=== PATIENT | male | born 1950 | race Caucasian/White ===

== ENCOUNTER 2019-05-07 16:52 | Outpatient (RCR) | payer MEDICARE, MEDICAID, SELFPAY | END 2019-06-03 00:01 | LOC: WPT 16:52 | PROVIDERS: Family Provider Nurse Practitioner Family; Visit Provider Nurse Practitioner Family | DX: M23.303 Other meniscus derangements, unspecified medial meniscus, right knee (principal) | CPT/HCPCS: 97110 ×5; 97112; 97162 ==

== ENCOUNTER → 2019-06-24 09:29 | Outpatient (BNVA) | payer MEDICARE, MEDICAID, SELFPAY | PROVIDERS: Family Provider Nurse Practitioner Family; PCP Nurse Practitioner Family; Visit Provider Nurse Practitioner | DX: M17.0 Bilateral primary osteoarthritis of knee (principal); E11.40 Type 2 diabetes mellitus with diabetic neuropathy, unspecified; F17.220 Nicotine dependence, chewing tobacco, uncomplicated; Z79.891 Long term (current) use of opiate analgesic | CPT/HCPCS: 99213; 99214 ==

== ENCOUNTER → 2019-07-11 12:12 | Outpatient (BNVA) | payer MEDICARE, MEDICAID, SELFPAY | PROVIDERS: Family Provider Nurse Practitioner Family; PCP Nurse Practitioner Family; Visit Provider Nurse Practitioner Family | DX: E11.9 Type 2 diabetes mellitus without complications (principal); E34.9 Endocrine disorder, unspecified; Z12.5 Encounter for screening for malignant neoplasm of prostate; D64.9 Anemia, unspecified; E11.621 Type 2 diabetes mellitus with foot ulcer; E11.69 Type 2 diabetes mellitus with other specified complication; F52.21 Male erectile disorder | CPT/HCPCS: 36415; 80053; 83036; 83540; 84403; 85025; G0103 ==

== ENCOUNTER → 2019-07-23 11:28 | Outpatient (BNVA) | payer MEDICARE, MEDICAID, SELFPAY | PROVIDERS: Family Provider Nurse Practitioner Family; PCP Nurse Practitioner Family; Visit Provider Nurse Practitioner Family | DX: L98.499 Non-pressure chronic ulcer of skin of other sites with unspecified severity (principal); M79.672 Pain in left foot; M25.872 Other specified joint disorders, left ankle and foot; M77.32 Calcaneal spur, left foot | CPT/HCPCS: 11042; 73630 ==

== ENCOUNTER 2019-07-28 09:31 | Outpatient (RCR) | payer MEDICARE, MEDICAID, SELFPAY | END 2019-08-02 23:59 | disposition home or self-care (01) | LOC: WOUND 09:31 | PROVIDERS: Family Provider Nurse Practitioner Family; PCP Nurse Practitioner Family; Visit Provider Nurse Practitioner Family | DX: E11.621 Type 2 diabetes mellitus with foot ulcer (principal); L97.522 Non-pressure chronic ulcer of other part of left foot with fat layer exposed | CPT/HCPCS: 11042; 87070; 87077; 87176; 87186; 87205; 99203; 99213; G0463; L3260 ==

== ENCOUNTER 2019-08-11 09:35 | Outpatient (RCR) | payer MEDICARE, MEDICAID, SELFPAY | END 2019-09-02 23:59 | disposition home or self-care (01) | LOC: WOUND 09:35 | PROVIDERS: Family Provider Nurse Practitioner Family; PCP Nurse Practitioner Family; Visit Provider Nurse Practitioner Family | DX: E11.621 Type 2 diabetes mellitus with foot ulcer (principal); L97.522 Non-pressure chronic ulcer of other part of left foot with fat layer exposed | CPT/HCPCS: 99212; 99214; G0463 ==

== ENCOUNTER → 2019-08-15 11:35 | Outpatient (BNVA) | payer MEDICARE, MEDICAID, SELFPAY | PROVIDERS: Family Provider Nurse Practitioner Family; PCP Nurse Practitioner Family; Visit Provider Nurse Practitioner Family | DX: E11.621 Type 2 diabetes mellitus with foot ulcer (principal); E11.69 Type 2 diabetes mellitus with other specified complication | CPT/HCPCS: 80053; 85025 ==

== ENCOUNTER → 2019-08-19 10:17 | Outpatient (BNVA) | payer MEDICARE, MEDICAID, SELFPAY | PROVIDERS: Family Provider Nurse Practitioner Family; PCP Nurse Practitioner Family; Visit Provider Nurse Practitioner | DX: M17.0 Bilateral primary osteoarthritis of knee (principal); E11.69 Type 2 diabetes mellitus with other specified complication; E11.40 Type 2 diabetes mellitus with diabetic neuropathy, unspecified; F17.210 Nicotine dependence, cigarettes, uncomplicated; Z79.891 Long term (current) use of opiate analgesic; Z71.6 Tobacco abuse counseling | CPT/HCPCS: 99213; 99214 ==

== ENCOUNTER → 2019-09-23 11:45 | Outpatient (BNVA) | payer MEDICARE, MEDICAID, SELFPAY | PROVIDERS: Family Provider Nurse Practitioner Family; PCP Nurse Practitioner Family; Visit Provider Nurse Practitioner Family | DX: E11.9 Type 2 diabetes mellitus without complications (principal); E11.69 Type 2 diabetes mellitus with other specified complication; E34.9 Endocrine disorder, unspecified | CPT/HCPCS: 80053; 84403 ==

== ENCOUNTER → 2019-10-09 14:05 | Outpatient (BNVA) | payer MEDICARE, MEDICAID, SELFPAY | PROVIDERS: Family Provider Nurse Practitioner Family; PCP Nurse Practitioner Family; Visit Provider Nurse Practitioner Family | DX: E11.29 Type 2 diabetes mellitus with other diabetic kidney complication (principal); E34.9 Endocrine disorder, unspecified; Z12.5 Encounter for screening for malignant neoplasm of prostate; D64.9 Anemia, unspecified; E11.621 Type 2 diabetes mellitus with foot ulcer; E11.69 Type 2 diabetes mellitus with other specified complication; F52.21 Male erectile disorder; E29.1 Testicular hypofunction; E11.65 Type 2 diabetes mellitus with hyperglycemia; I10 Essential (primary) hypertension; E55.9 Vitamin D deficiency, unspecified; K59.04 Chronic idiopathic constipation | CPT/HCPCS: 80053; 81001; 82306; 82607; 83036; 83540; 84443; 85025 ==

== ENCOUNTER → 2019-11-11 10:39 | Outpatient (BNVA) | payer MEDICARE, MEDICAID, SELFPAY | PROVIDERS: Family Provider Nurse Practitioner Family; PCP Nurse Practitioner Family; Visit Provider Nurse Practitioner Family | DX: E11.9 Type 2 diabetes mellitus without complications (principal); E34.9 Endocrine disorder, unspecified | CPT/HCPCS: 80053; 81001 ==

== ENCOUNTER 2019-11-13 14:31 | Outpatient (CLI) | payer MEDICARE, MEDICAID, SELFPAY ==
--- NOTE | 2019-11-13 | XR_ITS ---
WS: [id number] Left foot, 3 views, 11/13/2019 Clinical Data: PAIN, REDNESS, NON HEALING ULCER Comparison: Left foot, 07/23/2019 Findings: Patient has developed soft tissue swelling with subcutaneous air medial to the left first proximal an d distal phalanges. Cystic changes of the left first proximal phalanx again are noted. There is no spencer ne erosion or destruction associated with this subcutaneous air. The remainder of the phalanges show no changes from before. The tarsal bones and metatarsals are intact. There is a bunion at the head of the left first metatarsal. There is soft tissue swelling about the foot. No fractures or dislocations are seen. XR/XR foot LT min 3V* [id number] Impression: 1. Soft tissue swelling with soft tissue air medial to the left first toe which could represent soft tissue infection. 2. No evidence of bone destruction or osteomyelitis. 3. Osteoarthritic change with bunion at the head of the left first metatarsal. 4. Generalized swelling about the left foot.
[2019-11-13 16:44] LABS: Alanine Aminotransferase 12 U/L (0-41); Alkaline Phosphatase 83 IU/L (40-130); Anion Gap 17.2 (5-19); Aspartate Amino Transferase 15 U/L (0-40); Blood Urea Nitrogen 27 mg/dL (8-23); Calcium 9.3 mg/dL (8.5-10.5); Carbon Dioxide 25 mmol/L (22-29); Chloride 95 mmol/L (98-107); Globulin 2.8 g/dL (1.3-4.6); Glomerular Filtration Rate 37.6 mL/min (90-130); Glucose 233 mg/dL (65-115); Osmolality Calculated 280 mOsm/kg (285-295); Potassium 4.2 mmol/L (3.5-5.1); Sodium 133 mmol/L (136-145); Total Bilirubin 0.7 mg/dL (0.15-1.2); Total Protein 6.8 g/dL (6.6-8.7)
[2019-11-13 16:56] LABS: Basophils % 0.4 %; Eosinophils # 0.2 10^3/uL (0.0-0.8); Hematocrit 37.5 % (42.0-52.0); Hemoglobin 11.8 g/dL (11.7-16.6); Lymphocytes # 0.8 10^3/uL (0.8-4.8); Lymphocytes % 9.7 %; Mean Corpuscular HGB Conc 31.5 g/dL (30.0-36.0); Mean Corpuscular Hemoglobin 29.4 pg (28.0-34.0); Mean Corpuscular Volume 93.3 fL (80-94); Mean Platelet Volume 10.6 fL (7.4-10.4); Monocytes # 0.8 10^3/uL (0.2-0.9); Monocytes % 10.5 %; Neutrophils # 6.1 10^3/uL (1.8-7.7); Neutrophils % 75.9 %; Nucleated Red Blood Cells % 0 %; Platelet Count 121 10^3/cmm (130-400); Red Blood Count 4.02 10^6/uL (4.1-5.3); Red Cell Distribution Width 15.6 % (12.1-15.1)
== END 2019-11-13 14:32 | disposition home or self-care (01) ==
LOC: WOUND 14:33
PROVIDERS: Family Provider Nurse Practitioner Family; PCP Nurse Practitioner Family; Visit Provider Nurse Practitioner Family
DX: E11.621 Type 2 diabetes mellitus with foot ulcer (principal); L97.522 Non-pressure chronic ulcer of other part of left foot with fat layer exposed; M79.671 Pain in right foot
CPT/HCPCS: 36415; 73630; 80053; 85025; 99214; G0463

== ENCOUNTER 2019-11-14 15:16 | Outpatient (CLI) | payer MEDICARE, MEDICAID, SELFPAY | END 2019-11-14 15:17 | disposition home or self-care (01) | LOC: WOUND 15:17 | PROVIDERS: Family Provider Nurse Practitioner Family; PCP Nurse Practitioner Family; Visit Provider Surgery | DX: E11.621 Type 2 diabetes mellitus with foot ulcer (principal); L97.522 Non-pressure chronic ulcer of other part of left foot with fat layer exposed | CPT/HCPCS: 11043; 87070; 87077; 87176; 87186; 87205 ==

== ENCOUNTER 2019-11-15 21:13 | Inpatient (IN) | payer MEDICARE, MEDICAID, SELFPAY ==
[2019-11-15 22:01] VITALS: BP 126/72; PULSE 62; RESP 18; TEMP 37.2; O2SAT 97; BMI 37.3
--- NOTE | 2019-11-15 22:54 | XRR_ITS ---
PROCEDURE INFORMATION: Exam: XR Left Foot Complete Exam date and time: 11/15/2019 10:57 PM Age: 69 years old Clinical indication: Condition or disease; Other: Wound on left great toe; Prior surgery; Surgery date: Post-operative (0-2 days) TECHNIQUE: Imaging protocol: XR Left foot. Views: 3 or more views. COMPARISON: No relevant prior studies available. FINDINGS: Bones/joints: No definite radiographic evidence of osteolytic process to suggest active osteomyelitis left hallux. Primary osteoarthritis. Hammertoe deformities. Osteopenia. Soft tissues: Soft tissue swelling of the left hallux to include evidence of an open wound along the medial plantar aspect. Soft tissue swelling extensor surface of the left forefoot. No visible subcutaneous emphysema or radiopaque foreign body. XR/XR foot LT min 3V* [id number] IMPRESSION: No definite radiographic evidence of osteomyelitis left hallux.
[2019-11-15 23:11] LABS: Basophils % 0.6 %; Eosinophils # 0.2 10^3/uL (0.0-0.8); Eosinophils % 4.7 %; Hematocrit 38.2 % (42.0-52.0); Hemoglobin 11.8 g/dL (11.7-16.6); Lymphocytes # 1.2 10^3/uL (0.8-4.8); Lymphocytes % 23.9 %; Mean Corpuscular HGB Conc 30.9 g/dL (30.0-36.0); Mean Corpuscular Hemoglobin 28.5 pg (28.0-34.0); Mean Corpuscular Volume 92.3 fL (80-94); Mean Platelet Volume 9.9 fL (7.4-10.4); Monocytes # 0.5 10^3/uL (0.2-0.9); Monocytes % 10.5 %; Neutrophils % 59.7 %; Nucleated Red Blood Cells % 0 %; Platelet Count 149 10^3/cmm (130-400); Red Blood Count 4.14 10^6/uL (4.1-5.3); Red Cell Distribution Width 15.3 % (12.1-15.1); White Blood Count 5.1 10^3/uL (4.0-10.0)
[2019-11-15] MEDS: piperacillin-tazobactam 3.375 GM in sodium chloride 0.9% (plus) 50 ML IV (23:18)
[2019-11-15 23:19] VITALS: BP 130/71; PULSE 57; RESP 16; O2SAT 96
[2019-11-15 23:29] LABS: Alanine Aminotransferase 20 U/L (0-41); Alkaline Phosphatase 87 IU/L (40-130); Anion Gap 19.6 (5-19); Aspartate Amino Transferase 17 U/L (0-40); Blood Urea Nitrogen 25 mg/dL (8-23); C Reactive Protein 87.9 mg/L (0.0-4.9); Calcium 9.4 mg/dL (8.5-10.5); Carbon Dioxide 23 mmol/L (22-29); Chloride 94 mmol/L (98-107); Globulin 3.6 g/dL (1.3-4.6); Glomerular Filtration Rate 37.6 mL/min (90-130); Glucose 200 mg/dL (65-115); Osmolality Calculated 276 mOsm/kg (285-295); Potassium 4.6 mmol/L (3.5-5.1); Sodium 132 mmol/L (136-145); Total Bilirubin 0.5 mg/dL (0.15-1.2); Total Protein 7.6 g/dL (6.6-8.7)
[2019-11-15] MEDS: vancomycin 1,000 MG in sodium chloride 0.9% 250 ML 250 MG IV (23:51)
[2019-11-16] VITALS (9 sets, daily range): BP systolic 112–174; BP diastolic 64–78; PULSE 55–70; RESP 16–18; TEMP 36.4–37.1; O2SAT 94–99
--- NOTE | 2019-11-16 00:03 | W.ED.SKABFB ---
HPI - Skin/Abscess/Foreign Bdy General: Chief complaint: Skin/Abscess/Foreign Body Stated complaint: LEFT FOOT WOUND/DIABETIC Time Seen by Provider: 11/15/19 22:38 History of Present Illness: HPI narrative: 69-year-old diabetic male presenting with an open wound on the left toe with swelling, increased redness, and a temperature of 99 at above at home. He has been dealing with a diabetic wound to that left toe for quite some time. He was debrided in the wound care clinic earlier in the week. He was placed on antibiotics on . The toe swelling is getting worse. was concerned because of some quite material within the wound itself. complaint: lesion and other Onset (ago): day(s) Tetanus up to date: yes Location: L foot (Great toe) Severity: moderate Quality: other Pain Consistency: constant Associated symptoms: Reports fever(s); Deny nausea, short of breath or vomiting Treatments prior to arrival: bandages, antibiotic and other (Debridement) Review of Systems Const: Reports: fever(s) Eyes: Denies: change in vision ENMT: Denies: odynophagia, epistaxis or sinus pain Card: Reports: swelling of feet/ankles; Denies: chest pain, palpitations or irregular heart rhythm Resp: Denies: dyspnea, productive cough, non-productive cough or wheezing GI: Denies: nausea or vomiting : Denies: difficulty urinating or dysuria Musc: Reports: joint redness and joint warmth; Denies: neck pain or back pain Skin/Breast: Reports: rash and erythema; Denies: pruritus Neuro: Denies: headache(s), dizziness or vertigo Psych: Denies: anxiety PFSH ED PFSH: Medical History Chewing tobacco use Chronic gout DDD (degenerative disc disease) Diabetic neuropathy, painful Encounter for long-term opiate analgesic use Erectile disorder, lifelong, generalized, mild Essential hypertension History of diabetic ulcer of foot Hypotestosteronemia Mixed hyperlipidemia Opioid contract exists Primary osteoarthritis of knees, bilateral Type 2 diabetes mellitus with other specified complication Last A1c 6.7 Type 2 diabetes mellitus without complications Vitamin D deficiency Surgical History Hx of basal cell carcinoma excision 11/29/18- WIDE LOCAL EXCISION BASAL CELL CARCINOMA REMOVED FROM CHEST S/P debridement 11/14/2019 Dr. Taylor S/P routine circumcision Family History Other Heart disease Kidney disease Denies family history of Anesthesia complication Bleeding disorder Social History Smoking and tobacco status: never smoked Alcohol intake: current Alcohol intake frequency: other Alcohol type: beer Counseling given: Yes Type of alcohol counseling provided: other Other alcohol counseling details: DISCUSSED ALCOHOL USE PROHIBITED WITH PAIN MEDICATIONS Current occupational status: retired Physical Exam Const: GENERAL APPEARANCE: well developed ORIENTATION/CONSCIOUSNESS: Yes oriented to person, Yes oriented to place and Yes oriented to time HENMT: COMMON NORMALS: normocephalic, external ears normal and Normal external nose present HEAD & SCALP: normocephalic FACE & SINUS: normal facial exam NOSE: Normal external nose present and No nasal discharge present EXTERNAL EAR: Yes external ears normal MOUTH: tongue normal Eye: COMMON NORMALS: Equal, round and reactive pupils present, EOMs intact bilaterally and conjunctivae normal EYELID: eyelids normal CONJUNCTIVA: Yes conjunctivae normal PUPIL: Yes Equal, round and reactive pupils present Neck/C-Spine: GENERAL: No tracheal deviation Chest: COMMONS NORMALS: normal inspection of the chest CHEST: No tenderness Resp: COMMON NORMALS: clear to auscultation bilaterally EFFORT & INSPECTION: No tachypneic, No respiratory distress, No retractions, No uses accessory muscles and No tracheal deviation AUSCULTATION: clear to auscultation bilaterally, no rhonchi, no wheezes and lung sounds not diminished Cardio: COMMON NORMALS: regular rate and regular rhythm RATE: regular rate RHYTHM: regular rhythm HEART SOUNDS: no murmurs PERIPHERAL PULSES: radial pulses present GI: INSPECTION: No abdominal distension AUSCULTATION: No Hyperactive bowel sounds present and No Hypoactive bowel sounds present PALPATION: No Guarding due to palpation present (GI) and No Rigid due to palpation PERCUSSION: no dullness to percussion and no tympanic to percussion Extremity: NARRATIVE EXTREMITY EXAM: Left great toe medial debridement wound. Granulation tissue at the base. Margins are well demarcated and vascular. There is significant swelling to the dorsum of the toe, with some air present. Mild discoloration with beefy erythema. No lymphangitic streaking. Neuro: SENSORIUM/ORIENTATION: Yes oriented to person, Yes oriented to place and Yes oriented to time Psych: COMMON NORMALS: mental status grossly normal Skin: COMMON NORMALS: no rashes or lesions noted GENERAL SKIN EXAM: no rashes or lesions noted Course Vital Signs: Vital signs: Vital Signs Temperature 97.6 F 11/16/19 04:34 Pulse Rate 61 11/16/19 04:34 Respiratory Rate 16 11/16/19 04:34 Blood Pressure 142/71 11/16/19 04:34 Pulse Oximetry 99 11/16/19 04:34 MDM - Skin/Abscess/Foreign Bdy MDM Narrative: Medical decision making narrative: 69-year-old diabetic male. He presents with a temperature, increased swelling to the left great toe following debridement a couple of days ago. There appears to be some air present over the dorsum of the toe. The wound itself looks good, no osteomyelitis on x-ray. Patient's white count is only 5, but his CRP is 90. We are not assured home health and PICC line placement in the next 24 hours. He will be admitted for IV antibiotics, and will be seen by the wound care surgeon. Lab Data: Labs: Lab Results 11/15/19 11/15/19 11/15/19 Range/Units 01:52 23:00 23:00 WBC 5.1 (4.0-10.0) 10^3/ uL RBC 4.14 (4.1-5.3) 10^6/u L Hgb 11.8 (11.7-16.6) g/dL Hct 38.2 L (42.0-52.0) % MCV 92.3 (80-94) fL MCH 28.5 (28.0-34.0) pg MCHC 30.9 (30.0-36.0) g/dL RDW 15.3 H (12.1-15.1) % Plt Count 149 (130-400) 10^3/c mm MPV 9.9 (7.4-10.4) fL Neut % (Auto) 59.7 % Lymph % (Auto) 23.9 % [place] % (Auto) 10.5 % Eos % (Auto) 4.7 % Baso % (Auto) 0.6 % Neut # (Auto) 3.0 (1.8-7.7) 10^3/u L Lymph # (Auto) 1.2 (0.8-4.8) 10^3/u L [place] # (Auto) 0.5 (0.2-0.9) 10^3/u L Eos # (Auto) 0.2 (0.0-0.8) 10^3/u L Baso # (Auto) 0.0 (0.0-0.1) 10^3/u L Nucleated RBC % (a uto) 0 % Nucleated RBCs # 0.0 /100WBC ESR 75 H (0-10) mm/hr Sodium 132 L (136-145) mmol/L Potassium 4.6 (3.5-5.1) mmol/L Chloride 94 L (98-107) mmol/L Carbon Dioxide 23 (22-29) mmol/L Anion Gap 19.6 H (5-19) BUN 25 H (8-23) mg/dL Creatinine 1.8 H (0.7-1.2) mg/dL GFR Calculation 37.6 L (90-130) mL/min Glucose 200 H (65-115) mg/dL Calculated Osmolal ity 276 L (285-295) mOsm/k g Calcium 9.4 (8.5-10.5) mg/dL Total Bilirubin 0.5 (0.15-1.2) mg/dL AST 17 (0-40) U/L ALT 20 (0-41) U/L Alkaline Phosphata se 87 (40-130) IU/L C-Reactive Protein 87.9 H (0.0-4.9) mg/L Total Protein 7.6 (6.6-8.7) g/dL Albumin 4.0 (3.5-5.2) g/dL Globulin 3.6 (1.3-4.6) g/dL Discharge Plan Discharge Admit Provider: Edgardo Smith Clinical Impression: 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 Fwd Exam Comprehensive
--- NOTE | 2019-11-16 00:31 | PM.HP ---
Providers/Chief Complaint Primary Care Provider: KASSANDRA Corrales Chief Complaint: LEFT FOOT WOUND/DIABETIC History of Present Illness Alen Maya is a 69 year old male who has history of type 2 diabetes, hypertension, opioid induced constipation, who had wound debridement done by Dr. Taylor on left great toe, wound culture grew strep agalactiae, staph epidermidis and staph intermedius penicillin sensitive came in today with worsening swelling of foot. Patient had wound debridement done this Sunday, he thinks he was discharged on Bactrim, he did not spike any fever at home, no nausea vomiting or chills noted. He has been using wet-to-dry dressing at home, he has been careful with his wound care but his left foot is getting more swollen and there is purulent drainage coming out of base of the wound. Swelling is extending up to his calf muscle. Diagnostics in the ER revealed purulent cellulitis of left great toe, he was given vancomycin and Zosyn, I am adding blood cultures, ESR CRP is high No signs of sepsis Previous wound culture reviewed Foot x-ray did not reveal active osteomyelitis but shows worsening edema Review of Systems Const: Reports: body aches and fatigue; Denies: fever(s) or chills Eyes: Denies: change in vision ENMT: Denies: throat pain Card: Denies: chest pain Resp: Denies: dyspnea GI: Reports: constipation; Denies: abdominal pain, nausea or vomiting : Denies: flank pain or difficulty urinating Musc: Reports: joint pain, joint redness, joint warmth and limited range of motion Skin/Breast: Reports: rash, erythema, skin pain, skin tenderness and new lesions Neuro: Denies: headache(s) Psych: Denies: anxiety Endo: Denies: polyuria Chris/Lymph: Denies: easy bruising All/Imm: Denies: urticaria Medications/Allergies Home Medications Medication Instructions Recorded Confirmed Last Taken Type clopidogrel 75 mg tablet 75 mg PO QDAY #30 tab 06/23/19 10/08/19 Unknown Rx meloxicam 15 mg tablet 15 mg PO QDAY 06/23/19 10/08/19 Unknown History aspirin 81 mg tablet,delayed 81 mg PO QDAY 06/24/19 10/08/19 Unknown History release sildenafil 100 mg tablet 50 - 100 mg PO QDAY PRN 30 Days 07/11/19 10/08/19 Unknown Rx #30 tab carvedilol 25 mg tablet 25 mg PO BID #60 tab 07/22/19 10/08/19 Unknown Rx diclofenac sodium 1 % topical gel 4 gm TOPICAL BID PRN #100 gm 07/22/19 10/08/19 Unknown Rx hydrochlorothiazide 25 mg tablet 25 mg PO QDAY #30 tab 07/22/19 10/08/19 Unknown Rx testosterone cypionate 200 mg/mL 200 mg IM .every 2 weeks 30 Days 07/23/19 10/08/19 Unknown Rx intramuscular oil #2.5 ml allopurinol 300 mg tablet 300 mg PO QDAY #30 tab 08/19/19 10/08/19 Unknown Rx lisinopril 40 mg tablet 40 mg PO QDAY #30 tab 08/19/19 10/08/19 Unknown Rx potassium chloride 10 mEq 10 meq PO QDAY #30 tab 08/19/19 10/08/19 Unknown Rx tablet,extended release(part/cryst) ibuprofen 800 mg tablet 800 mg PO Q8H PRN #60 tab 09/17/19 10/08/19 Unknown Rx gabapentin 800 mg tablet 800 mg PO TID #90 tab 10/08/19 10/08/19 Unknown Rx hydrocodone 5 mg-acetaminophen 325 1 tab PO BID PRN 30 Days #60 tab 10/08/19 10/08/19 Unknown Rx mg tablet hydrocodone 5 mg-acetaminophen 325 1 tab PO BID PRN 30 Days #60 tab 10/08/19 10/08/19 Unknown Rx mg tablet lubiprostone 8 mcg capsule 8 mcg PO BID 30 Days #60 cap 10/09/19 10/09/19 Unknown Rx atorvastatin 20 mg tablet 20 mg PO .at bedtime #30 tab 10/14/19 Unknown Rx sitagliptin 100 mg tablet 100 mg PO QDAY #30 tab 10/14/19 Unknown Rx empagliflozin 10 mg tablet 10 mg PO DAILY 30 Days #30 tab 11/07/19 Unknown Rx pioglitazone 15 mg tablet 15 mg PO QDAY #30 tab 11/07/19 Unknown Rx testosterone cypionate 200 mg/mL 200 mg IM .Q 2 WEEKS 30 Days #2 ml 11/09/19 11/09/19 Unknown Rx intramuscular oil Allergies Allergy/AdvReac Type Severity Reaction Status Date / Time pregabalin [From Lyrica] Allergy swelling Verified 10/09/19 10:03 in lower extremeties PFSH Acute PFSH: Medical History Chewing tobacco use Chronic gout DDD (degenerative disc disease) Diabetic neuropathy, painful Encounter for long-term opiate analgesic use Erectile disorder, lifelong, generalized, mild Essential hypertension History of diabetic ulcer of foot Hypotestosteronemia Mixed hyperlipidemia Opioid contract exists Primary osteoarthritis of knees, bilateral Type 2 diabetes mellitus with other specified complication Last A1c 6.7 Type 2 diabetes mellitus without complications Vitamin D deficiency Surgical History Hx of basal cell carcinoma excision 11/29/18- WIDE LOCAL EXCISION BASAL CELL CARCINOMA REMOVED FROM CHEST S/P debridement 11/14/2019 Dr. Taylor S/P routine circumcision Family History Other Heart disease Kidney disease Denies family history of Anesthesia complication Bleeding disorder Social History Smoking and tobacco status: never smoked Alcohol intake: current Alcohol intake frequency: other Alcohol type: beer Counseling given: Yes Type of alcohol counseling provided: other Other alcohol counseling details: DISCUSSED ALCOHOL USE PROHIBITED WITH PAIN MEDICATIONS Current occupational status: retired Vitals/I&O/Wt Last Vital Signs Temp 98.9 F 11/15/19 22:01 Pulse 57 L 11/15/19 23:19 Resp 16 11/15/19 23:19 BP 130/71 11/15/19 23:19 Pulse Ox 96 11/15/19 23:19 11/15/19 11/15/19 11/16/19 14:59 22:59 06:59 Intake Total 50 / 50 Balance 50 / 50 Weight last 48 hrs Weight 124.738 kg Physical Exam Narrative: EXAM NARRATIVE: Head to toe examination Obese male sitting comfortably in his bed No signs of sepsis EOMI, PERRLA Awake alert oriented x3 GCS 15 No neurological deficit S1, S2 no sinus tachycardia heart failure Abdomen soft, distended, visceral obesity, bloated, nontender Lungs are clear to auscultation without adventitious sounds Left lower extremity 1+ edema as compared to right Dorsalis pedis pulse 1+ bilaterally Left pedal edema positive, hyperemia around dorsum of the foot, purulent cellulitis of left great toe, purulent base, hyperemic edges, I do not see any granulation tissue No crepitation Data : 11/15/19 23:00 11/15/19 23:00 A&P Assessment and plan (1) Cellulitis and abscess of foot: Status: Acute (2) Therapeutic opioid induced constipation: Status: Acute (3) Type 2 diabetes mellitus with neuropathy causing erectile dysfunction: Status: Acute (4) Essential hypertension: Status: Chronic (5) Vitamin D deficiency: Status: Acute Additional A&P Information Purulent cellulitis of diabetic foot ulcer Recent debridement at wound care clinic I will start vancomycin and Zosyn Previous wound culture grew staph epidermidis intermedius and strep agalactiae He was not bacteremic Current foot x-ray is showing worsening of edema without any bony enhancement for osteomyelitis No acute indication for debridement, I have not noticed any crepitations, patient is not septic Dr. Campbell consulted High CRP, will check ESR, obtain blood cultures Opioid-induced constipation Would use senna and MiraLAX His last bowel movement was today Type 2 diabetes with erectile dysfunction and neuropathy Last A1c 6.7 Moderate sliding scale, consistent carb diet Hypertension: He is on 3 antihypertensive agents Coreg, hydrochlorothiazide and lisinopril Holding lisinopril for now and hydrochlorothiazide Creatinine seems to be worsened from baseline, his baseline is around 1.4-1.5 current creatinine is 1.8 He has also used Bactrim which could also cause pseudo hypercreatininemia Full code Consistent carb DVT prophylaxis Heparin Attestations Medical Necessity Statement*: Anticipating stay in the hospital cross more than 2 midnights continued IV antibiotics for purulent cellulitis Time Spent in Patient Care: (>than 50% of time spent in counselling and/or direct pt care on unit). 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
--- NOTE | 2019-11-16 01:52 | USCV_ITS ---
Alen Maya Age: 69 Gender: M : 1950 Exam Date: 11/16/2019 08:49 Ordering Phys: Edgardo Smith MD Technologist: Sonia Traylor Exam Location: [facility] – [place] Indication: Swelling HISTORY: Left lower extremity swelling. PROCEDURES: Comparison: none available. Venous duplex imaging was performed in only the left lower extremity. The following venous structures were evaluated: common femoral vein, profunda vein, proximal portion of the greater saphenous vein, superficial femoral vein, and the popliteal vein. In addition, the posterior tibial and peroneal trunk were evaluated. Serial compression, augmentation maneuvers, and spectral Doppler flow evaluation were performed. FINDINGS: No evidence of DVT seen in any vessel visualized at this time. Calf edema noted. CONCLUSIONS No evidence of DVT in the above-mentioned identifiable veins. Dr Francesco Ty MD [facility] (Electronically Signed) Final Date: 16 November 2019 14:12 S
--- NOTE | 2019-11-16 02:22 | PC.PHAR ---
Vancomycin is dosed at 1gm IVPB ever 12 hours to produce a predicted trough level of 18.93 (population based pharmacokinetic analysis). A trough level has been ordered from the lab to be obtained before the fourth dose to confirm and adjust if neded. The Zosyn is dosed at 3.375gm IVPB every 8 hours, each dose to be infused over 4 hours per extended infusion protocol.
[2019-11-16] MEDS: heparin 5,000 unit/mL INJ 1 mL 5000 UNIT SUBCUT ×3 (02:55→17:31)
[2019-11-16 03:15] LABS: Erythrocyte Sedimentation Rate 75 mm/hr (0-10)
[2019-11-16 06:09] LABS: Basophils % 0.5 %; Eosinophils # 0.2 10^3/uL (0.0-0.8); Eosinophils % 5.5 %; Hematocrit 35.2 % (42.0-52.0); Lymphocytes # 1.1 10^3/uL (0.8-4.8); Lymphocytes % 29.4 %; Mean Corpuscular HGB Conc 31.3 g/dL (30.0-36.0); Mean Corpuscular Hemoglobin 28.1 pg (28.0-34.0); Mean Platelet Volume 10.3 fL (7.4-10.4); Monocytes # 0.5 10^3/uL (0.2-0.9); Monocytes % 11.7 %; Neutrophils % 52.6 %; Nucleated Red Blood Cells % 0 %; Platelet Count 140 10^3/cmm (130-400); Red Blood Count 3.91 10^6/uL (4.1-5.3); Red Cell Distribution Width 15.3 % (12.1-15.1); White Blood Count 3.8 10^3/uL (4.0-10.0)
[2019-11-16 06:13] LABS: Glucose Point of Care 171 mg/dL (70-110)
[2019-11-16 06:25] LABS: Lactic Acid level (Lactate) 0.8 mmol/L (0.5-2.2)
[2019-11-16 06:37] LABS: Anion Gap 18.3 (5-19); Blood Urea Nitrogen 22 mg/dL (8-23); Calcium 9.1 mg/dL (8.5-10.5); Carbon Dioxide 23 mmol/L (22-29); Chloride 100 mmol/L (98-107); Creatinine Clr Calc Pharmacy 59.4472; Glomerular Filtration Rate 43.1 mL/min (90-130); Glucose 149 mg/dL (65-115); Osmolality Calculated 283 mOsm/kg (285-295); Potassium 4.3 mmol/L (3.5-5.1); Sodium 137 mmol/L (136-145)
[2019-11-16] MEDS: piperacillin-tazobactam 3.375 GM in sodium chloride 0.9% (plus) 50 ML IV ×3 (06:46→22:54)
--- NOTE | 2019-11-16 06:55 | PC.NURSE ---
Shift Summary Patient rested well through the night without complaints of pain. Patient was able to walk to the bathroom without assistance.
--- NOTE | 2019-11-16 07:50 | PM.CONSULT ---
Providers/Reason For Consult Consulting Physican/Specialty*: Dr. Bravo Reason for Consult*: Diabetic ulcer Attending Physician: Maggie Bravo MD Primary Care Provider: KASSANDRA Corrales History of Present Illness History of Present Illness Alen Maya is a 69 year old male who is a patient of Dr. Taylor and was admitted to the hospital couple of days ago with cellulitis of his left foot. Patient had been on oral antibiotics at home but the foot continued to worsen and therefore he was admitted to the hospital for IV antibiotics since the redness and swelling extended up to his mid leg. Patient is admitted to the hospital on IV vancomycin and Zosyn and I was consulted for surgical debridement Review of Systems General: Reports: 10 or more systems reviewed and unremarkable except in HPI and below Meds/Allergies Home Medications and Allergies Home Medications Medication Instructions Recorded Confirmed Last Taken Type clopidogrel 75 mg tablet 75 mg PO QDAY #30 tab 06/23/19 11/16/19 11/15/19 Rx meloxicam 15 mg tablet 15 mg PO QDAY 06/23/19 11/16/19 11/15/19 History aspirin 81 mg tablet,delayed 81 mg PO QDAY 06/24/19 11/16/19 11/15/19 History release sildenafil 100 mg tablet 50 - 100 mg PO QDAY PRN 30 Days 07/11/19 11/16/19 11/15/19 Rx #30 tab carvedilol 25 mg tablet 25 mg PO BID #60 tab 07/22/19 11/16/19 11/15/19 Rx diclofenac sodium 1 % topical gel 4 gm TOPICAL BID PRN #100 gm 07/22/19 11/16/19 11/15/19 Rx hydrochlorothiazide 25 mg tablet 25 mg PO QDAY #30 tab 07/22/19 11/16/19 11/15/19 Rx testosterone cypionate 200 mg/mL 200 mg IM .every 2 weeks 30 Days 07/23/19 11/16/19 Unknown Rx intramuscular oil #2.5 ml allopurinol 300 mg tablet 300 mg PO QDAY #30 tab 08/19/19 11/16/19 11/15/19 Rx lisinopril 40 mg tablet 40 mg PO QDAY #30 tab 08/19/19 11/16/19 11/15/19 Rx potassium chloride 10 mEq 10 meq PO QDAY #30 tab 08/19/19 11/16/19 11/15/19 Rx tablet,extended release(part/cryst) ibuprofen 800 mg tablet 800 mg PO Q8H PRN #60 tab 09/17/19 11/16/19 11/15/19 Rx gabapentin 800 mg tablet 800 mg PO TID #90 tab 10/08/19 11/16/19 11/15/19 Rx hydrocodone 5 mg-acetaminophen 325 1 tab PO BID PRN 30 Days #60 tab 10/08/19 11/16/19 11/15/19 Rx mg tablet lubiprostone 8 mcg capsule 8 mcg PO BID 30 Days #60 cap 10/09/19 11/16/19 11/15/19 Rx atorvastatin 20 mg tablet 20 mg PO .at bedtime #30 tab 10/14/19 11/16/19 11/15/19 Rx sitagliptin 100 mg tablet 100 mg PO QDAY #30 tab 10/14/19 11/16/19 11/15/19 Rx empagliflozin 10 mg tablet 10 mg PO DAILY 30 Days #30 tab 11/07/19 11/16/19 11/15/19 Rx pioglitazone 15 mg tablet 15 mg PO QDAY #30 tab 11/07/19 11/16/19 11/15/19 Rx testosterone cypionate 200 mg/mL 200 mg IM .Q 2 WEEKS 30 Days #2 ml 11/09/19 11/16/19 Unknown Rx intramuscular oil Allergies Allergy/AdvReac Type Severity Reaction Status Date / Time pregabalin [From Lyrica] Allergy swelling Verified 10/09/19 10:03 in lower extremeties Current Medications Current Medications Generic Name Dose Route Start Last Admin Trade Name Freq PRN Reason Stop Dose Admin Allopurinol 300 mg 11/16/19 01:52 11/16/19 02:54 Zyloprim PO Not Given DAILY [facility] Aspirin 81 mg 11/16/19 01:52 11/16/19 02:54 Aspirin Ec PO Not Given DAILY [facility] Atorvastatin Calcium 20 mg 11/16/19 01:52 11/16/19 02:55 Lipitor PO Not Given BEDTIME [facility] Heparin Sodium (Beef Lung) 5,000 unit 11/16/19 01:52 11/16/19 02:55 Heparin SUBCUT 5,000 unit Q8H [facility] Administration Piperacillin Sod/Tazobactam 50 mls @ 12.5 mls/hr 11/16/19 07:00 11/16/19 06:46 Sod 3.375 gm/ Sodium Chloride IV 12.5 mls/hr Q8H YESI Administration Protocol As Directed PFSH Acute PFSH: Medical History Chewing tobacco use Chronic gout DDD (degenerative disc disease) Diabetic neuropathy, painful Encounter for long-term opiate analgesic use Erectile disorder, lifelong, generalized, mild Essential hypertension History of diabetic ulcer of foot Hypotestosteronemia Mixed hyperlipidemia Opioid contract exists Primary osteoarthritis of knees, bilateral Type 2 diabetes mellitus with other specified complication Last A1c 6.7 Type 2 diabetes mellitus without complications Vitamin D deficiency Surgical History Hx of basal cell carcinoma excision 11/29/18- WIDE LOCAL EXCISION BASAL CELL CARCINOMA REMOVED FROM CHEST S/P debridement 11/14/2019 Dr. Taylor S/P routine circumcision Family History Other Heart disease Kidney disease Denies family history of Anesthesia complication Bleeding disorder Social History Smoking and tobacco status: never smoked Alcohol intake: current Alcohol intake frequency: other Alcohol type: beer Counseling given: Yes Type of alcohol counseling provided: other Other alcohol counseling details: DISCUSSED ALCOHOL USE PROHIBITED WITH PAIN MEDICATIONS Current occupational status: retired Vitals/I&O/Wt Last Vital Signs Temp 97.6 F 11/16/19 04:34 Pulse 61 11/16/19 04:34 Resp 16 11/16/19 04:34 BP 142/71 11/16/19 04:34 Pulse Ox 99 11/16/19 04:34 11/15/19 11/16/19 11/16/19 22:59 06:59 14:59 Intake Total 300 / 300 Balance 300 / 300 Weight last 48 hrs Weight 275 lb Physical Exam Narrative: EXAM NARRATIVE: HEENT: Normocephalic Eye: Sclera /conjunctiva normal Respiratory and chest: Bilateral clear breath sounds on auscultation Cardiovascular: Normal S1 and S2 heart sounds Abdomen: Soft to palpation Neurological: Oriented to place person and time Skin: Intact, cellulitis left foot with wound that measured 4 x 3 cm on the medial aspect of the left great toe with associated necrotic tissue. Data Micro: Micro: Microbiology 11/16/19 05:44 Blood Culture - Pr eliminary Blood SPECIMEN [facility] 11/16/19 05:40 Blood Culture - Pr eliminary Blood SPECIMEN [facility] A&P Assessment and plan (1) Toe ulcer due to secondary DM: 69-year-old gentleman who is a diabetic and has developed a diabetic foot ulcer on the left great toe which requires IV antibiotics and surgical debridement. After the area was prepped, excisional debridement of necrotic skin, subcutaneous tissue was performed until there was punctate bleeding noted, with the wound that measured about 4.5 x 3.5 x 3 cm. Hemostasis ensured with pressure application. Patient tolerated the procedure well. Pressure dressings were applied. Continue IV antibiotics Status: Acute Coding Level of Care Code Acute Lead Applier for [facility] Diagnoses Toe ulcer due to secondary DM E13.621; L97.509
[2019-11-16] MEDS: sennosides-docusate Tablet 1 TAB PO (08:09)
[2019-11-16] MEDS: carvedilol 25 mg Tablet PO ×2 (08:09→17:31)
[2019-11-16] MEDS: gabapentin 300 mg Capsule PO ×3 (08:09→22:56)
[2019-11-16] MEDS: allopurinol 300 mg Tablet PO (08:09)
[2019-11-16] MEDS: aspirin 81 mg EC Tablet PO (08:14)
[2019-11-16] MEDS: vancomycin 1,000 MG in sodium chloride 0.9% 250 ML 166 MG IV (10:35)
[2019-11-16 11:22] LABS: Glucose Point of Care 180 mg/dL (70-110)
--- NOTE | 2019-11-16 15:51 | P.PN_ITS ---
Subjective Subjective: Interval history: Chart reviewed, afebrile, hemodynamically stable, no leukocytosis, improved renal function. Had bedside debridement done of left foot wound by Dr. Campbell earlier this morning. Remains on vancomycin and Zosyn. Wound examined, dressing change done by nursing staff, patient states he will be leaving tomorrow as I have stuff to do. He follows up at the wound care clinic weekly on Mondays with Maye Ivy. Medications: Reviewed: Yes Medication Review Details: Active Medications Generic Name Dose Route Start Last Admin Trade Name Freq PRN Reason Stop Dose Admin Allopurinol 300 mg 11/16/19 01:52 11/16/19 08:09 Zyloprim PO 300 mg DAILY YESI Administration Aspirin 81 mg 11/16/19 01:52 11/16/19 08:14 Aspirin Ec PO 81 mg DAILY YESI Administration Atorvastatin Calci um 20 mg 11/16/19 01:52 11/16/19 02:55 Lipitor PO Not Given BEDTIME YESI Carvedilol 25 mg 11/16/19 09:00 11/16/19 08:09 Coreg PO 25 mg BID YESI Administration Dextrose 25 ml 11/16/19 01:52 D50w IVP ONCE PRN hypoglycemia prot ocol Protocol Dextrose 50 ml 11/16/19 01:52 D50w IVP PRN PRN hypoglycemia prot ocol Protocol Gabapentin 300 mg 11/16/19 09:00 11/16/19 14:33 Neurontin PO 300 mg TID EYSI Administration Glucagon 1 mg 11/16/19 01:52 Glucagen IM ONCE PRN Adult Acute Hypog lycemia Prot. Protocol Heparin Sodium (Be ef Lung) 5,000 unit 11/16/19 01:52 11/16/19 09:20 Heparin SUBCUT 5,000 unit Q8H YESI Administration Hydralazine HCl 10 mg 11/16/19 01:52 Apresoline IVP Q8H PRN Blood pressure gr eater than 180/100 Hydromorphone HCl 2 mg 11/16/19 01:52 Dilaudid Inj IVP Q4H PRN pain Dextrose 500 mls @ 100 mls /hr 11/16/19 01:52 D5w IV ONCE PRN Adult Acute Hypog lycemia Prot Protocol Vancomycin HCl 1,0 00 mg/ 250 mls @ 250 mls /hr 11/16/19 11:00 11/16/19 14:00 Sodium Chloride IV Infused Q12H YESI Infusion Protocol As Directed Piperacillin Sod/T azobactam 50 mls @ 12.5 mls /hr 11/16/19 07:00 11/16/19 14:33 Sod 3.375 gm/ So dium Chloride IV 12.5 mls/hr Q8H YESI Administration Protocol As Directed Insulin Aspart 0 unit 11/16/19 08:00 11/16/19 12:14 Novolog SUBCUT 4 unit WM&BEDTIME YESI Administration Protocol Non-Formulary Medi cation 8 mcg 11/16/19 09:00 11/16/19 07:49 Lubiprostone [Am itiza] PO Not Given BID YESI Polyethylene Glyco l 17 gm 11/16/19 09:00 11/16/19 08:11 Miralax PO Not Given DAILY YESI Senna/Docusate Sod ium 1 tab 11/16/19 09:00 11/16/19 08:09 Senna-S PO 1 tab DAILY YESI Administration pregabalin [From Lyrica] Allergy (Verified 10/09/19 10:03) swelling in lower extremeties Vitals/I&O/Wt Last Vital Signs Temp 98.4 F 11/16/19 12:00 Pulse 70 11/16/19 12:00 Resp 16 11/16/19 12:00 BP 146/74 11/16/19 12:00 Pulse Ox 95 11/16/19 12:00 11/16/19 11/16/19 11/16/19 06:59 14:59 22:59 Intake Total 300 / 300 660 / 660 Output Total 500 / 500 Balance 300 / 300 160 / 160 Weight last 48 hrs Weight 124.738 kg Physical Exam Const: COMMON NORMALS: no acute distress, patient oriented x3 and alert GENERAL APPEARANCE: cooperative and comfortable NUTRITIONAL APPEARANCE: obese morbidly obese ORIENTATION/CONSCIOUSNESS: Yes awake HENMT: COMMON NORMALS: normocephalic, atraumatic, hearing grossly normal bilaterally and moist oral mucous membranes HEAD & SCALP: normocephalic and atraumatic Eye: COMMON NORMALS: Equal, round and reactive pupils present, EOMs intact bilaterally and conjunctivae normal CONJUNCTIVA: Yes conjunctivae normal PUPIL: Yes Equal, round and reactive pupils present Neck/C-Spine: COMMON NORMALS: full ROM GENERAL: Yes normal visual inspection and Yes trachea midline Chest: CHEST: Yes Symmetrical chest wall rise Resp: COMMON NORMALS: normal respiratory effort, No retractions, No use of accessory muscles and clear to auscultation bilaterally EFFORT & INSPECTION: Yes able to speak in complete sentences, Yes symmetric chest movement and No tachypneic AUSCULTATION: clear to auscultation bilaterally Cardio: COMMON NORMALS: regular rate, regular rhythm, S1 normal heart sound present, S2 normal heart sound present and No murmurs present (Cardio) RATE: regular rate RHYTHM: regular rhythm HEART SOUNDS: S1 normal heart sound present and S2 normal heart sound present GI: COMMON NORMALS: Normal to inspection, nondistended, normoactive bowel sounds present, Soft to palpation and non-tender INSPECTION: Yes central obesity PALPATION: Yes Soft to palpation Extremity: COMMON NORMALS: normal to inspection, full ROM, no clubbing, cyano sis or edema and no pedal edema NARRATIVE EXTREMITY EXAM: -RLE: open wound on medial great toe with necrotic surface tissue, some bleeding, callused edges, no odor detected; significantly diminished sensation in bilateral LEs, Neuro: COMMON NORMALS: patient oriented x3, moves all extremities, no focal motor deficits and no sensory deficits noted SENSORIUM/ORIENTATION: Yes alert Psych: COMMON NORMALS: mental status grossly normal, Normal thought process present, cooperative, normal affect and speech normal SPEECH: Yes normal speech THOUGHT PROCESS: Normal thought process present Skin: COMMON NORMALS: no rashes or lesions noted, no jaundice, no petechiae and no mottling GENERAL SKIN EXAM: no rashes or lesions noted Data : 11/16/19 05:44 11/16/19 05:44 Micro: Microbiology 11/16/19 05:44 Blood Culture - Preliminary Blood SPECIMEN COLLECTED 11/16/19 05:40 Blood Culture - Preliminary Blood SPECIMEN COLLECTED A&P Assessment and plan (1) Cellulitis and abscess of foot: -Patient seen in wound care clinic on 11/13 and had debridement of left great toe diabetic foot infection. X-ray was done showing soft tissue edema, no osteomyelitis. Patient was prescribed Bactrim but due to increased swelling and purulent drainage presented to the ER with repeat imaging showing increased soft tissue edema -Elevated inflammatory markers, ESR of 75, CRP of 87.9, no leukocytosis -Surgery consult by Dr. Adrian cae, status post bedside wound debridement today -Follow-up on wound cultures from initial debridement -Follow-up on blood cultures -Continue dual IV antibiotic coverage with vancomycin and Zosyn -Afebrile, hemodynamically stable; continue to monitor vital signs -continue to follow up at wound care center Status: Acute (2) Type 2 diabetes mellitus with other specified complication: -A1c-6.7 -Accu-Cheks, ISS, hypoglycemia precautions -Consistent carb diet as tolerated -Has diabetes complicated by neuropathy and ED Status: Chronic Qualifiers: Diabetes mellitus group home insulin use: without group home use Qualified Code(s): E11.69 - Type 2 diabetes mellitus with other specified complication (3) Chronic idiopathic constipation: -bowel regimen Status: Chronic (4) Essential hypertension: -VSS; continue to monitor -continue oral antihypertensives Status: Chronic (5) Primary osteoarthritis of knees, bilateral: Status: Chronic Additional A&P Information -Morbid obesity: BMI-37 kg/m2 -DVT ppx with heparin -Dispo: home with HH -Code status: FULL code Attestations Medical Necessity Statement*: Patient requires hospitalization for continued treatment of left diabetic foot wound status post debridement, on IV antibiotics pending wound culture results. Time Spent in Patient Care: Greater than 35 minutes (>than 50% of time spent in counselling and/or direct pt care on unit) . Coding Level of Care Code Acute Tumbler Plater for [facility] Diagnoses Cellulitis and abscess of foot L03.119; L02.619 Type 2 diabetes mellitus with other specified complication E11.69 Diabetes mellitus long filler cigar roller machine insulin use: without group home use Chronic idiopathic constipation K59.04 Essential hypertension I10 Primary osteoarthritis of knees, bilateral M17.0
[2019-11-16 17:20] LABS: Glucose Point of Care 169 mg/dL (70-110)
[2019-11-16 21:17] LABS: Glucose Point of Care 182 mg/dL (70-110)
[2019-11-16] MEDS: atorvastatin 40 mg Tablet 20 MG PO (22:56)
[2019-11-17] VITALS: BP 134/64; PULSE 67; RESP 18; TEMP 37.2; O2SAT 98
[2019-11-17] MEDS: vancomycin 1,000 MG in sodium chloride 0.9% 250 ML 250 MG IV (02:00)
[2019-11-17] MEDS: heparin 5,000 unit/mL INJ 1 mL 5000 UNIT SUBCUT ×2 (02:00→11:13)
[2019-11-17 04:00] VITALS: BP 158/77; PULSE 64; RESP 18; TEMP 36.9; O2SAT 97
[2019-11-17 06:27] LABS: Glucose Point of Care 138 mg/dL (70-110)
[2019-11-17 07:34] VITALS: BP 171/80; PULSE 68; RESP 18; TEMP 36.4; O2SAT 95
[2019-11-17] MEDS: gabapentin 300 mg Capsule PO (08:20)
[2019-11-17] MEDS: aspirin 81 mg EC Tablet PO (08:20)
[2019-11-17] MEDS: piperacillin-tazobactam 3.375 GM in sodium chloride 0.9% (plus) 50 ML IV (08:20)
[2019-11-17] MEDS: sennosides-docusate Tablet 1 TAB PO (08:20)
[2019-11-17] MEDS: carvedilol 25 mg Tablet PO (08:20)
[2019-11-17] MEDS: allopurinol 300 mg Tablet PO (08:20)
--- NOTE | 2019-11-17 10:00 | PC.CHAP ---
Pastoral Care Encounter/Spiritual Assessment Type of Contact [] Declined business project analyst visit [] Patient/Family/Request visit [] Outpatient visit [] Follow-up visit [] Physician referral [] Code/Alert [x] Routine visit [] Staff referral [] Actively dying [] Patient sleeping [] Family support [] [] Out of room [] Palliative care [] [] Receiving care in room [] Pre-surgical visit [] Trauma [] Long length of stay [] ICU visit [] Other: Relational/Emotional Strength [] Patient feels connected with others/family/visitors/staff [] Distress [] Loneliness/isolation [] Abandonment Spirituality of Patient [] Person of Joan [] Attends Adventism of their Joan [] Believes in Prayer [] Reads Bible or Jainism materials [] There are Spiritual issues to be addressed Theatre Program Director Interventions [x] Prayer [] Active listening [] Non-anxious presence [] Spiritual/emotional support [] Crisis/trauma care [] Spiritual counseling [] Bereavement support [] Provided bereavement packet [] Provided Bible/devotional materials [] Provided toy/stuffed animal, coloring book to patient or family member [] Provided Communion [] Anointing/Dolomite [] Salvation [x] Completed spiritual assessment [] Other: Impact on Illness or Injury [] Angry [] Fearful [] Anxious [] Often cries [] Exhaustion [] Unable to work [] Unable to attend congregation [] Unable to walk/stand [] Unable to read [] Unable to drive [] Unable to eat/drink [] Unable to sleep [] Unable to be with family [] Patient intubated [] Other: Summary Patient a diabetic, knew to address foot issue quickly. Preparing to return home. Time spent with patient 10 min
--- NOTE | 2019-11-17 10:20 | P.DS_ITS ---
Discharge Providers Date of Admission: 11/16/19 00:49 Date of Discharge: November 17, 2019 Attending Provider at Admission: Edgardo Smith MD Attending Provider at Discharge: Maggie Bravo MD Primary Care Provider: KASSANDRA Corrales Diagnoses at Discharge Discharge Diagnosis (1) Cellulitis and abscess of foot: Status: Acute Problem details: -Patient seen in wound care clinic on 11/13 and had debridement of left great toe diabetic foot infection. X-ray was done showing soft tissue edema, no osteomyelitis. Patient was prescribed Bactrim but due to increased swelling and purulent drainage presented to the ER with repeat imaging showing increased soft tissue edema -Elevated inflammatory markers, ESR of 75, CRP of 87.9, no leukocytosis -Surgery consult by Dr. 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 Qualifiers: Diabetes mellitus [facility] insulin use: without buttermaker use Qualified Code(s): E11.69 - Type 2 diabetes mellitus with other specified complication (3) Chronic idiopathic constipation: Status: Chronic Problem details: -bowel regimen (4) Essential hypertension: Status: Chronic Problem details: -VSS; continue to monitor -continue oral antihypertensives (5) Primary osteoarthritis of knees, bilateral: Status: Chronic (6) Toe ulcer due to secondary DM: Status: Acute Other Information Additional DC diagnoses/information: -morbid obesity: BMI-37 kg/m2 Reason for Visit Reason for Visit: LEFT FOOT WOUND/DIABETIC Hospital Course Hospital Course: Patient was admitted to the medical surgical floor and started on broad-spectrum IV antibiotics secondary to left diabetic great toe ulcer. Due to concern for acute infection surgery was consulted and Dr. Campbell did a bedside debridement. Wound care was continued as specified which has consisted of wet-to-dry dressings and elevation of the left lower extremity. Blood sugars were closely monitored and patient was maintained on an insulin regimen. Blood cultures have been negative so far. He is fairly insistent on going home today so will be discharged on clindamycin to complete his treatment course with home health services requested to continue wound care. He has already been following up with Maye Ivy at the wound care clinic and is to continue to do this on discharge. He has been afebrile, with no leukocytosis, improved renal function during his hospital stay. He is to seek medical attention immediately should he have increased purulent drainage, fever/chills, increased pain or swelling. He will need to follow-up with his primary care provider within 1 week. Discharge Summary: -Patient to follow-up with primary care provider within 1 w [place] -Patient to follow-up at wound care clinic; continue wet-to-dry dressings Physical Exam Const: COMMON NORMALS: no acute distress, patient oriented x3 and alert GENERAL APPEARANCE: cooperative and comfortable NUTRITIONAL APPEARANCE: obese morbidly obese ORIENTATION/CONSCIOUSNESS: Yes awake HENMT: COMMON NORMALS: normocephalic, atraumatic, hearing grossly normal bilaterally and moist oral mucous membranes HEAD & SCALP: normocephalic and atraumatic Eye: COMMON NORMALS: Equal, round and reactive pupils present, EOMs intact bilaterally and conjunctivae normal CONJUNCTIVA: Yes conjunctivae normal PUPIL: Yes Equal, round and reactive pupils present Neck/C-Spine: COMMON NORMALS: full ROM GENERAL: Yes normal visual inspection and Yes trachea midline Chest: CHEST: Yes Symmetrical chest wall rise Resp: COMMON NORMALS: normal respiratory effort, No retractions, No use of accessory muscles and clear to auscultation bilaterally EFFORT & INSPECTION: Yes able to speak in complete sentences, Yes symmetric chest movement and No tachypneic AUSCULTATION: clear to auscultation bilaterally Cardio: COMMON NORMALS: regular rate, regular rhythm, S1 normal heart sound present, S2 normal heart sound present and No murmurs present (Cardio) RATE: regular rate RHYTHM: regular rhythm HEART SOUNDS: S1 normal heart sound present and S2 normal heart sound present GI: COMMON NORMALS: Normal to inspection, nondistended, normoactive bowel sounds present, Soft to palpation and non-tender INSPECTION: Yes central obesity PALPATION: Yes Soft to palpation Extremity: COMMON NORMALS: normal to inspection, full ROM, no clubbing, cya nosis or edema and no pedal edema NARRATIVE EXTREMITY EXAM: -RLE: open wound on medial great toe with good granulation tissue, some bleeding, callused edges, no odor detected; significantly diminished sensation in bilateral LEs, Neuro: COMMON NORMALS: patient oriented x3, moves all extremities, no focal motor deficits and no sensory deficits noted SENSORIUM/ORIENTATION: Yes alert Psych: COMMON NORMALS: mental status grossly normal, Normal thought process present, cooperative, normal affect and speech normal SPEECH: Yes normal speech THOUGHT PROCESS: Normal thought process present Skin: COMMON NORMALS: no rashes or lesions noted, no jaundice, no petechiae and no mottling GENERAL SKIN EXAM: no rashes or lesions noted Discharge Data Data Completed and Pending: Completed Studies During Hospitalization Category Date Time Status XR foot LT min 3V * 14222 Stat Exams 11/15/19 22:54 [place] [address] Routin e Ultrasound 11/16/19 01:52 Completed Pending at discharge Category Date Time Status Blood Culture Sta t Lab 11/16/19 05:44 Results Vancomycin Trough Timed Lab 11/17/19 10:00 Ordered Labs from last 24 hours 11/17/19 11/16/19 11/16/19 06:21 21:10 16:05 POC Glucose 138 182 169 11/16/19 11:18 POC Glucose 180 Vitals: Last Vital Signs Temp 97.5 F L 11/17/19 07:34 Pulse 68 11/17/19 07:34 Resp 18 11/17/19 07:34 BP 171/80 11/17/19 07:34 Pulse Ox 95 11/17/19 07:34 Discharge Plan Discharge Patient Disposition: Home Health Service Condition: Stable Prescriptions: New sennosides-docusate sodium 8.6-50 mg Tablet 1 tab PO BID 30 Days Qty: 60 RF: 0 clindamycin HCl 150 mg capsule 450 mg PO Q8H 10 Days Qty: 90 RF: 0 Continued sildenafil [Viagra] 100 mg tablet 50 - 100 mg PO QDAY PRN (Reason: erectile dysfunction) 30 Days Qty: 30 RF: 2 testosterone cypionate 200 mg/mL oil 200 mg IM .Q 2 WEEKS 30 Days Qty: 2 RF: 2 aspirin 81 mg tablet,delayed release (DR/EC) 81 mg PO QDAY RF: 0 meloxicam 15 mg tablet 15 mg PO QDAY RF: 0 Amitiza 8 mcg capsule 8 mcg PO BID 30 Days Qty: 60 RF: 2 gabapentin 800 mg tablet 800 mg PO TID Qty: 90 RF: 1 hydrocodone-acetaminophen 5-325 mg tablet 1 tab PO BID PRN (Reason: pain) 30 Days Qty: 60 RF: 0 clopidogrel [Plavix] 75 mg tablet 75 mg PO QDAY Qty: 30 RF: 5 hydrochlorothiazide 25 mg tablet 25 mg PO QDAY Qty: 30 RF: 5 carvedilol 25 mg tablet 25 mg PO BID Qty: 60 RF: 5 diclofenac sodium [Voltaren] 1 % gel 4 gm TOPICAL BID PRN (Reason: LEFT KNEE) Qty: 100 RF: 5 testosterone cypionate 200 mg/mL oil 200 mg IM .every 2 weeks 30 Days Qty: 2.5 RF: 2 potassium chloride 10 mEq tablet,ER particles/crystals 10 meq PO QDAY Qty: 30 RF: 5 allopurinol 300 mg tablet 300 mg PO QDAY Qty: 30 RF: 5 lisinopril 40 mg tablet 40 mg PO QDAY Qty: 30 RF: 5 ibuprofen 800 mg tablet 800 mg PO Q8H PRN (Reason: pain) Qty: 60 RF: 2 atorvastatin 20 mg tablet 20 mg PO .at bedtime Qty: 30 RF: 2 Januvia 100 mg tablet 100 mg PO QDAY Qty: 30 RF: 2 pioglitazone 15 mg tablet 15 mg PO QDAY Qty: 30 RF: 3 Jardiance 10 mg tablet 10 mg PO DAILY 30 Days Qty: 30 RF: 1 Discharge Orders: Discharge Order (Routine); Ordered 11/17/19 Ordered By: Maggie Bravo Referrals: JARED Arreola, PROCESS MOLD TECHNICIAN [Primary Care Provider] - 4-7 days (Post hospital discharge follow up. Treated for L diabetic foot ulcer, on Clindamycin, had debridement done. Follow up at [facility]) Maye Ivy [Emergency Department] - 4-7 days (Post hospital discharge follow up. Treated for L great toe diabetic ulcer, debrided by Dr. Campbell. On Clindamycin. ) Discharge Diet: Diabetic Activity Restrictions/Additional Instructions: -Keep your left leg elevated, and wear appropriate shoes to prevent swelling and allow proper wound healing -Home health services will be arranged to assist with wound care. Dressing changes should be done daily. Discharge Attestations Time Spent in Discharge Care*: greater than 30 min Specific Discharge Activities: Specific discharge activities: educating patient, discussing with disease case manager/social workers/dc planners, documenting/other paperwork and evaluating patient/reviewing data Status at Discharge: Cognitive status at discharge: cognitively intact , Behavioral status at discharge: cooperative , Functional status at discharge: independent ambulation Overall status at discharge: patient is progressing back to baseline Quality Metrics Clinical Quality Measures During this hospital stay, did patient experience: None Coding Level of Care Code Acute [employer] Architect for g Fwd Exam Comprehensive Diagnoses Cellulitis and abscess of foot L03.119; L02.619 Type 2 diabetes mellitus with other specified complication E11.69 Diabetes mellitus [facility] insulin use: without [facility] use Chronic idiopathic constipation K59.04 Essential hypertension I10 Primary osteoarthritis of knees, bilateral M17.0 Toe ulcer due to secondary DM E13.621; L97.509
[2019-11-17 11:44] VITALS: BP 179/83; PULSE 60; RESP 18; TEMP 36.7; O2SAT 96
[2019-11-17 11:51] VITALS: BP 179/83; PULSE 60; RESP 18; TEMP 36.7; O2SAT 96
[2019-11-17 12:06] LABS: Glucose Point of Care 200 mg/dL (70-110)
--- NOTE | 2019-11-17 16:22 | PM.PN ---
Subjective Subjective: Interval history: Patient feeling a lot better, no significant fevers or chills Vitals/I&O/Wt Last Vital Signs Temp 98.0 F 11/17/19 11:51 Pulse 60 11/17/19 11:51 Resp 18 11/17/19 11:51 BP 179/83 11/17/19 11:51 Pulse Ox 96 11/17/19 11:51 11/17/19 11/17/19 11/17/19 06:59 14:59 22:59 Intake Total 50 / 760.000 480 / 480 Output Total 400 / 900 Balance -350 / -140.000 480 / 480 Weight last 48 hrs Weight 275 lb Physical Exam Narrative: EXAM NARRATIVE: Left foot: Wound has good granulation tissue, erythema significantly improved, no purulent drainage noted Data : 11/16/19 05:44 11/16/19 05:44 Micro: Microbiology 11/16/19 05:44 Blood Culture - Preliminary Blood NEGATIVE TO DATE 11/16/19 05:40 Blood Culture - Preliminary Blood NEGATIVE TO DATE A&P Assessment and plan (1) Toe ulcer due to secondary DM: 69-year-old gentleman who is a diabetic and has developed a diabetic foot ulcer on the left great toe which requires IV antibiotics and surgical debridement. Wound looks good today, cellulitis improved DC home with follow-up in wound care Status: Acute Attestations Medical Necessity Statement*: Diabetic foot ulcer Coding Level of Care Code Acute [facility] Coordinator for [facility] Diagnoses Toe ulcer due to secondary DM E13.621; L97.509
== END 2019-11-17 12:55 | disposition home health service (06) | DRG 623 ==
LOC: ER 22:38 → MEDSURG 11-16 01:13
PROVIDERS: Emergency Medicine; Admitting Provider Internal Medicine; PCP Nurse Practitioner Family; Visit Provider Family Medicine
DX: E11.621 Type 2 diabetes mellitus with foot ulcer (principal); L02.612 Cutaneous abscess of left foot; L97.529 Non-pressure chronic ulcer of other part of left foot with unspecified severity; L03.032 Cellulitis of left toe; E11.40 Type 2 diabetes mellitus with diabetic neuropathy, unspecified; K59.04 Chronic idiopathic constipation; I10 Essential (primary) hypertension; M17.0 Bilateral primary osteoarthritis of knee; E66.01 Morbid (severe) obesity due to excess calories; Z68.37 Body mass index [BMI] 37.0-37.9, adult; Z79.82 Long term (current) use of aspirin; Z79.02 Long term (current) use of antithrombotics/antiplatelets; F17.220 Nicotine dependence, chewing tobacco, uncomplicated; M1A.9XX0 Chronic gout, unspecified, without tophus (tophi); E78.2 Mixed hyperlipidemia; Z85.828 Personal history of other malignant neoplasm of skin; E55.9 Vitamin D deficiency, unspecified
CPT/HCPCS: 11043; 12345; 36415; 36416; 73630; 80048; 80053; 82962; 83605; 85025; 85651; 86140; 87040; 87070; 87077; 87176; 87186; 87205; 93971; 96372; 99214; 99283; G0463; J1644; J1815; J2543; J3370; J7050

== ENCOUNTER 2019-11-20 10:20 | Outpatient (CLI) | payer MEDICARE, MEDICAID, SELFPAY | END 2019-11-20 10:21 | disposition home or self-care (01) | LOC: WOUND 10:24 | PROVIDERS: PCP Nurse Practitioner Family; Visit Provider Nurse Practitioner Family | DX: E11.621 Type 2 diabetes mellitus with foot ulcer (principal); L97.522 Non-pressure chronic ulcer of other part of left foot with fat layer exposed | CPT/HCPCS: 11042; A6446; L3260 ==

== ENCOUNTER 2019-11-24 09:16 | Outpatient (CLI) | payer MEDICARE, MEDICAID, SELFPAY ==
--- NOTE | 2019-11-24 09:22 | USCV_ITS ---
MayaAlen magdaleno Age: 69 Gender: M : 1950 Exam Date: 11/24/2019 09:42 Ordering Phys: Maye Ivy Technologist: Jose Estevez [place] [facility] [place]: HISTORY: Lower extremity swelling. PROCEDURES: Bilateral duplex Venous Insufficiency study of the Deep and Superficial systems was carried out according to normal protocol with the patient in supine positon for deep system and dependent position for the superficial system. FINDINGS: All deep veins demonstrated compressibility without evidence of intraluminal thrombus or increased echogenicity. Spectral analysis of Doppler signals demonstrates normal response to compression maneuvers indicating patency without obstruction. Reflux determinations were made with the patient in the dependent position, the weight being on the contralateral leg. Vein measurements and reflux times are listed below were applicable. No notable reflux was seen at this time. CONCLUSIONS No evidence of DVT in the above-mentioned identifiable veins. No significant venous reflux in the above-mentioned identifiable veins. The veins were of normal caliber The venous dimensions and the depth from the surface are as mentioned above Dr Francesco Ty MD [facility] (Electronically Signed) Final Date: 25 November 2019 08:56 S
== END 2019-11-24 09:17 | disposition home or self-care (01) ==
LOC: RAD 09:20
PROVIDERS: PCP Nurse Practitioner Family; Visit Provider Nurse Practitioner Family
DX: M79.605 Pain in left leg (principal); M79.604 Pain in right leg; L97.929 Non-pressure chronic ulcer of unspecified part of left lower leg with unspecified severity; L97.919 Non-pressure chronic ulcer of unspecified part of right lower leg with unspecified severity
CPT/HCPCS: 93970

== ENCOUNTER 2019-11-24 12:59 | Outpatient (CLI) | payer MEDICARE, MEDICAID, SELFPAY | END 2019-11-24 13:00 | disposition home or self-care (01) | LOC: WOUND 13:02 | PROVIDERS: PCP Nurse Practitioner Family; Visit Provider Nurse Practitioner Family | DX: E11.621 Type 2 diabetes mellitus with foot ulcer (principal); L97.524 Non-pressure chronic ulcer of other part of left foot with necrosis of bone; M79.605 Pain in left leg; M79.604 Pain in right leg; L97.929 Non-pressure chronic ulcer of unspecified part of left lower leg with unspecified severity; L97.919 Non-pressure chronic ulcer of unspecified part of right lower leg with unspecified severity | CPT/HCPCS: 11043; 93970; A6446 ==

== ENCOUNTER 2019-11-25 07:29 | Outpatient (CLI) | payer MEDICARE, MEDICAID, SELFPAY ==
--- NOTE | 2019-11-25 07:32 | USCV_ITS ---
Alen Maya Age: 69 Gender: M : 1950 Exam Date: 11/25/2019 07:34 Ordering Phys: Maye Ivy Technologist: Mumtaz Mcgill Exam Location: [facility] – [place] Indication: PAIN REDNESS NON HEALING ULCER RIGHT LEFT Brachial 96.00 mmHg Brachial 97.00 mmHg Pressure (mmHg) Waveform Pressure (mmHg) Waveform 134.00 Above Knee 128.00 135.00 Below Knee 128.00 144.00 FORENSIC SCIENCE TECHNICIAN 139.00 95.00 DPA 135.00 1.48 Ankle/Brachial Index 1.43 75.00 Pre-Exercise Toe Pressure 101.00 Pre-Exercise Toe/Brachial Index 1.04 0.77 FINDINGS Supernormal resting ABIs bilaterally Normal resting TBI's bilaterally Loss of dicrotic notch in the PVR waveforms CONCLUSIONS Features suggestive of extensive arterial sclerosis with no significant obstruction, based on the above findings Dr Francesco Ty MD [facility] (Electronically Signed) Final Date: 26 November 2019 10:01 S
== END 2019-11-25 07:30 | disposition home or self-care (01) ==
LOC: US 07:30
PROVIDERS: PCP Nurse Practitioner Family; Visit Provider Nurse Practitioner Family
DX: M79.605 Pain in left leg (principal); M79.604 Pain in right leg; L97.929 Non-pressure chronic ulcer of unspecified part of left lower leg with unspecified severity; L97.919 Non-pressure chronic ulcer of unspecified part of right lower leg with unspecified severity
CPT/HCPCS: 93923

== ENCOUNTER → 2019-11-28 11:31 | Outpatient (BNVA) | payer MEDICARE, MEDICAID, SELFPAY | PROVIDERS: PCP Nurse Practitioner Family; Visit Provider Nurse Practitioner Family | DX: E11.69 Type 2 diabetes mellitus with other specified complication (principal); M1A.9XX0 Chronic gout, unspecified, without tophus (tophi) | CPT/HCPCS: 36415; 80053; 81001; 85025 ==

== ENCOUNTER 2019-12-01 08:51 | Outpatient (CLI) | payer MEDICARE, MEDICAID, SELFPAY | END 2019-12-01 08:52 | disposition home or self-care (01) | LOC: WOUND 08:53 | PROVIDERS: PCP Nurse Practitioner Family; Visit Provider Nurse Practitioner Family | DX: E11.621 Type 2 diabetes mellitus with foot ulcer (principal); L97.524 Non-pressure chronic ulcer of other part of left foot with necrosis of bone | CPT/HCPCS: 99215; A6446; G0463 ==

== ENCOUNTER 2019-12-01 19:47 | Inpatient (IN) | payer MEDICARE, MEDICAID, SELFPAY ==
[2019-12-01 20:04] VITALS: BP 140/85; PULSE 85; RESP 20; TEMP 37.2; O2SAT 97; BMI 38.1
--- NOTE | 2019-12-01 20:18 | XR_ITS ---
WS: [id number] FOOT LEFT TECHNIQUE: 3 views of the left foot CLINICAL INFORMATION: diabetic foot ulcer COMPARISON: November 15, 2019 FINDINGS: Soft tissue defect overlying the first digit. Erosive changes in the underlying first distal phalanx and DIP. This extends into the distal first proximal phalanx meadially. Findings are compatible with osteomyelitis. This can be further evaluated MRI. Osteomyelitis and/or nondisplaced fracture involvin g the first proximal phalanx medially. Recommend correlation with trauma. Soft tissue edema. Osteopenia. Plantar calcaneal spurring. XR/XR foot LT min 3V* 10431 IMPRESSION: 1. Osteomyelitis in the first digit involving the first distal phalanx, DIP frieda int, and distal first proximal phalanx medially. This is new since November 14 0 2. In addition, Nondisplaced fracture and/or osteomyelitis involving the first proximal phalanx medially. This is new from previous. Correlation with history of trauma.
--- NOTE | 2019-12-01 20:21 | W.ED.FEVER ---
HPI - Fever General: Chief Complaint: Fever Stated Complaint: fever; infected toe; getting picc line tomorrow Time Seen by Provider: 12/01/19 20:06 History of Present Illness: HPI Narrative: This patient is a 69-year-old male who is a type II diabetic. He presents today with an infection in his left great toe. He has been followed by wound care and was seen there today. They wanted him to come to the hospital for IV antibiotics. He did not want to and so they made arrangements for him to get a PICC line placed but unfortunately will not be until tomorrow morning. He and his were instructed that if he developed fever or anything else he needed to come immediately to the ER. He did develop a low-grade fever tonight and his made him come in. He has been refusing to have the toe amputated although it is worsening according to the notes from the wound care clinic. He has been on Levaquin and said they started him on 2 new oral antibiotics today but he does not know what they were called and I do not see them in the chart. MD elicited complaint: fever Pertinent past history: diabetes Onset (ago): week(s) (2) Associated symptoms: Deny abdominal pain, flank pain, chills, chest pain, headache(s), nausea or vomiting Review of Systems General: Reports: 10 or more systems reviewed and unremarkable except in HPI and below and Other (Patient seems to downplay symptoms in general) Const: Denies: fever(s), chills, fatigue or malaise Eyes: Denies: change in vision ENMT: Denies: odynophagia Card: Denies: chest pain or swelling of feet/ankles Resp: Denies: dyspnea, productive cough or non-productive cough GI: Denies: abdominal pain, nausea or vomiting : Denies: flank pain Musc: Denies: neck pain or back pain Skin/Breast: Denies: rash Neuro: Denies: headache(s), numbness in extremities or weakness in extremities Chris/Lymph: Denies: easy bruising or easy bleeding PFS ED PFSH: Medical History Chewing tobacco use Chronic gout Chronic idiopathic constipation -bowel regimen DDD (degenerative disc disease) Diabetic neuropathy, painful Encounter for long-term opiate analgesic use Erectile disorder, lifelong, generalized, mild Essential hypertension Essential hypertension -VSS; continue to monitor -continue oral antihypertensives History of diabetic ulcer of foot Hypotestosteronemia Mixed hyperlipidemia Opioid contract exists Primary osteoarthritis of knees, bilateral Therapeutic opioid induced constipation 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 Taylor S/P routine circumcision Family History Other Heart disease Kidney disease Denies family history of Anesthesia complication Bleeding disorder Social History Smoking and tobacco status: former smoker Alcohol intake: current Alcohol intake frequency: other Alcohol type: beer Counseling given: Yes Type of alcohol counseling provided: other Other alcohol counseling details: DISCUSSED ALCOHOL USE PROHIBITED WITH PAIN MEDICATIONS Current occupational status: retired Physical Exam Const: COMMON NORMALS: no acute distress, patient oriented x3, no limitations and alert GENERAL APPEARANCE: cooperative and comfortable NUTRITIONAL APPEARANCE: obese HENMT: HEAD & SCALP: normal to inspection FACE & SINUS: normal facial exam Eye: GENERAL EYE: appearance normal, both eyes and all related structures Neck/C-Spine: COMMON NORMALS: supple, no meningeal signs and no JVD Chest: COMMONS NORMALS: normal inspection of the chest Resp: COMMON NORMALS: normal respiratory effort, No use of accessory muscles and clear to auscultation bilaterally AUSCULTATION: clear to auscultation bilaterally Cardio: COMMON NORMALS: no JVD, regular rate, regular rhythm and No murmurs present (Cardio) RATE: regular rate RHYTHM: regular rhythm GI: COMMON NORMALS: Normal to inspection, nondistended, normoactive bowel sounds present, Soft to palpation and non-tender INSPECTION: Yes normal to inspection AUSCULTATION: Yes normoactive bowel sounds PALPATION: Yes Soft to palpation Back/Pelvis: COMMON NORMALS: thoracic and lumbar spine normal to inspection Extremity: GENERAL: Yes normal exam except as noted LEFT LOWER EXTREMITY: Yes foot & digits OTHER: The left great toe has a large, deep, necrotic appearing ulceration on the medial aspect of the toe. The entire toe is red, very swollen, with yellow areas suggesting pus under the skin. The redness extends up into the medial portion of the forefoot. The entire left leg is edematous and warm up to the knee. Neuro: COMMON NORMALS: patient oriented x3, moves all extremities and no focal motor deficits SENSORIUM/ORIENTATION: Yes alert MENINGEAL SIGNS: Yes no meningeal signs Psych: COMMON NORMALS: mental status grossly normal, cooperative and normal affect Skin: COMMON NORMALS: no rashes or lesions noted and turgor normal GENERAL SKIN EXAM: no rashes or lesions noted and turgor normal Course ED course: This patient is very recalcitrant to coming to the hospital or to consider amputation of the toe. Looks like it has been advised several times and he has refused. The x-ray today shows significant osteomyelitis changes of the bone which are new since the x-ray from 3. I showed these to the patient and his and explained the significance of that. I am strongly encouraging him to consider amputation of the toe. He has an appointment with Dr. Panchal on and wants to wait until then. This is really worsened quickly over the past 2 weeks and I would much prefer that he did not wait that long. Although his white count is normal his sed rate is in the 80s. I am really encouraging him to come into the hospital for more timely treatment. His is asking about going to [place] for a second opinion and I have reassured her that this is something that we routinely manage here [place] [facility] but also informed her that they are of course, welcome to get a second opinion elsewhere. Reevaluation(s): Reevaluation #1: The patient agreed to stay in the hospital tonight. He will continue getting IV antibiotics and should have consultation regarding amputation of the toe in the morning. He still undecided but seems to understand my reasoning and why I am recommending that. Time: 22:22 Vital Signs: Vital signs: Vital Signs Temperature 98.4 F 12/01/19 22:49 Pulse Rate 68 12/01/19 22:49 Respiratory Rate 18 12/01/19 22:49 Blood Pressure 121/84 12/01/19 22:49 Pulse Oximetry 97 12/01/19 20:04 MDM - Fever Lab Data: Labs: Lab Results 12/01/19 12/01/19 12/01/19 Range/Units 20:40 20:40 20:40 WBC 6.7 (4.0-10.0) 10^3/ uL RBC 3.96 L (4.1-5.3) 10^6/u L Hgb 11.1 L (11.7-16.6) g/dL Hct 35.4 L (42.0-52.0) % MCV 89.4 (80-94) fL MCH 28.0 (28.0-34.0) pg MCHC 31.4 (30.0-36.0) g/dL RDW 15.0 (12.1-15.1) % Plt Count 147 (130-400) 10^3/c mm MPV 10.9 H (7.4-10.4) fL Neut % (Auto) 68.2 % Lymph % (Auto) 15.6 % Villalba % (Auto) 12.6 % Eos % (Auto) 3.0 % Baso % (Auto) 0.3 % Neut # (Auto) 4.6 (1.8-7.7) 10^3/u L Lymph # (Auto) 1.1 (0.8-4.8) 10^3/u L Villalba # (Auto) 0.9 (0.2-0.9) 10^3/u L Eos # (Auto) 0.2 (0.0-0.8) 10^3/u L Baso # (Auto) 0.0 (0.0-0.1) 10^3/u L Nucleated RBC % (a uto) 0 % Nucleated RBCs # 0.0 /100WBC ESR 81 H (0-10) mm/hr Sodium 136 (136-145) mmol/L Potassium 4.3 (3.5-5.1) mmol/L Chloride 99 (98-107) mmol/L Carbon Dioxide 23 (22-29) mmol/L Anion Gap 18.3 (5-19) BUN 32 H (8-23) mg/dL Creatinine 1.7 H (0.7-1.2) mg/dL GFR Calculation 40.2 L (90-130) mL/min Glucose 176 H (65-115) mg/dL Calculated Osmolal ity 284 L (285-295) mOsm/k g Lactate (0.5-2.2) mmol/L Calcium 9.4 (8.5-10.5) mg/dL Total Bilirubin 0.5 (0.15-1.2) mg/dL AST 18 (0-40) U/L ALT 17 (0-41) U/L Alkaline Phosphata se 76 (40-130) IU/L Total Protein 7.1 (6.6-8.7) g/dL Albumin 4.2 (3.5-5.2) g/dL Globulin 2.9 (1.3-4.6) g/dL 12/01/19 Range/Units 20:40 WBC (4.0-10.0) 10^3/ uL RBC (4.1-5.3) 10^6/u L Hgb (11.7-16.6) g/dL Hct (42.0-52.0) % MCV (80-94) fL MCH (28.0-34.0) pg MCHC (30.0-36.0) g/dL RDW (12.1-15.1) % Plt Count (130-400) 10^3/c mm MPV (7.4-10.4) fL Neut % (Auto) % Lymph % (Auto) % Villalba % (Auto) % Eos % (Auto) % Baso % (Auto) % Neut # (Auto) (1.8-7.7) 10^3/u L Lymph # (Auto) (0.8-4.8) 10^3/u L Villalba # (Auto) (0.2-0.9) 10^3/u L Eos # (Auto) (0.0-0.8) 10^3/u L Baso # (Auto) (0.0-0.1) 10^3/u L Nucleated RBC % (a uto) % Nucleated RBCs # /100WBC ESR (0-10) mm/hr Sodium (136-145) mmol/L Potassium (3.5-5.1) mmol/L Chloride (98-107) mmol/L Carbon Dioxide (22-29) mmol/L Anion Gap (5-19) BUN (8-23) mg/dL Creatinine (0.7-1.2) mg/dL GFR Calculation (90-130) mL/min Glucose (65-115) mg/dL Calculated Osmolal ity (285-295) mOsm/k g Lactate 1.0 (0.5-2.2) mmol/L Calcium (8.5-10.5) mg/dL Total Bilirubin (0.15-1.2) mg/dL AST (0-40) U/L ALT (0-41) U/L Alkaline Phosphata se (40-130) IU/L Total Protein (6.6-8.7) g/dL Albumin (3.5-5.2) g/dL Globulin (1.3-4.6) g/dL Discharge Plan Discharge Patient Disposition: Admitted As Inpatient Clinical Impression: Cellulitis and abscess of foot Type 2 diabetes mellitus with other specified complication Qualifiers: Diabetes mellitus ad terminal makeup operator insulin use: without ad terminal makeup operator use Qualified Code(s): E11.69 - Type 2 diabetes mellitus with other specified complication Osteomyelitis Qualifiers: Osteomyelitis type: other acute Osteomyelitis location: foot Laterality: left Qualified Code(s): M86.172 - Other acute osteomyelitis, left ankle and foot Condition: Stable Referrals: JARED Arreola, AGENCY OPERATOR [Primary Care Provider] - Coding Level of Care Code ED Flat Folding Machine Operator for g Fwd Exam Comprehensive
[2019-12-01 20:40] VITALS: BP 152/72; PULSE 80; RESP 16
[2019-12-01 20:50] LABS: Basophils % 0.3 %; Eosinophils # 0.2 10^3/uL (0.0-0.8); Hematocrit 35.4 % (42.0-52.0); Hemoglobin 11.1 g/dL (11.7-16.6); Lymphocytes # 1.1 10^3/uL (0.8-4.8); Lymphocytes % 15.6 %; Mean Corpuscular HGB Conc 31.4 g/dL (30.0-36.0); Mean Corpuscular Volume 89.4 fL (80-94); Mean Platelet Volume 10.9 fL (7.4-10.4); Monocytes # 0.9 10^3/uL (0.2-0.9); Monocytes % 12.6 %; Neutrophils # 4.6 10^3/uL (1.8-7.7); Neutrophils % 68.2 %; Nucleated Red Blood Cells % 0 %; Platelet Count 147 10^3/cmm (130-400); Red Blood Count 3.96 10^6/uL (4.1-5.3); White Blood Count 6.7 10^3/uL (4.0-10.0)
[2019-12-01 21:06] LABS: Alanine Aminotransferase 17 U/L (0-41); Albumin Level 4.2 g/dL (3.5-5.2); Alkaline Phosphatase 76 IU/L (40-130); Anion Gap 18.3 (5-19); Aspartate Amino Transferase 18 U/L (0-40); Blood Urea Nitrogen 32 mg/dL (8-23); Calcium 9.4 mg/dL (8.5-10.5); Carbon Dioxide 23 mmol/L (22-29); Chloride 99 mmol/L (98-107); Globulin 2.9 g/dL (1.3-4.6); Glomerular Filtration Rate 40.2 mL/min (90-130); Glucose 176 mg/dL (65-115); Osmolality Calculated 284 mOsm/kg (285-295); Potassium 4.3 mmol/L (3.5-5.1); Sodium 136 mmol/L (136-145); Total Bilirubin 0.5 mg/dL (0.15-1.2); Total Protein 7.1 g/dL (6.6-8.7)
[2019-12-01 21:34] LABS: Erythrocyte Sedimentation Rate 81 mm/hr (0-10)
[2019-12-01 22:49] VITALS: BP 121/84; PULSE 68; RESP 18; TEMP 36.9
--- NOTE | 2019-12-01 22:52 | P.HP_ITS ---
Providers/Chief Complaint Primary Care Provider: KASSANDRA Corrales Chief Complaint: fever; infected toe; getting picc line tomorrow History of Present Illness Alen Maya is a 69 year old male carries history of type 2 diabetes, diabetic left toe ulcer status post debridement by Dr. Atkinson initially, recent wound debridement on 11/[address] Campbell, he was discharged on clindamycin, at that point foot x-ray did not reveal osteomyelitis, his ESR was 75 and CRP 87, coming in today because of fever. Wound culture from previous debridement showed staph epidermidis, strep agalactiae and staph intermedius. He went to the wound care clinic, because of worsening of his wound amputation of left toe has been recommended, patient has been indecisive and currently is complacent with the use of antibiotics and avoiding amputation. Wound care clinic recommended PICC line placement and vancomycin. At home he spiked low grade temp 99.9 and decided to come to the hospital. His second wound culture grew MRSA, E. coli, strep and staph epidermidis, no bacteremia. At the time of my evaluation patient is not endorsing any chest pain, shortness of breath, nausea, vomiting, foot pain, diarrhea. He still is indecisive about surgical i ntervention. Normal hemodynamic, in the ER he was given vancomycin and Zosyn No signs of sepsis Foot x-ray showing concerning changes around lateral border of great toe for osteomyelitis with increased edema and loss of supporting soft tissue Review of Systems Const: Reports: fever(s) and chills; Denies: body aches or fatigue Eyes: Denies: change in vision ENMT: Denies: throat pain Card: Denies: chest pain Resp: Denies: dyspnea GI: Denies: abdominal pain : Denies: flank pain Musc: Reports: joint swelling, joint redness, joint warmth and joint stiffness; Denies: neck pain, extremity pain or joint pain Skin/Breast: Reports: erythema, changing lesions, non-healing lesions and lesions; Denies: rash or skin tenderness Neuro: Denies: headache(s) Psych: Denies: anxiety Endo: Denies: polyuria Chris/Lymph: Denies: easy bruising All/Imm: Denies: urticaria Medications/Allergies Home Medications Medication Instructions Recorded Confirmed Last Taken Type clopidogrel 75 mg tablet 75 mg PO QDAY #30 tab 06/23/19 12/01/19 12/01/19 Rx aspirin 81 mg tablet,delayed 81 mg PO QDAY 06/24/19 12/01/19 12/01/19 History release sildenafil 100 mg tablet 50 - 100 mg PO QDAY PRN 30 Days 07/11/19 12/01/19 11/15/19 Rx #30 tab carvedilol 25 mg tablet 25 mg PO BID #60 tab 07/22/19 12/01/19 12/01/19 Rx diclofenac sodium 1 % topical gel 4 gm TOPICAL BID PRN #100 gm 07/22/19 12/01/19 12/01/19 Rx hydrochlorothiazide 25 mg tablet 25 mg PO QDAY #30 tab 07/22/19 12/01/19 12/01/19 Rx allopurinol 300 mg tablet 300 mg PO QDAY #30 tab 08/19/19 12/01/19 12/01/19 Rx lisinopril 40 mg tablet 40 mg PO QDAY #30 tab 08/19/19 12/01/19 12/01/19 Rx potassium chloride 10 mEq 10 meq PO QDAY #30 tab 08/19/19 12/01/19 12/01/19 Rx tablet,extended release(part/cryst) ibuprofen 800 mg tablet 800 mg PO Q8H PRN #60 tab 09/17/19 12/01/19 11/15/19 Rx gabapentin 800 mg tablet 800 mg PO TID #90 tab 10/08/19 12/01/19 12/01/19 Rx hydrocodone 5 mg-acetaminophen 325 1 tab PO BID PRN 30 Days #60 tab 10/08/19 12/01/19 11/29/19 Rx mg tablet lubiprostone 8 mcg capsule 8 mcg PO BID 30 Days #60 cap 10/09/19 12/01/19 11/15/19 Rx atorvastatin 20 mg tablet 20 mg PO .at bedtime #30 tab 10/14/19 12/01/19 11/30/19 Rx sitagliptin 100 mg tablet 100 mg PO QDAY #30 tab 10/14/19 12/01/19 12/01/19 Rx empagliflozin 10 mg tablet 10 mg PO DAILY 30 Days #30 tab 11/07/19 12/01/19 12/01/19 Rx pioglitazone 15 mg tablet 15 mg PO QDAY #30 tab 11/07/19 12/01/19 11/15/19 Rx testosterone cypionate 200 mg/mL 200 mg IM .Q 2 WEEKS 30 Days #2 ml 11/09/19 12/01/19 11/28/19 Rx intramuscular oil meloxicam 15 mg tablet 15 mg PO QDAY 90 Days #90 tab 11/28/19 12/01/19 Unknown Rx levofloxacin See Rx Instructions .ROUTE .COMPLEX 12/01/19 12/01/19 12/01/19 History linezolid 600 mg PO Q12H 12/01/19 12/01/19 12/01/19 History multivitamin [Multiple Vitamins] 1 tab PO DAILY 12/01/19 12/01/19 12/01/19 History Allergies Allergy/AdvReac Type Severity Reaction Status Date / Time pregabalin [From Lyrica] Allergy swelling Verified 12/01/19 21:57 in lower extremeties PFSH Acute PFSH: Medical History (Updated 12/02/19 @ 00:41 by Edgardo Smith MD) Chewing tobacco use Chronic gout Chronic idiopathic constipation -bowel regimen DDD (degenerative disc disease) Diabetic neuropathy, painful Encounter for long-term opiate analgesic use Erectile disorder, lifelong, generalized, mild Essential hypertension Essential hypertension -VSS; continue to monitor -continue oral antihypertensives History of diabetic ulcer of foot Hypotestosteronemia Mixed hyperlipidemia Opioid contract exists Primary osteoarthritis of knees, bilateral Therapeutic opioid induced constipation 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 Taylor S/P routine circumcision Family History Other Heart disease Kidney disease Denies family history of Anesthesia complication Bleeding disorder Social History Smoking and tobacco status: former smoker Alcohol intake: current Alcohol intake frequency: other Alcohol type: beer Counseling given: Yes Type of alcohol counseling provided: other Other alcohol counseling details: DISCUSSED ALCOHOL USE PROHIBITED WITH PAIN MEDICATIONS Current occupational status: retired Vitals/I&O/Wt Last Vital Signs Temp 98.4 F 12/01/19 22:49 Pulse 68 12/01/19 22:49 Resp 18 12/01/19 22:49 BP 121/84 12/01/19 22:49 Pulse Ox 97 12/01/19 20:04 Weight last 48 hrs Weight 127.459 kg Physical Exam Narrative: EXAM NARRATIVE: Head to toe examination Morbidly obese male Sitting comfortably in his bed without any active discomfort Hemodynamically stable Abdomen soft, distended, multiple petechia abdominal wall at heparin injection site S1, S2 no signs of tachycardia or heart failure Lungs are clear to auscultation Neurological nonfocal exam His left great toe has 4 x 5 cm , 2 to 3 cm deep nonhealing draining ulcer, visible soft tissue at the base, serosanguineous discharge, epithelialized bor ne No pain around ulcer area, fat layer exposed, medium amount of purulent drainage mixed with blood EOMI, PERRLA Appropriate mood and affect Data : 12/01/19 20:40 12/01/19 20:40 A&P Assessment and plan (1) Osteomyelitis: Status: Acute Qualifiers: Laterality: left Osteomyelitis location: foot Osteomyelitis type: other acute Qualified Code(s): M86.172 - Other acute osteomyelitis, left ankle and foot (2) Type 2 diabetes mellitus with other specified complication: Status: Acute Qualifiers: Diabetes mellitus long term acute care registered nurse insulin use: without long term acute care registered nurse use Qualified Code(s): E11.69 - Type 2 diabetes mellitus with other specified complication (3) Toe ulcer due to secondary DM: Status: Acute (4) Diabetic foot ulcer: Status: Acute Additional A&P Information Left great toe diabetic foot ulcer worsening Concern for osteomyelitis No bacteremia on previous hospitalization, Wound culture grew MRSA and E. coli Would continue vancomycin and Zosyn for now Patient is indecisive about surgical intervention He would like to take some time overnight to think about it I would make him n.p.o. after midnight, keep him on vancomycin and Zosyn Patient would like to talk with Dr. Panchal in the morning, He will need PICC line placement in the morning as well No active signs of sepsis N.p.o. after midnight, latest A1c 6.7 We will keep him on sliding scale to avoid hypoglycemia Essential hypertension: Continue antihypertensives Opioid-induced constipation: Senna S and MiraLAX Chronic kidney disease, creatinine seems to be around new baseline Full code N.p.o. after midnight DVT prophylaxis: Would avoid in case he would go for surgical intervention, Doppler studies did not reveal any arterial obstruction, I would use SCDs Attestations Medical Necessity Statement*: Anticipating stay in the hospital cross more than 2 midnights currently need IV antibiotics for osteomyelitis, patient is indecisive about surgical intervention, I would keep him prepared for surgery in case he changes his mind Time Spent in Patient Care: 40mins Coding Level of Care Code Acute Tread Cutter for g Fwd Diagnoses Osteomyelitis M86.172 Laterality: left Osteomyelitis location: foot Osteomyelitis type: other acute Type 2 diabetes mellitus with other specified complication E11.69 Diabetes mellitus nursing home insulin use: without long term acute care registered nurse use Toe ulcer due to secondary DM E13.621; L97.509 Diabetic foot ulcer E11.621; L97.509
[2019-12-01] MEDS: piperacillin-tazobactam 3.375 GM in sodium chloride 0.9% (plus) 50 ML IV (23:25)
[2019-12-01 23:56] VITALS: BP 171/82; PULSE 75; RESP 20; TEMP 37.1; O2SAT 97
[2019-12-02 04:00] VITALS: BP 134/70; PULSE 75; RESP 18; TEMP 37; O2SAT 97
[2019-12-02 04:01] LABS: Basophils % 0.3 %; Eosinophils # 0.2 10^3/uL (0.0-0.8); Eosinophils % 3.7 %; Hematocrit 34.5 % (42.0-52.0); Hemoglobin 11.1 g/dL (11.7-16.6); Lymphocytes # 1.2 10^3/uL (0.8-4.8); Lymphocytes % 18.7 %; Mean Corpuscular HGB Conc 32.2 g/dL (30.0-36.0); Mean Corpuscular Hemoglobin 28.1 pg (28.0-34.0); Mean Corpuscular Volume 87.3 fL (80-94); Mean Platelet Volume 10.7 fL (7.4-10.4); Monocytes # 0.7 10^3/uL (0.2-0.9); Monocytes % 11.4 %; Neutrophils % 65.4 %; Nucleated Red Blood Cells % 0 %; Platelet Count 159 10^3/cmm (130-400); Red Blood Count 3.95 10^6/uL (4.1-5.3); Red Cell Distribution Width 14.8 % (12.1-15.1); White Blood Count 6.2 10^3/uL (4.0-10.0)
[2019-12-02 04:27] LABS: Anion Gap 19.2 (5-19); Blood Urea Nitrogen 27 mg/dL (8-23); Calcium 9.3 mg/dL (8.5-10.5); Carbon Dioxide 22 mmol/L (22-29); Chloride 99 mmol/L (98-107); Glomerular Filtration Rate 46.4 mL/min (90-130); Glucose 158 mg/dL (65-115); Osmolality Calculated 282 mOsm/kg (285-295); Potassium 4.2 mmol/L (3.5-5.1); Sodium 136 mmol/L (136-145)
[2019-12-02 06:12] LABS: Glucose Point of Care 152 mg/dL (70-110)
[2019-12-02] MEDS: piperacillin-tazobactam 3.375 GM in sodium chloride 0.9% (plus) 50 ML IV ×2 (07:29→16:01)
[2019-12-02 08:00] VITALS: BP 144/74; PULSE 74; RESP 12; TEMP 36.8; O2SAT 97
[2019-12-02] MEDS: aspirin 81 mg EC Tablet PO (10:32)
[2019-12-02] MEDS: gabapentin 400 mg Capsule 800 MG PO ×3 (10:32→21:19)
[2019-12-02] MEDS: carvedilol 25 mg Tablet PO ×2 (10:32→17:07)
[2019-12-02] MEDS: allopurinol 300 mg Tablet PO (10:32)
[2019-12-02 11:05] LABS: Glucose Point of Care 166 mg/dL (70-110)
--- NOTE | 2019-12-02 11:47 | XR_ITS ---
WS: [id number] PORTABLE CHEST HISTORY: Post PICC placement COMPARISON: 05/21/2019 Right-sided PICC line with tip in distal SVC. No complications. Marked lordotic projection of the thorax causing distortion of the soft tissue structures. No osseous abnormality seen. XR/XR chest 1V portable [id number] IMPRESSION: Uncomplicated right-sided PICC line with tip ending in the distal SVC.
[2019-12-02 12:00] VITALS: BP 151/73; PULSE 73; RESP 16; TEMP 36.9; O2SAT 95
--- NOTE | 2019-12-02 14:40 | P.PN_ITS ---
Subjective Subjective: Interval history: Admitted overnight. H&P and labs noted. Evaluation patient is lying comfortably in bed. Has had a PICC line placed. Patient was n.p.o. in the morning and was started diet later. Patient states he would like to go home. Had a big discussion with the patient regarding need of a possible surgical evaluation for bone biopsy for culture. Patient states he would like to avoid amputation at any cost and is willing to stay in hospital if needed for bone biopsy. Patient denies of any nausea, vomiting, headache, dizziness. Vitals/I&O/Wt Last Vital Signs Temp 98.4 F 12/02/19 12:00 Pulse 73 12/02/19 12:00 Resp 16 12/02/19 12:00 BP 151/73 12/02/19 12:00 Pulse Ox 95 12/02/19 12:00 12/01/19 12/02/19 12/02/19 22:59 06:59 14:59 Intake Total 400 / 400 Output Total 410 / 410 450 / 450 Balance -10 / -10 -450 / -450 Weight last 48 hrs Weight 127.459 kg Physical Exam Narrative: EXAM NARRATIVE: General: Morbidly obese male Sitting comfortably in his bed without any active discomfort Abdomen: Soft, distended, multiple petechia abdominal wall at heparin injection site Cardiac: S1, S2 regular, no murmurs no gallops, no tachycardia, JVD normal Lungs: Normal vesicular breath sounds, no added sounds Neurological nonfocal exam Extremities: His left great toe has 4 x 5 cm , 2 to 3 cm deep nonhealing draining ulcer, visible soft tissue at the base, serosanguineous discharge, epithelialized border No pain around ulcer area, fat layer exposed, medium amount of purulent drainage mixed with blood EOMI, PERRLA Appropriate mood and affect Data : 12/02/19 03:45 12/02/19 03:45 A&P Assessment and plan (1) Osteomyelitis: Status: Acute Qualifiers: Laterality: left Osteomyelitis location: foot Osteomyelitis type: other acute Qualified Code(s): M86.172 - Other acute osteomyelitis, left ankle and foot (2) Type 2 diabetes mellitus with other specified complication: Status: Acute Qualifiers: Diabetes mellitus dedicated intermodal truck driver insulin use: without dedicated intermodal truck driver use Qualified Code(s): E11.69 - Type 2 diabetes mellitus with other specified complication (3) Toe ulcer due to secondary DM: Status: Acute (4) Diabetic foot ulcer: Status: Acute Additional A&P Information Left great toe osteomyelitis: No active signs of sepsis. Continue with vancomycin and Zosyn. Wound culture in the past were growing MSSA, coag negative staph susceptible to vancomycin, high growth of providentia, E. coli. Blood cultures sent. Given multiple organisms in the past patient most likely need a bone biopsy/bone culture for culture directed antibiotics. Patient states he would like to avoid amputation. Most likely patient needs pro longed IV antibiotics of at least 6 weeks. Patient was seen by Dr. Campbell in the past. Dr. Campbell has been consulted will see patient tomorrow. We will keep patient n.p.o. empirically for a possible procedure tomorrow morning. Type 2 diabetes mellitus: Stop oral hypoglycemics. Insulin sliding scale before meals and at bedtime at moderate sliding scale. Essential hypertension: Blood pressure well controlled. Continue home dose of carvedilol, lisinopril. Continue chronic medication like aspirin and statin. Hold Plavix for possible procedure tomorrow. Full code N.p.o. after midnight DVT prophylaxis: Would avoid in case he would go for surgical intervention, Doppler studies did not reveal any arterial obstruction, I would use SCDs Attestations Medical Necessity Statement*: Osteomyelitis Time Spent in Patient Care: Greater than 35 minutes (>than 50% of time spent in counselling and/or direct pt care on unit) . Coding Level of Care Code Acute Health Evaluator for [facility] Diagnoses Osteomyelitis M86.172 Laterality: left Osteomyelitis location: foot Osteomyelitis type: other acute Type 2 diabetes mellitus with other specified complication E11.69 Diabetes mellitus dedicated intermodal truck driver insulin use: without dedicated intermodal truck driver use Toe ulcer due to secondary DM E13.621; L97.509 Diabetic foot ulcer E11.621; L97.509
[2019-12-02 16:00] VITALS: BP 152/79; PULSE 73; RESP 16; TEMP 37.1; O2SAT 97
[2019-12-02 17:04] LABS: Glucose Point of Care 194 mg/dL (70-110)
[2019-12-02 20:00] VITALS: BP 124/53; PULSE 75; RESP 18; TEMP 36.7; O2SAT 96
[2019-12-02 20:27] LABS: Glucose Point of Care 216 mg/dL (70-110)
[2019-12-02] MEDS: atorvastatin 40 mg Tablet 20 MG PO (21:20)
[2019-12-03] VITALS: BP 116/55; PULSE 73; RESP 18; TEMP 36.9; O2SAT 97
[2019-12-03] MEDS: piperacillin-tazobactam 3.375 GM in sodium chloride 0.9% (plus) 50 ML IV ×2 (01:03→07:31)
[2019-12-03 03:05] LABS: Basophils % 0.4 %; Eosinophils # 0.2 10^3/uL (0.0-0.8); Eosinophils % 3.7 %; Hematocrit 31.5 % (42.0-52.0); Hemoglobin 10.1 g/dL (11.7-16.6); Lymphocytes % 20.7 %; Mean Corpuscular HGB Conc 32.1 g/dL (30.0-36.0); Mean Corpuscular Hemoglobin 28.7 pg (28.0-34.0); Mean Corpuscular Volume 89.5 fL (80-94); Mean Platelet Volume 10.5 fL (7.4-10.4); Monocytes # 0.6 10^3/uL (0.2-0.9); Monocytes % 11.7 %; Neutrophils # 3.1 10^3/uL (1.8-7.7); Neutrophils % 63.3 %; Nucleated Red Blood Cells % 0 %; Platelet Count 141 10^3/cmm (130-400); Red Blood Count 3.52 10^6/uL (4.1-5.3); Red Cell Distribution Width 14.9 % (12.1-15.1); White Blood Count 4.9 10^3/uL (4.0-10.0)
[2019-12-03 03:20] LABS: Alanine Aminotransferase 19 U/L (0-41); Albumin Level 3.5 g/dL (3.5-5.2); Alkaline Phosphatase 69 IU/L (40-130); Anion Gap 17.1 (5-19); Aspartate Amino Transferase 23 U/L (0-40); Blood Urea Nitrogen 20 mg/dL (8-23); Calcium 9.1 mg/dL (8.5-10.5); Carbon Dioxide 24 mmol/L (22-29); Chloride 101 mmol/L (98-107); Globulin 2.8 g/dL (1.3-4.6); Glomerular Filtration Rate 50.2 mL/min (90-130); Glucose 154 mg/dL (65-115); Osmolality Calculated 286 mOsm/kg (285-295); Potassium 4.1 mmol/L (3.5-5.1); Sodium 138 mmol/L (136-145); Total Bilirubin 0.4 mg/dL (0.15-1.2); Total Protein 6.3 g/dL (6.6-8.7)
[2019-12-03 03:55] VITALS: BP 145/70; PULSE 72; RESP 19; TEMP 36.9; O2SAT 97
[2019-12-03 05:51] VITALS: RESP 17
[2019-12-03 06:29] LABS: Glucose Point of Care 154 mg/dL (70-110)
[2019-12-03 08:00] VITALS: BP 140/54; PULSE 71; RESP 18; TEMP 36.9; O2SAT 94
[2019-12-03] MEDS: aspirin 81 mg EC Tablet PO (08:32)
[2019-12-03] MEDS: gabapentin 400 mg Capsule 800 MG PO (08:33)
[2019-12-03] MEDS: carvedilol 25 mg Tablet PO (08:33)
[2019-12-03] MEDS: lisinopril 20 mg Tablet 40 MG PO (08:33)
[2019-12-03] MEDS: allopurinol 300 mg Tablet PO (08:33)
[2019-12-03 10:59] LABS: Glucose Point of Care 146 mg/dL (70-110)
--- NOTE | 2019-12-03 11:01 | PM.DCS ---
Discharge Providers Date of Admission: 12/01/19 22:53 Date of Discharge: December 03, 2019 Attending Provider at Admission: Edgardo Smith MD Attending Provider at Discharge: Darren Fernandez MD Consults: Surgery: Dr. Campbell Primary Care Provider: KASSANDRA Corrales Diagnoses at Discharge Discharge Diagnosis (1) Osteomyelitis: Status: Acute Qualifiers: Laterality: left Osteomyelitis location: foot Osteomyelitis type: other acute Qualified Code(s): M86.172 - Other acute osteomyelitis, left ankle and foot (2) Type 2 diabetes mellitus with other specified complication: Status: Acute Problem details: -A1c-6.7 -Complicated with erectile dysfunction and neuropathy Qualifiers: Diabetes mellitus retirement insulin use: without intermediate designer use Qualified Code(s): E11.69 - Type 2 diabetes mellitus with other specified complication (3) Toe ulcer due to secondary DM: Status: Acute (4) Diabetic foot ulcer: Status: Acute Reason for Visit Reason for Visit: fever; infected toe; getting picc line tomorrow Hospital Course Discharge Summary: Alen Maya is a 69 year old male carries history of type 2 diabetes, diabetic left toe ulcer status post debridement by Dr. Atkinson initially, recent wound debridement on 11/[address] Campbell, he was discharged on clindamycin, at that point foot x-ray did not reveal osteomyelitis, his ESR was 75 and CRP 87, coming in today because of fever. Wound culture from previous debridement showed staph epidermidis, strep agalactiae and staph intermedius. He went to the wound care clinic, because of worsening of his wound amputation of left toe has been recommended, patient has been indecisive and currently is complacent with the use of antibiotics and avoiding amputation. Wound care clinic recommended PICC line placement and vancomycin. At home he spiked low grade temp 99.9 and decided to come to the hospital. His wound culture from November 13 grew MSSA staph, strep, E. coli, staph epidermidis. Foot x-ray was consistent with osteomyelitis of first digit involving the fourth distal phalanx, DIP, distal fourth proximal phalanx medially. Because of the finding surgery was consulted and bone biopsy was done for bone cultures as patient's wound culture in the past had grown multiple bacteria. Given extensive osteomyelitis of the bone in the digit patient was advised that is quite possible that even after antibiotics he might end up needing amputation. Patient states he is still trying to make up his mind regarding that. As per the culture results patient is being discharged on ceftriaxone 2 g IV daily along with levofloxacin 750 mg every other day as per his renal functions. Patient is to follow-up with wound care clinic as an outpatient very we will also follow-up the culture results of the bone biopsy and the antibiotics will be changed accordingly. CBC and CMP is supposed to be done weekly and supposed to be followed up with his primary care provider and providers at wound care clinic. Patient was counseled and educated about the above and he verbalized understanding. He is been discharged in hemodynamic stable condition. Physical Exam Narrative: EXAM NARRATIVE: General: Morbidly obese male Sitting comfortably in his bed without any active discomfort Abdomen: Soft, distended, multiple petechia abdominal wall at heparin injection site Cardiac: S1, S2 regular, no murmurs no gallops, no tachycardia, JVD normal Lungs: Normal vesicular breath sounds, no added sounds Neurological nonfocal exam Extremities: Left foot great toe surgically dressed, dressing no drainage or foul smell present. No pain around ulcer area, fat layer exposed, medium amount of purulent drainage mixed with blood EOMI, PERRLA Appropriate mood and affect Discharge Data Data Completed and Pending: Completed Studies During Hospitalization Category Date Time Status CXRP [XR chest 1V portable [id number]] R outine Exams 12/02/19 11:47 Completed XR foot LT min 3V * [id number] Stat Exams 12/01/19 20:18 Completed Pending at discharge Category Date Time Status Anaerobic Culture Stat Lab 12/03/19 10:53 Uncollected Tissue Culture an d Gram Stain Stat Lab 12/03/19 10:53 Uncollected Vancomycin Trough Timed Lab 12/03/19 21:00 Ordered Pathology: Surgic al [PTH] Routine Pth 12/03/19 09:03 Ordered Labs from last 24 hours 12/03/19 12/03/19 12/03/19 10:46 06:17 02:40 WBC RBC Hgb Hct MCV MCH MCHC RDW Plt Count MPV Neut % (Auto) Lymph % (Auto) [place] % (Auto) Eos % (Auto) Baso % (Auto) Neut # (Auto) Lymph # (Auto) [place] # (Auto) Eos # (Auto) Baso # (Auto) Nucleated RBC % (a uto) Nucleated RBCs # Sodium 138 Potassium 4.1 Chloride 101 Carbon Dioxide 24 Anion Gap 17.1 BUN 20 Creatinine 1.4 H GFR Calculation 50.2 L Glucose 154 H POC Glucose 146 154 Calculated Osmolal ity 286 Calcium 9.1 Total Bilirubin 0.4 AST 23 ALT 19 Alkaline Phosphata se 69 Total Protein 6.3 L Albumin 3.5 Globulin 2.8 12/03/19 12/02/19 12/02/19 02:40 20:15 16:59 WBC 4.9 RBC 3.52 L Hgb 10.1 L Hct 31.5 L MCV 89.5 MCH 28.7 MCHC 32.1 RDW 14.9 Plt Count 141 MPV 10.5 H Neut % (Auto) 63.3 Lymph % (Auto) 20.7 [place] % (Auto) 11.7 Eos % (Auto) 3.7 Baso % (Auto) 0.4 Neut # (Auto) 3.1 Lymph # (Auto) 1.0 [place] # (Auto) 0.6 Eos # (Auto) 0.2 Baso # (Auto) 0.0 Nucleated RBC % (a uto) 0 Nucleated RBCs # 0.0 Sodium Potassium Chloride Carbon Dioxide Anion Gap BUN Creatinine GFR Calculation Glucose POC Glucose 216 194 Calculated Osmolal ity Calcium Total Bilirubin AST ALT Alkaline Phosphata se Total Protein Albumin Globulin 12/02/19 11:00 WBC RBC Hgb Hct MCV MCH MCHC RDW Plt Count MPV Neut % (Auto) Lymph % (Auto) [place] % (Auto) Eos % (Auto) Baso % (Auto) Neut # (Auto) Lymph # (Auto) [place] # (Auto) Eos # (Auto) Baso # (Auto) Nucleated RBC % (a uto) Nucleated RBCs # Sodium Potassium Chloride Carbon Dioxide Anion Gap BUN Creatinine GFR Calculation Glucose POC Glucose 166 Calculated Osmolal ity Calcium Total Bilirubin AST ALT Alkaline Phosphata se Total Protein Albumin Globulin Vitals: Last Vital Signs Temp 98.4 F 12/03/19 08:00 Pulse 71 12/03/19 08:00 Resp 18 12/03/19 08:00 BP 140/54 12/03/19 08:00 Pulse Ox 94 12/03/19 08:00 Discharge Plan Discharge Patient Disposition: Home Health Service Condition: Stable Prescriptions: New ceftriaxone 2 gram recon soln 2 gm IV Q24H Qty: 42 RF: 0 levofloxacin 750 mg tablet 750 mg PO Q48H 42 Days Qty: 21 RF: 0 Continued sildenafil [Viagra] 100 mg tablet 50 - 100 mg PO QDAY PRN (Reason: erectile dysfunction) 30 Days Qty: 30 RF: 2 testosterone cypionate 200 mg/mL oil 200 mg IM .Q 2 WEEKS 30 Days Qty: 2 RF: 2 meloxicam 15 mg tablet 15 mg PO QDAY 90 Days Qty: 90 RF: 1 aspirin 81 mg tablet,delayed release (DR/EC) 81 mg PO QDAY RF: 0 Amitiza 8 mcg capsule 8 mcg PO BID 30 Days Qty: 60 RF: 2 gabapentin 800 mg tablet 800 mg PO TID Qty: 90 RF: 1 hydrocodone-acetaminophen 5-325 mg tablet 1 tab PO BID PRN (Reason: pain) 30 Days Qty: 60 RF: 0 clopidogrel [Plavix] 75 mg tablet 75 mg PO QDAY Qty: 30 RF: 5 hydrochlorothiazide 25 mg tablet 25 mg PO QDAY Qty: 30 RF: 5 carvedilol 25 mg tablet 25 mg PO BID Qty: 60 RF: 5 diclofenac sodium [Voltaren] 1 % gel 4 gm TOPICAL BID PRN (Reason: LEFT KNEE) Qty: 100 RF: 5 potassium chloride 10 mEq tablet,ER particles/crystals 10 meq PO QDAY Qty: 30 RF: 5 allopurinol 300 mg tablet 300 mg PO QDAY Qty: 30 RF: 5 lisinopril 40 mg tablet 40 mg PO QDAY Qty: 30 RF: 5 ibuprofen 800 mg tablet 800 mg PO Q8H PRN (Reason: pain) Qty: 60 RF: 2 atorvastatin 20 mg tablet 20 mg PO .at bedtime Qty: 30 RF: 2 Januvia 100 mg tablet 100 mg PO QDAY Qty: 30 RF: 2 pioglitazone 15 mg tablet 15 mg PO QDAY Qty: 30 RF: 3 Jardiance 10 mg tablet 10 mg PO DAILY 30 Days Qty: 30 RF: 1 Multiple Vitamins Tablet 1 tab PO DAILY RF: 0 Discontinued linezolid 600 mg Tablet 600 mg PO Q12H RF: 0 levofloxacin 750 mg tablet See Rx Instructions .ROUTE .COMPLEX RF: 0 Discharge Orders: Discharge Order (Routine); Ordered 12/03/19 Ordered By: Darren Fernandez Referrals: JARED Arreola, [employer] [Primary Care Provider] - 12/09/19 10:40 am Discharge Diet: Cardiac and Diabetic Discharge Activity: Resume usual activity Patient Instructions: Ceftriaxone (Injection), Levofloxacin (By mouth) Activity Restrictions/Additional Instructions: Patient would need ceftriaxone 2 g daily for next 6 weeks. Levofloxacin 750 mg every other day given his creatinine clearance. While being antibiotics he needs to get CBC, CMP checked every week. Please follow-up with the primary care provider and Dr. Panchal/wound care clinic at set appointments. Discharge Attestations Time Spent in Discharge Care*: greater than 30 min Specific Discharge Activities: Specific discharge activities: educating patient, discussing with pcp/other providers, discussing with manager case management/social workers/dc planners, documenting/other paperwork and evaluating patient/reviewing data Status at Discharge: Cognitive status at discharge: cognitively intact, Behavioral status at discharge: cooperative, Functional status at discharge: independent ambulation Overall status at discharge: patient is progressing back to baseline Quality Metrics Clinical Quality Measures During this hospital stay, did patient experience: None Coding Level of Care Code Acute [place] for Joselin Vega Diagnoses Osteomyelitis M86.172 Laterality: left Osteomyelitis location: foot Osteomyelitis type: other acute Type 2 diabetes mellitus with other specified complication E11.69 Diabetes mellitus intermediate designer insulin use: without intermediate designer use Toe ulcer due to secondary DM E13.621; L97.509 Diabetic foot ulcer E11.621; L97.509
[2019-12-03 11:19] VITALS: BP 140/54; PULSE 71; RESP 18; TEMP 36.9; O2SAT 94
[2019-12-03] MEDS: cefTRIAXone 2,000 MG in sodium chloride 0.9% (plus) 50 ML 100 MG IV (11:35)
[2019-12-03 12:00] VITALS: BP 129/71; PULSE 70; RESP 20; TEMP 36.9; O2SAT 94
--- NOTE | 2019-12-03 15:08 | PM.ACPR ---
Procedure/Consent Time out: Time Out Performed: Yes Consent: Consent for Procedure: Consent obtained from patient Procedure Narrative: Preop diagnosis: Osteomyelitis left great toe Postop diagnosis: Same Procedure: 1.Excisional debridement of necrotic wound left great toe 2. bone biopsy for culture Description of the procedure: The patient's right foot was prepped with Betadine and using scissors excisional debridement of skin and necrotic tissue was performed using scissors. 2 fragments of bone from the interphalangeal joint was removed without any significant difficulty and sent for wound bone cultures. There was punctate bleeding noted. Wet-to-dry pressure dressings were applied. Patient tolerated the procedure well. Acute Procedures Epistaxis Control: Time out performed: Yes
--- NOTE | 2019-12-03 15:10 | P.CONIM_ITS ---
Providers/Reason For Consult Consulting Physican/Specialty*: Dr. Husain Reason for Consult*: Wound debridement Attending Physician: Darren Fernandez MD Primary Care Provider: KASSANDRA Corrales History of Present Illness History of Present Illness Alen Maya is a 69 year old male admitted to the hospital from wound care with worsening pain redness and swelling in the left foot. Patient is currently on IV antibiotics for osteomyelitis. Patient has any fevers or chills. He had recently undergone debridement by myself on 11/16/2019. Meds/Allergies Home Medications and Allergies Home Medications Medication Instructions Recorded Confirmed Last Taken Type clopidogrel 75 mg tablet 75 mg PO QDAY #30 tab 06/23/19 12/01/19 12/01/19 Rx aspirin 81 mg tablet,delayed 81 mg PO QDAY 06/24/19 12/01/19 12/01/19 History release sildenafil 100 mg tablet 50 - 100 mg PO QDAY PRN 30 Days 07/11/19 12/01/19 11/15/19 Rx #30 tab carvedilol 25 mg tablet 25 mg PO BID #60 tab 07/22/19 12/01/19 12/01/19 Rx diclofenac sodium 1 % topical gel 4 gm TOPICAL BID PRN #100 gm 07/22/19 12/01/19 12/01/19 Rx hydrochlorothiazide 25 mg tablet 25 mg PO QDAY #30 tab 07/22/19 12/01/19 12/01/19 Rx allopurinol 300 mg tablet 300 mg PO QDAY #30 tab 08/19/19 12/01/19 12/01/19 Rx lisinopril 40 mg tablet 40 mg PO QDAY #30 tab 08/19/19 12/01/19 12/01/19 Rx potassium chloride 10 mEq 10 meq PO QDAY #30 tab 08/19/19 12/01/19 12/01/19 Rx tablet,extended release(part/cryst) ibuprofen 800 mg tablet 800 mg PO Q8H PRN #60 tab 09/17/19 12/01/19 11/15/19 Rx gabapentin 800 mg tablet 800 mg PO TID #90 tab 10/08/19 12/01/19 12/01/19 Rx hydrocodone 5 mg-acetaminophen 325 1 tab PO BID PRN 30 Days #60 tab 10/08/19 12/01/19 11/29/19 Rx mg tablet lubiprostone 8 mcg capsule 8 mcg PO BID 30 Days #60 cap 10/09/19 12/01/19 11/15/19 Rx atorvastatin 20 mg tablet 20 mg PO .at bedtime #30 tab 10/14/19 12/01/19 11/30/19 Rx sitagliptin 100 mg tablet 100 mg PO QDAY #30 tab 10/14/19 12/01/19 12/01/19 Rx empagliflozin 10 mg tablet 10 mg PO DAILY 30 Days #30 tab 11/07/19 12/01/19 12/01/19 Rx pioglitazone 15 mg tablet 15 mg PO QDAY #30 tab 11/07/19 12/01/19 11/15/19 Rx testosterone cypionate 200 mg/mL 200 mg IM .Q 2 WEEKS 30 Days #2 ml 11/09/19 12/01/19 11/28/19 Rx intramuscular oil meloxicam 15 mg tablet 15 mg PO QDAY 90 Days #90 tab 11/28/19 12/01/19 Unknown Rx Multiple Vitamins 1 tab PO DAILY 12/01/19 12/01/19 12/01/19 History ceftriaxone 2 gm IV Q24H #42 each 12/03/19 Unknown Rx levofloxacin 750 mg PO Q48H 42 Days #21 tab 12/03/19 Unknown Rx Allergies Allergy/AdvReac Type Severity Reaction Status Date / Time pregabalin [From Lyrica] Allergy swelling Verified 12/01/19 21:57 in lower extremeties PFSH Acute PFSH: Medical History Chewing tobacco use Chronic gout Chronic idiopathic constipation -bowel regimen DDD (degenerative disc disease) Diabetic neuropathy, painful Encounter for long-term opiate analgesic use Erectile disorder, lifelong, generalized, mild Essential hypertension Essential hypertension -VSS; continue to monitor -continue oral antihypertensives History of diabetic ulcer of foot Hypotestosteronemia Mixed hyperlipidemia Opioid contract exists Primary osteoarthritis of knees, bilateral Therapeutic opioid induced constipation 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 Taylor S/P routine circumcision Family History Other Heart disease Kidney disease Denies family history of Anesthesia complication Bleeding disorder Social History Smoking and tobacco status: former smoker Alcohol intake: current Alcohol intake frequency: other Alcohol type: beer Counseling given: Yes Type of alcohol counseling provided: other Other alcohol counseling details: DISCUSSED ALCOHOL USE PROHIBITED WITH PAIN MEDICATIONS Current occupational status: retired Vitals/I&O/Wt Last Vital Signs Temp 98.4 F 12/03/19 12:00 Pulse 70 12/03/19 12:00 Resp 20 H 12/03/19 12:00 BP 129/71 12/03/19 12:00 Pulse Ox 94 12/03/19 12:00 12/03/19 12/03/19 12/03/19 06:59 14:59 22:59 Intake Total 550 / 886 Output Total 350 / 800 Balance 200 / 86 Weight last 48 hrs Weight 281 lb Physical Exam Narrative: EXAM NARRATIVE: HEENT: Normocephalic Eye: Sclera /conjunctiva normal Abdomen: Soft to palpation Neurological: Oriented to place person and time Skin: Intact, 5 x 4 x 4 cm wound on the medial aspect of the left great toe with necrotic tissue and exposed interphalangeal joint. There is erythema in the surrounding the wound, nontender Data Micro: Micro: Microbiology 12/03/19 08:50 Gram Stain - Final Toe - Biopsy A&P Assessment and plan (1) Diabetic foot ulcer: 69-year-old gentleman admitted to the hospital for IV antibiotics secondary to worsening erythema for diabetic foot ulcer. We will proceed with debridement of the wound as well as bone biopsies to narrow down the antibiotics for management of osteomyelitis Status: Acute Coding Level of Care Code Acute [employer] Attorney for [facility] Diagnoses Diabetic foot ulcer E11.621; L97.509
--- NOTE | 2019-12-06 09:31 | PM.EVENT ---
Event Note Event Note: Culture results from the bone biopsy done on December 02 came back as staph epidermidis resistant to ceftriaxone. As per the culture sensitivity patient should be appropriate with vancomycin. On confirmation with pharmacy his dose of vancomycin depending of his DM, Crcl, age will start him on 2gm QD, with trough to be maintained more than 15 less than 20. Trough to be check before 4th dose and CBC and CMP to be checked weekly while on Abx. Abx to be managed through wound clinic. Event Notes Attestations Time Spent in Patient Care: Greater than 35 minutes
--- NOTE | 2019-12-06 09:47 | PC.SOCIAL ---
Post D/C note: Spoke with Dr. Fernandez who states that patient's IV medication needs to be changed from Ceftriaxone to Vancomycin. Faxed new home IV administration order and today's Event Note from Dr. Fernandez to [facility] and [facility]. Spoke with Caroline at [facility] and notified her fax was being sent and gave her a V/O as well. Caroline states she will let the pharmacist on-call know and find out when this medication can be delivered, then call and let the patient know.
== END 2019-12-03 13:10 | disposition home health service (06) | DRG 623 ==
LOC: ER 22:34 → MEDSURG 23:02
PROVIDERS: Emergency Medicine; Admitting Provider Internal Medicine; PCP Nurse Practitioner Family; Visit Provider Student in an Organized Health Care Education/Training Program
DX: E11.621 Type 2 diabetes mellitus with foot ulcer (principal); M86.172 Other acute osteomyelitis, left ankle and foot; L97.509 Non-pressure chronic ulcer of other part of unspecified foot with unspecified severity; E11.40 Type 2 diabetes mellitus with diabetic neuropathy, unspecified; Z79.82 Long term (current) use of aspirin; Z79.02 Long term (current) use of antithrombotics/antiplatelets; K59.04 Chronic idiopathic constipation; F17.220 Nicotine dependence, chewing tobacco, uncomplicated; Z79.891 Long term (current) use of opiate analgesic; E78.2 Mixed hyperlipidemia; E55.9 Vitamin D deficiency, unspecified; Z85.828 Personal history of other malignant neoplasm of skin; E66.01 Morbid (severe) obesity due to excess calories; Z68.38 Body mass index [BMI] 38.0-38.9, adult; I12.9 Hypertensive chronic kidney disease with stage 1 through stage 4 chronic kidney disease, or unspecified chronic kidney disease; N18.9 Chronic kidney disease, unspecified; E11.22 Type 2 diabetes mellitus with diabetic chronic kidney disease; B96.20 Unspecified Escherichia coli [E. coli] as the cause of diseases classified elsewhere; B95.62 Methicillin resistant Staphylococcus aureus infection as the cause of diseases classified elsewhere
CPT/HCPCS: 12345; 36415; 36416; 36569; 71045; 73630; 80048; 80053; 81001; 82962; 83605; 85025; 85651; 87070; 87075; 87077; 87176; 87186; 87205; 88304; 96372; 99282; A6446; G0463; J0696; J1815; J2543; J3370; J7040; J7050

== ENCOUNTER 2019-12-04 08:26 | Outpatient (CLI) | payer MEDICARE, MEDICAID, SELFPAY | END 2019-12-04 08:27 | disposition home or self-care (01) | PROVIDERS: PCP Nurse Practitioner Family; Visit Provider Thoracic Surgery (Cardiothoracic Vascular Surgery) | DX: E11.621 Type 2 diabetes mellitus with foot ulcer (principal); L97.524 Non-pressure chronic ulcer of other part of left foot with necrosis of bone | CPT/HCPCS: 11044 ==

== ENCOUNTER 2019-12-08 10:55 | Day surgery (SDC) | payer MEDICARE, MEDICAID, SELFPAY ==
[2019-12-04 15:55] VITALS: BMI 38.1
[2019-12-08 11:28] VITALS: BP 124/71; PULSE 67; RESP 20; TEMP 36.4; O2SAT 95
--- NOTE | 2019-12-08 11:48 | ANES.PREANE2 ---
Pre-Anesthetic Assessment Pre-Anesthetic Assessment: Height/Weight: Height 1.83 m Weight 127.459 kg Temp Pulse Resp BP Pulse Ox 97.6 F 67 20 H 124/71 95 12/08/19 11:28 12/08/19 11:28 12/08/19 11:28 12/08/19 11:28 12/08/19 11:28 Preop Diagnosis: Left great toe amputation Proposed Procedure: Operation Date: 12/08/19 12:45 Proposed Procedures p Amputation Toe/s left great toe(Left) - Rolly Panchal MD Last intake: Intake Last Liquid Date 12/08/19 Last Liquid Time 07:00 Last Solid Date 12/07/19 Last Solid Time 18:00 Social: Social History: Alcohol and Tobacco (chews) Exam: Pre-Anes Outpt Exam: alert, oriented x 3, clear to auscultation bilaterally and regular rate & rhythm Airway: Submandibular: WNL Cervical ROM: WNL MP: 2 Dentition: Other (one tooth) History/ROS: No significant history except as noted Pulmonary: Pulmonary: None reported CV/HEM: CV/HEM: HTN : : Chronic renal Insufficiency Hepatic: Hepatic: None reported GI: GI: None reported Metabolic: Metabolic: DM, Hyperlipidemia and Morbid obesity Comments: Gout Musc/skel: Musc/skel: OA/DJD Neuropsych: Neuropsych: Neuropathy (bilat feet) Anesthetic Plan: ASA status: 3 Anesthesia: Anesthesia Evaluation and General Risk of > 500 ml blood loss (7ml/kg in children): No PFSH Anesthesia PFSH: Medical History Chewing tobacco use Chronic gout Chronic idiopathic constipation -bowel regimen DDD (degenerative disc disease) Diabetic neuropathy, painful Encounter for long-term opiate analgesic use Erectile disorder, lifelong, generalized, mild Essential hypertension Essential hypertension -VSS; continue to monitor -continue oral antihypertensives History of diabetic ulcer of foot Hypotestosteronemia Mixed hyperlipidemia Opioid contract exists Primary osteoarthritis of knees, bilateral Therapeutic opioid induced constipation 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 Taylor S/P routine circumcision Family History Other Heart disease Kidney disease Denies family history of Anesthesia complication Bleeding disorder Social History Smoking and tobacco status: former smoker Alcohol intake: current Alcohol intake frequency: other Alcohol type: beer Counseling given: Yes Type of alcohol counseling provided: other Other alcohol counseling details: DISCUSSED ALCOHOL USE PROHIBITED WITH PAIN MEDICATIONS Current occupational status: retired Data Anesthesia Cardiac Studies: No Data to Display
[2019-12-08] MEDS: sodium chloride 0.9% 1,000 ML 30 ML IV (12:23)
[2019-12-08 12:56] LABS: INR 1.03 (0.8-1.2)
[2019-12-08 13:13] LABS: Anion Gap 19.4 (5-19); Blood Urea Nitrogen 20 mg/dL (8-23); Calcium 9.5 mg/dL (8.5-10.5); Carbon Dioxide 24 mmol/L (22-29); Chloride 96 mmol/L (98-107); Glomerular Filtration Rate 50.2 mL/min (90-130); Glucose 178 mg/dL (65-115); Osmolality Calculated 281 mOsm/kg (285-295); Potassium 4.4 mmol/L (3.5-5.1); Sodium 135 mmol/L (136-145)
[2019-12-08 13:15] LABS: Basophils % 0.6 %; Eosinophils # 0.3 10^3/uL (0.0-0.8); Eosinophils % 4.2 %; Hematocrit 37.1 % (42.0-52.0); Hemoglobin 11.5 g/dL (11.7-16.6); Lymphocytes # 1.4 10^3/uL (0.8-4.8); Lymphocytes % 21.7 %; Mean Corpuscular Hemoglobin 27.5 pg (28.0-34.0); Mean Corpuscular Volume 88.8 fL (80-94); Mean Platelet Volume 10.1 fL (7.4-10.4); Monocytes # 0.7 10^3/uL (0.2-0.9); Monocytes % 10.2 %; Neutrophils % 62.4 %; Nucleated Red Blood Cells % 0 %; Platelet Count 140 10^3/cmm (130-400); Red Blood Count 4.18 10^6/uL (4.1-5.3); Red Cell Distribution Width 15.2 % (12.1-15.1); White Blood Count 6.4 10^3/uL (4.0-10.0)
--- NOTE | 2019-12-08 13:55 | W.PM.OPSUD ---
Surgery/Procedure H&P Update DATE OF PROCEDURE: December 08, 2019 DATE H&P PERFORMED: 12/01/19 H&P UPDATE INFORMATION: I have reviewed H&P completed within last 30 days, I have examined patient prior to procedure and No changes to prior documentation PREOP DIAGNOSIS: Left great toe amputation PRIMARY INDICATION FOR PROCEDURE: Deep infection with osteomyelitis of the left great toe in this diabetic gentleman who is failed to respond to standard medical therapy. Due to the substantial bony destruction, amputation of been recommended. PLANNED PROCEDURE: Operation Date: 12/08/19 12:45 Proposed Procedures p Amputation Toe/s left great toe(Left) - Rolly Panchal MD
[2019-12-08] MEDS: ceFAZolin 1,000 mg SDV 1000 MG IRRIGATION (14:28)
[2019-12-08 15:44] VITALS: BP 122/75; PULSE 62; RESP 18; TEMP 36.6; O2SAT 94
--- NOTE | 2019-12-08 15:51 | P.OP_ITS ---
Operative Report Date of procedure: December 08, 2019 Pre-op Diagnosis: Left great toe amputation Post-op diagnosis: same Procedure Done: Amputation of left great toe with primary closure Specimens removed/disposition: Left great toe Anesthesia: MAC Complications: None Condition: stable Disposition: same day Brief History: 69-year-old diabetic gentleman with osteomyelitis of the left great toe is undergone prior debridement with still has difficulties with periwound cellulitis which is included the distal forefoot. With no substantial destruction of his phalanges of the left great toe, he has failed standard medical care and it is felt that amputation should be considered. He and his are in agreement after he is undergone intensive management through wound care services. Details of risk the procedure were carefully and frankly discussed. Proper consents were reviewed and signed. Procedure: Mr. Maya was taken operating room theater carefully positioned on the OR table. After confirmation of appropriate IVs, he underwent IV conscious sedation anesthesia monitoring. His entire left foot was sterilely prepped and draped including the distal portion of the left leg. Circumferential incision of the base of the left great toe was formed and dissection was continued down sharply to the metatarsal phalangeal joint thereby transecting all ligaments and tendons in the region until the toe was completely transected and sent to pathology as a permanent specimen. Digital artery bleeding was controlled with the use of 3-0 ligature and cautery. Bleeding points were also controlled with cautery. Once completed the articular surface of the first metatarsal was removed utilizing a bone rongeur this continued down approximately as well as removal of some plantar sesamoid bones which allowed for more easier rotation posteriorly of the flap to provide primary closure. Tissue appeared to be viable in the region no marisa abscess or purulent material discovered no necrosis noted. Distal portion of the first metatarsal appeared to be firm without obvious infection. Once completed, antibiotic irrigation was utilized to irrigate the wound bed. Hemostasis was confirmed. At this point I elected to proceed with plans for primary closure. The wound margins were reapproximated with interrupted 2-0 suture placed in a mattress fashion. Skin approximation was performed utilizing 3-0 nylon suture in interrupted fashion. Sterile dressing was applied. Arm procedure well without discomfort. He is awakened from IV conscious sedation and taken to the outpatient surgery department in stable condition. I did rehabilitation counsellor with his and Mr. Maya at bedside. He will be scheduled to follow-up with me in 2 days, Sunday, December 07 at wound care services. He will continue IV vancomycin through his previously established PICC line. He is also being followed by [facility] services.
[2019-12-08 16:15] VITALS: BP 135/86; PULSE 57; RESP 18; TEMP 35.9; O2SAT 98
== END 2019-12-08 16:29 | disposition home or self-care (01) ==
PROVIDERS: PCP Nurse Practitioner Family; Visit Provider Thoracic Surgery (Cardiothoracic Vascular Surgery)
PROC: (CPT 28820; principal; 2019-12-08 12:25)
DX: E11.622 Type 2 diabetes mellitus with other skin ulcer (principal); M86.8X8 Other osteomyelitis, other site; I10 Essential (primary) hypertension; E78.5 Hyperlipidemia, unspecified; E66.01 Morbid (severe) obesity due to excess calories; Z68.38 Body mass index [BMI] 38.0-38.9, adult; M19.90 Unspecified osteoarthritis, unspecified site; E11.40 Type 2 diabetes mellitus with diabetic neuropathy, unspecified; F17.220 Nicotine dependence, chewing tobacco, uncomplicated
CPT/HCPCS: 28820; 12345; 36592; 80048; 85025; 85610; 88305; J0690; J2001; J2250; J2704; J3010; J7030

== ENCOUNTER 2019-12-10 14:43 | Outpatient (CLI) | payer MEDICARE, MEDICAID, SELFPAY | END 2019-12-10 14:44 | disposition home or self-care (01) | LOC: WOUND 14:43 | PROVIDERS: PCP Nurse Practitioner Family; Visit Provider Thoracic Surgery (Cardiothoracic Vascular Surgery) | DX: E11.621 Type 2 diabetes mellitus with foot ulcer (principal); L97.525 Non-pressure chronic ulcer of other part of left foot with muscle involvement without evidence of necrosis; Z89.422 Acquired absence of other left toe(s) | CPT/HCPCS: G0463; L3260 ==

== ENCOUNTER → 2019-12-16 09:26 | Outpatient (BNVA) | payer MEDICARE, MEDICAID, SELFPAY | PROVIDERS: PCP Nurse Practitioner Family; Visit Provider Nurse Practitioner | DX: M25.562 Pain in left knee (principal); M25.561 Pain in right knee; E11.69 Type 2 diabetes mellitus with other specified complication; F17.220 Nicotine dependence, chewing tobacco, uncomplicated; Z79.891 Long term (current) use of opiate analgesic | CPT/HCPCS: 99213 ==

== ENCOUNTER 2019-12-16 10:48 | Outpatient (CLI) | payer MEDICARE, MEDICAID, SELFPAY | END 2019-12-16 10:49 | disposition home or self-care (01) | LOC: WOUND 10:52 | PROVIDERS: PCP Nurse Practitioner Family; Visit Provider Thoracic Surgery (Cardiothoracic Vascular Surgery) | DX: Z89.422 Acquired absence of other left toe(s) (principal) | CPT/HCPCS: 99212 ==

== ENCOUNTER 2019-12-22 10:17 | Outpatient (CLI) | payer MEDICARE, MEDICAID, SELFPAY ==
[2019-12-22 11:05] LABS: Anion Gap 17.3 (5-19); Blood Urea Nitrogen 25 mg/dL (8-23); Calcium 9.1 mg/dL (8.5-10.5); Carbon Dioxide 25 mmol/L (22-29); Chloride 97 mmol/L (98-107); Glomerular Filtration Rate 50.2 mL/min (90-130); Glucose 177 mg/dL (65-115); Osmolality Calculated 281 mOsm/kg (285-295); Potassium 4.3 mmol/L (3.5-5.1); Sodium 135 mmol/L (136-145); Vancomycin Trough 19.5 ug/mL (10-15)
== END 2019-12-22 10:18 | disposition home or self-care (01) ==
PROVIDERS: PCP Nurse Practitioner Family; Visit Provider Thoracic Surgery (Cardiothoracic Vascular Surgery)
DX: B95.62 Methicillin resistant Staphylococcus aureus infection as the cause of diseases classified elsewhere (principal)
CPT/HCPCS: 80048; 80202

== ENCOUNTER 2019-12-23 10:08 | Outpatient (CLI) | payer MEDICARE, MEDICAID, SELFPAY | END 2019-12-23 10:09 | disposition home or self-care (01) | PROVIDERS: PCP Nurse Practitioner Family; Visit Provider Thoracic Surgery (Cardiothoracic Vascular Surgery) | DX: E11.621 Type 2 diabetes mellitus with foot ulcer (principal); L97.522 Non-pressure chronic ulcer of other part of left foot with fat layer exposed; Z89.422 Acquired absence of other left toe(s) | CPT/HCPCS: G0463 ==

== ENCOUNTER 2019-12-29 16:24 | Outpatient (CLI) | payer MEDICARE, MEDICAID, SELFPAY ==
[2019-12-29 17:41] LABS: Anion Gap 16.4 (5-19); Blood Urea Nitrogen 32 mg/dL (8-23); Calcium 8.6 mg/dL (8.5-10.5); Carbon Dioxide 25 mmol/L (22-29); Chloride 98 mmol/L (98-107); Glomerular Filtration Rate 50.2 mL/min (90-130); Glucose 192 mg/dL (65-115); Osmolality Calculated 280 mOsm/kg (285-295); Potassium 5.4 mmol/L (3.5-5.1); Sodium 134 mmol/L (136-145)
[2019-12-29 17:44] LABS: Vancomycin Trough 18.6 ug/mL (10-15)
== END 2019-12-29 16:25 | disposition home or self-care (01) ==
LOC: LAB 16:27
PROVIDERS: PCP Nurse Practitioner Family; Visit Provider Thoracic Surgery (Cardiothoracic Vascular Surgery)
DX: M86.172 Other acute osteomyelitis, left ankle and foot (principal)
CPT/HCPCS: 80048; 80202

== ENCOUNTER 2019-12-30 10:20 | Outpatient (CLI) | payer MEDICARE, MEDICAID, SELFPAY | END 2019-12-30 10:21 | disposition home or self-care (01) | LOC: WOUND 10:21 | PROVIDERS: PCP Nurse Practitioner Family; Visit Provider Thoracic Surgery (Cardiothoracic Vascular Surgery) | DX: E11.621 Type 2 diabetes mellitus with foot ulcer (principal); L97.522 Non-pressure chronic ulcer of other part of left foot with fat layer exposed; Z89.422 Acquired absence of other left toe(s) | CPT/HCPCS: 11042; A6446 ==

== ENCOUNTER 2020-01-05 15:52 | Outpatient (CLI) | payer MEDICARE, MEDICAID, SELFPAY ==
[2020-01-05 16:30] LABS: Anion Gap 16.8 (5-19); Blood Urea Nitrogen 29 mg/dL (8-23); Calcium 9.4 mg/dL (8.5-10.5); Carbon Dioxide 23 mmol/L (22-29); Chloride 100 mmol/L (98-107); Glomerular Filtration Rate 50.2 mL/min (90-130); Glucose 172 mg/dL (65-115); Osmolality Calculated 281 mOsm/kg (285-295); Potassium 4.8 mmol/L (3.5-5.1); Sodium 135 mmol/L (136-145); Vancomycin Trough 18.4 ug/mL (10-15)
== END 2020-01-05 15:53 | disposition home or self-care (01) ==
PROVIDERS: PCP Nurse Practitioner Family; Visit Provider Thoracic Surgery (Cardiothoracic Vascular Surgery)
DX: M86.172 Other acute osteomyelitis, left ankle and foot (principal)
CPT/HCPCS: 80048; 80202

== ENCOUNTER 2020-01-06 09:59 | Outpatient (CLI) | payer MEDICARE, MEDICAID, SELFPAY | END 2020-01-06 10:00 | disposition home or self-care (01) | LOC: WOUND 10:03 | PROVIDERS: PCP Nurse Practitioner Family; Visit Provider Thoracic Surgery (Cardiothoracic Vascular Surgery) | DX: E11.621 Type 2 diabetes mellitus with foot ulcer (principal); L97.522 Non-pressure chronic ulcer of other part of left foot with fat layer exposed; Z89.422 Acquired absence of other left toe(s) | CPT/HCPCS: 11042; 87070; 87176; 87205; L4387 ==

== ENCOUNTER 2020-01-12 16:31 | Outpatient (CLI) | payer MEDICARE, MEDICAID, SELFPAY ==
[2020-01-12 18:05] LABS: Anion Gap 15.7 (5-19); Blood Urea Nitrogen 23 mg/dL (8-23); Calcium 9.4 mg/dL (8.5-10.5); Carbon Dioxide 25 mmol/L (22-29); Chloride 101 mmol/L (98-107); Glomerular Filtration Rate 50.2 mL/min (90-130); Glucose 215 mg/dL (65-115); Osmolality Calculated 287 mOsm/kg (285-295); Potassium 4.7 mmol/L (3.5-5.1); Sodium 137 mmol/L (136-145); Vancomycin Trough 16.9 ug/mL (10-15)
== END 2020-01-12 16:32 | disposition home or self-care (01) ==
LOC: LAB 16:34
PROVIDERS: PCP Nurse Practitioner Family; Visit Provider Thoracic Surgery (Cardiothoracic Vascular Surgery)
DX: M86.172 Other acute osteomyelitis, left ankle and foot (principal)
CPT/HCPCS: 80048; 80202

== ENCOUNTER 2020-01-13 09:44 | Outpatient (CLI) | payer MEDICARE, MEDICAID, SELFPAY | END 2020-01-13 09:45 | disposition home or self-care (01) | LOC: WOUND 09:46 | PROVIDERS: PCP Nurse Practitioner Family; Visit Provider Emergency Medicine | DX: E11.621 Type 2 diabetes mellitus with foot ulcer (principal); L97.522 Non-pressure chronic ulcer of other part of left foot with fat layer exposed; Z89.422 Acquired absence of other left toe(s) | CPT/HCPCS: 11042 ==

== ENCOUNTER 2020-01-20 09:16 | Outpatient (CLI) | payer MEDICARE, MEDICAID, SELFPAY | END 2020-01-20 09:17 | disposition home or self-care (01) | LOC: WOUND 09:17 | PROVIDERS: PCP Nurse Practitioner Family; Visit Provider Nurse Practitioner Family | DX: E11.621 Type 2 diabetes mellitus with foot ulcer (principal); L97.522 Non-pressure chronic ulcer of other part of left foot with fat layer exposed; Z89.422 Acquired absence of other left toe(s) | CPT/HCPCS: 11042 ==

== ENCOUNTER 2020-01-27 09:43 | Outpatient (CLI) | payer MEDICARE, MEDICAID, SELFPAY | END 2020-01-27 09:44 | disposition home or self-care (01) | LOC: WOUND 09:44 | PROVIDERS: PCP Nurse Practitioner Family; Visit Provider Thoracic Surgery (Cardiothoracic Vascular Surgery) | DX: E11.621 Type 2 diabetes mellitus with foot ulcer (principal); L97.522 Non-pressure chronic ulcer of other part of left foot with fat layer exposed; Z89.422 Acquired absence of other left toe(s) | CPT/HCPCS: 11042; 11730 ==

== ENCOUNTER 2020-02-03 10:16 | Outpatient (CLI) | payer MEDICARE, MEDICAID, SELFPAY | END 2020-02-03 10:17 | disposition home or self-care (01) | LOC: WOUND 10:16 | PROVIDERS: PCP Nurse Practitioner Family; Visit Provider Thoracic Surgery (Cardiothoracic Vascular Surgery) | DX: E11.621 Type 2 diabetes mellitus with foot ulcer (principal); L97.522 Non-pressure chronic ulcer of other part of left foot with fat layer exposed; Z89.422 Acquired absence of other left toe(s) | CPT/HCPCS: 11042; L3260 ==

== ENCOUNTER → 2020-02-10 08:55 | Outpatient (BNVA) | payer MEDICARE, MEDICAID, SELFPAY | PROVIDERS: PCP Nurse Practitioner Family; Visit Provider Anesthesiology | DX: M25.562 Pain in left knee (principal); M25.561 Pain in right knee; E11.40 Type 2 diabetes mellitus with diabetic neuropathy, unspecified; E11.69 Type 2 diabetes mellitus with other specified complication; Z72.0 Tobacco use; Z79.891 Long term (current) use of opiate analgesic | CPT/HCPCS: 99214 ==

== ENCOUNTER 2020-02-10 10:18 | Outpatient (CLI) | payer MEDICARE, MEDICAID, SELFPAY | END 2020-02-10 10:19 | disposition home or self-care (01) | LOC: WOUND 10:20 | PROVIDERS: PCP Nurse Practitioner Family; Visit Provider Thoracic Surgery (Cardiothoracic Vascular Surgery) | DX: E11.621 Type 2 diabetes mellitus with foot ulcer (principal); L97.522 Non-pressure chronic ulcer of other part of left foot with fat layer exposed; Z89.422 Acquired absence of other left toe(s) | CPT/HCPCS: 11042 ==

== ENCOUNTER → 2020-02-11 11:44 | Outpatient (BNVA) | payer MEDICARE, MEDICAID, SELFPAY | PROVIDERS: PCP Nurse Practitioner Family; Visit Provider Nurse Practitioner Family | DX: I10 Essential (primary) hypertension; E34.9 Endocrine disorder, unspecified; E55.9 Vitamin D deficiency, unspecified; E11.69 Type 2 diabetes mellitus with other specified complication | CPT/HCPCS: 80053; 80061; 82306; 83036; 83735; 84100; 84403; 84443; 85007; 85027 ==

== ENCOUNTER 2020-02-17 10:26 | Outpatient (CLI) | payer MEDICARE, MEDICAID, SELFPAY | END 2020-02-17 10:27 | disposition home or self-care (01) | LOC: WOUND 10:30 | PROVIDERS: PCP Nurse Practitioner Family; Visit Provider Thoracic Surgery (Cardiothoracic Vascular Surgery) | DX: E11.621 Type 2 diabetes mellitus with foot ulcer (principal); L97.522 Non-pressure chronic ulcer of other part of left foot with fat layer exposed; Z89.422 Acquired absence of other left toe(s) | CPT/HCPCS: 11042 ==

== ENCOUNTER 2020-02-17 12:29 | Outpatient (CLI) | payer MEDICARE, MEDICAID, SELFPAY ==
--- NOTE | 2020-02-17 12:33 | US_ITS ---
WS: [id number] RENAL ULTRASOUND HISTORY: CHRONIC KIDNEY [id number] COMPARISON: None available. TECHNIQUE: 2-D and color Doppler imaging of the kidney submitted. Right kidney: 11.0 cm x 4.8 cm x 5.2 cm. Normal echogenicity with no hydronephrosis or mass. Left kidney: 11.5 cm x 5.1 cm x 5.0 cm. Normal echogenicity with no hydronephrosis or mass. Aorta: Normal. Urinary Bladder: Normal distention. US/US renal BI* [id number] IMPRESSION: Normal renal ultrasound.
== END 2020-02-17 12:30 | disposition home or self-care (01) ==
LOC: US 12:30
PROVIDERS: PCP Nurse Practitioner Family; Visit Provider Internal Medicine Nephrology
DX: N18.3 Chronic kidney disease, stage 3 (moderate) (principal)
CPT/HCPCS: 76770

== ENCOUNTER 2020-02-26 11:10 | Emergency (ER) | payer MEDICARE, MEDICAID, SELFPAY ==
[2020-02-26 11:10] VITALS: BP 115/70; PULSE 79; RESP 18; TEMP 36.4; O2SAT 98; BMI 35.9
--- NOTE | 2020-02-26 11:26 | W.ED.EXTPRO ---
HPI - Extremity Problem General: Chief complaint: General Medical Stated complaint: knee pain Time Seen by Provider: 02/26/20 11:25 Source: patient Mode of arrival: wheelchair Limitations: no limitations History of Present Illness: HPI Narrative: Patient is a 69-year-old male who presents to ED today with a complaint of left greater than right knee pain. Patient tells me he has had pain in his bilateral knees for several months now and has been diagnosed with arthritis. He tells me he sees pain management and was supposed to have intra-articular steroid injections performed however the pain management provider was unfortunately out of office. He has not noticed any worsening pain, swelling, redness, warmth to the joint. He has no other complaints at this time. MD Complaint: joint pain (bilateral knees) Onset (ago): month(s) Pain Consistency: constant Location: left, right and lower extremity Radiation: none Relieving factors: immobilization Exacerbating factors: range of motion, weight bearing and walking Associated symptoms: Reports no associated symptoms Review of Systems Musc: Reports: joint pain (bilateral knees ); Denies: extremity pain, extremity swelling, joint redness or joint warmth Skin/Breast: Denies: changes in skin color Neuro: Denies: numbness in extremities, weakness in extremities or sensory changes PFSH ED PFSH: Medical History (Updated 02/26/20 @ 11:46 by LAURYN Cruz) Chewing tobacco use Chronic gout Chronic idiopathic constipation -bowel regimen DDD (degenerative disc disease) Diabetic neuropathy, painful Encounter for long-term opiate analgesic use Erectile disorder, lifelong, generalized, mild Essential hypertension Essential hypertension -VSS; continue to monitor -continue oral antihypertensives History of amputation of left great toe 12/08/19 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 Taylor S/P routine circumcision Family History Other Heart disease Kidney disease Denies family history of Anesthesia complication Bleeding disorder Social History Smoking and tobacco status: former smoker Alcohol intake: current Alcohol intake frequency: other Alcohol type: beer Counseling given: Yes Type of alcohol counseling provided: other Other alcohol counseling details: DISCUSSED ALCOHOL USE PROHIBITED WITH PAIN MEDICATIONS Current occupational status: retired Physical Exam Const: COMMON NORMALS: no acute distress, patient oriented x3, no limitations and alert Extremity: COMMON NORMALS: full ROM, capillary refill normal, no joint enlargement, no clubbing, cyanosis or edema, no calf tenderness and no pedal edema OTHER: bilateral arthritic knee joints; no effusions, redness, swelling, or warmth Neuro: COMMON NORMALS: patient oriented x3, moves all extremities, no focal motor deficits and no sensory deficits noted SENSORIUM/ORIENTATION: Yes alert Course Vital Signs: Vital signs: Vital Signs Temperature 97.6 F 02/26/20 11:10 Pulse Rate 79 02/26/20 11:10 Respiratory Rate 18 02/26/20 11:10 Blood Pressure 115/70 02/26/20 11:10 Pulse Oximetry 98 02/26/20 11:10 MDM - Extremity (Nontraumatic) MDM Narrative: Medical decision making narrative: I explained to patient how we do not routinely do intra-articular joint injections from the emergency department as these are non-emergent procedures. Told him I would be willing to give him a IM shot of dexamethasone. Recommend he contact his pain management provider to set up an appointment for this procedure. Discharge Plan Discharge Patient Disposition: Home Clinical Impression: Knee osteoarthritis Qualifiers: Osteoarthritis type: primary Laterality: bilateral Qualified Code(s): M17.0 - Bilateral primary osteoarthritis of knee Condition: Stable Prescriptions: No Action meloxicam 15 mg tablet 15 mg PO QDAY 90 Days Qty: 90 RF: 1 aspirin 81 mg tablet,delayed release (DR/EC) 81 mg PO QDAY RF: 0 oxycodone-acetaminophen 5-325 mg tablet 1 tab PO BID 30 Days Qty: 60 RF: 0 oxycodone-acetaminophen 5-325 mg tablet 1 tab PO BID PRN (Reason: pain) 30 Days Qty: 60 RF: 0 gabapentin 800 mg tablet 800 mg PO QID Qty: 120 RF: 1 testosterone cypionate 200 mg/mL oil 200 mg IM .Q 2 WEEKS 30 Days Qty: 2 RF: 2 metformin 1,000 mg tablet 1,000 mg PO BID 30 Days Qty: 60 RF: 2 lisinopril 20 mg tablet 10 mg PO DAILY 30 Days Qty: 30 RF: 0 Januvia 100 mg tablet 100 mg PO QDAY Qty: 30 RF: 2 clopidogrel [Plavix] 75 mg tablet 75 mg PO QDAY Qty: 30 RF: 5 hydrochlorothiazide 25 mg tablet See Rx Instructions .ROUTE .COMPLEX Qty: 30 RF: 2 diclofenac sodium 1 % gel See Rx Instructions .ROUTE .COMPLEX Qty: 100 RF: 2 carvedilol 25 mg tablet See Rx Instructions .ROUTE .COMPLEX Qty: 60 RF: 2 lisinopril 40 mg tablet See Rx Instructions .ROUTE .COMPLEX Qty: 30 RF: 2 Hold Instructions: Dose Change allopurinol 300 mg tablet See Rx Instructions .ROUTE .COMPLEX Qty: 30 RF: 2 potassium chloride 10 mEq tablet extended release See Rx Instructions .ROUTE .COMPLEX Qty: 30 RF: 2 atorvastatin 20 mg tablet See Rx Instructions .ROUTE .COMPLEX Qty: 30 RF: 0 pioglitazone 15 mg tablet See Rx Instructions .ROUTE .COMPLEX Qty: 30 RF: 0 empagliflozin [Jardiance] 10 mg tablet See Rx Instructions .ROUTE .COMPLEX Qty: 30 RF: 1 multivitamin [Multiple Vitamins] Tablet 1 tab PO DAILY RF: 0 Discharge Orders: Discharge Order (Routine); Ordered 02/26/20 Ordered By: Debbie Ramos Referrals: JARED Arreola, [facility] [employer] [Primary Care Provider] - Patient Instructions: Osteoarthritis, Osteoarthritis (ED) Activity Restrictions/Additional Instructions: As discussed please contact your pain management provider for further management. We do not routinely do intra-articular injections from the emergency department. Discharge Date/Time: 02/26/20 12:02 Coding Level of Care Code ED Explosive Man for Joselin Vega Exam Expanded Problem Focused
[2020-02-26] MEDS: dexamethasone 10 mg/mL INJ 8 MG IM (11:54)
== END 2020-02-26 12:02 | disposition home or self-care (01) ==
PROVIDERS: Emergency Provider Physician Assistant; PCP Nurse Practitioner Family
DX: M17.0 Bilateral primary osteoarthritis of knee (principal); Z79.84 Long term (current) use of oral hypoglycemic drugs; Z79.02 Long term (current) use of antithrombotics/antiplatelets; Z79.82 Long term (current) use of aspirin; E11.40 Type 2 diabetes mellitus with diabetic neuropathy, unspecified; I10 Essential (primary) hypertension; E78.2 Mixed hyperlipidemia; Z87.891 Personal history of nicotine dependence
CPT/HCPCS: 12345; 96372; 99281; 99283; J1100

== ENCOUNTER 2020-03-02 13:20 | Outpatient (CLI) | payer MEDICARE, MEDICAID, SELFPAY | END 2020-03-02 13:21 | disposition home or self-care (01) | LOC: WOUND 13:21 | PROVIDERS: PCP Nurse Practitioner Family; Visit Provider Thoracic Surgery (Cardiothoracic Vascular Surgery) | DX: Z09 Encounter for follow-up examination after completed treatment for conditions other than malignant neoplasm (principal) | CPT/HCPCS: 99212 ==

== ENCOUNTER → 2020-03-04 11:42 | Outpatient (BNVA) | payer MEDICARE, MEDICAID, SELFPAY | PROVIDERS: PCP Nurse Practitioner Family; Visit Provider Nurse Practitioner Family | DX: D64.9 Anemia, unspecified (principal); M25.561 Pain in right knee; M25.562 Pain in left knee; G89.29 Other chronic pain; I10 Essential (primary) hypertension | CPT/HCPCS: 80053; 82607; 82746; 83540; 85025 ==

== ENCOUNTER → 2020-03-11 10:31 | Outpatient (BNVA) | payer MEDICARE, MEDICAID, SELFPAY | PROVIDERS: PCP Nurse Practitioner Family; Visit Provider Anesthesiology | DX: G89.29 Other chronic pain (principal); M25.562 Pain in left knee | CPT/HCPCS: 20610; 77002; 77003; J1030; J3490 ==

== ENCOUNTER → 2020-03-16 11:10 | Outpatient (BNVA) | payer MEDICARE, MEDICAID, SELFPAY | PROVIDERS: PCP Nurse Practitioner Family; Visit Provider Family Medicine | DX: E86.0 Dehydration (principal); I95.9 Hypotension, unspecified; I10 Essential (primary) hypertension; E11.69 Type 2 diabetes mellitus with other specified complication; G89.29 Other chronic pain; Z51.81 Encounter for therapeutic drug level monitoring; Z79.02 Long term (current) use of antithrombotics/antiplatelets | CPT/HCPCS: 80053; 83735; 84100; 85025 ==

== ENCOUNTER → 2020-03-31 09:59 | Outpatient (BNVA) | payer MEDICARE, MEDICAID, SELFPAY | PROVIDERS: PCP Nurse Practitioner Family; Visit Provider Anesthesiology | DX: G89.29 Other chronic pain (principal); M25.561 Pain in right knee; M25.562 Pain in left knee; E11.69 Type 2 diabetes mellitus with other specified complication; Z79.891 Long term (current) use of opiate analgesic | CPT/HCPCS: 99214 ==

== ENCOUNTER → 2020-04-13 09:00 | Outpatient (BNVA) | payer MEDICARE, MEDICAID, SELFPAY | PROVIDERS: PCP Nurse Practitioner Family; Visit Provider Family Medicine | DX: R00.0 Tachycardia, unspecified (principal); N18.9 Chronic kidney disease, unspecified; Z79.899 Other long term (current) drug therapy | CPT/HCPCS: 80053 ==

== ENCOUNTER → 2020-05-26 09:39 | Outpatient (BNVA) | payer MEDICARE, MEDICAID, SELFPAY | PROVIDERS: PCP Nurse Practitioner Family; Visit Provider Anesthesiology | DX: M25.569 Pain in unspecified knee (principal); G89.29 Other chronic pain; M25.512 Pain in left shoulder; Z79.891 Long term (current) use of opiate analgesic; Z72.0 Tobacco use | CPT/HCPCS: 99214 ==

== ENCOUNTER → 2020-07-02 11:06 | Outpatient (BNVA) | payer MEDICARE, MEDICAID, SELFPAY | PROVIDERS: PCP Nurse Practitioner Family; Visit Provider Anesthesiology | DX: G89.29 Other chronic pain (principal); M25.561 Pain in right knee; M25.562 Pain in left knee; E11.69 Type 2 diabetes mellitus with other specified complication; Z87.891 Personal history of nicotine dependence; Z79.891 Long term (current) use of opiate analgesic | CPT/HCPCS: 99213 ==

== ENCOUNTER → 2020-08-03 11:38 | Outpatient (BNVA) | payer MEDICARE, MEDICAID, SELFPAY | PROVIDERS: PCP Nurse Practitioner Family; Visit Provider Family Medicine | DX: E11.9 Type 2 diabetes mellitus without complications (principal); M17.0 Bilateral primary osteoarthritis of knee; R00.0 Tachycardia, unspecified; I10 Essential (primary) hypertension | CPT/HCPCS: 83036 ==

== ENCOUNTER → 2020-09-01 12:49 | Outpatient (BNVA) | payer MEDICARE, MEDICAID, SELFPAY | PROVIDERS: PCP Nurse Practitioner Family; Visit Provider Anesthesiology | DX: G89.29 Other chronic pain (principal); M17.0 Bilateral primary osteoarthritis of knee; M25.512 Pain in left shoulder; F17.220 Nicotine dependence, chewing tobacco, uncomplicated; Z79.891 Long term (current) use of opiate analgesic | CPT/HCPCS: 99214 ==

== ENCOUNTER 2020-09-06 06:00 | Outpatient (RCR) | payer MEDICARE, MEDICAID, SELFPAY | END 2020-10-01 23:59 | disposition home or self-care (01) | LOC: WPT 06:00 | PROVIDERS: PCP Nurse Practitioner Family; Referring Provider Nurse Practitioner Family; Visit Provider Nurse Practitioner Family | DX: M25.561 Pain in right knee (principal); M25.562 Pain in left knee; G89.29 Other chronic pain | CPT/HCPCS: 97110; 97163 ==

== ENCOUNTER → 2020-10-07 10:16 | Outpatient (BNVA) | payer MEDICARE, MEDICAID, SELFPAY | PROVIDERS: PCP Nurse Practitioner Family; Visit Provider Anesthesiology | DX: G89.29 Other chronic pain (principal); M17.0 Bilateral primary osteoarthritis of knee; F17.220 Nicotine dependence, chewing tobacco, uncomplicated; Z79.891 Long term (current) use of opiate analgesic | CPT/HCPCS: 99213 ==

== ENCOUNTER → 2021-02-01 11:20 | Outpatient (BNVA) | payer MEDICARE, MEDICAID, SELFPAY | PROVIDERS: PCP Nurse Practitioner Family; Visit Provider Family Medicine | DX: E11.69 Type 2 diabetes mellitus with other specified complication (principal); E11.40 Type 2 diabetes mellitus with diabetic neuropathy, unspecified; M25.569 Pain in unspecified knee; G89.29 Other chronic pain; N18.9 Chronic kidney disease, unspecified; M17.0 Bilateral primary osteoarthritis of knee; M1A.9XX0 Chronic gout, unspecified, without tophus (tophi) | CPT/HCPCS: 83036 ==

== ENCOUNTER → 2021-02-03 08:49 | Outpatient (BNVA) | payer MEDICARE, MEDICAID, SELFPAY | PROVIDERS: PCP Nurse Practitioner Family; Visit Provider Internal Medicine Nephrology | DX: N18.9 Chronic kidney disease, unspecified (principal) | CPT/HCPCS: 80069; 82043; 82310; 83970; 85007; 85027 ==

== ENCOUNTER → 2021-05-10 16:54 | Outpatient (BNVA) | payer MEDICARE, MEDICAID, SELFPAY | PROVIDERS: PCP Nurse Practitioner Family; Visit Provider Family Medicine | DX: E11.69 Type 2 diabetes mellitus with other specified complication (principal); M25.569 Pain in unspecified knee; G89.29 Other chronic pain | CPT/HCPCS: 83036 ==

== ENCOUNTER → 2021-06-21 14:38 | Outpatient (BNVA) | payer MEDICARE, MEDICAID, SELFPAY | PROVIDERS: PCP Nurse Practitioner Family; Visit Provider Nurse Practitioner Family | DX: R60.0 Localized edema (principal) | CPT/HCPCS: 80053 ==

== ENCOUNTER 2021-08-09 10:59 | Emergency (ER) | payer MEDICARE, MEDICAID, SELFPAY ==
[2021-08-09 11:08] VITALS: BP 132/80; PULSE 94; RESP 16; TEMP 36.6; O2SAT 96; BMI 33.3
[2021-08-09 11:27] VITALS: BP 118/67; PULSE 81; RESP 16; O2SAT 98
--- NOTE | 2021-08-09 11:43 | ED_ITS ---
HPI - Extremity Problem General: Chief complaint: Extremity Injury, Lower Stated complaint: feet an legs swelling Time Seen by Provider: 08/09/21 11:16 History of Present Illness: Patient is a 71-year-old male comes to the ED with leg swelling. Patient said he has been having lower extremity swelling for the past 2 months. He is seen his primary care doctor for problem multiple times over the past 2 months. He was put on a diuretic for a month and he had no improvement in leg swelling. took him off diuretic due to concern for kidney injury if continued. He currently has a referral to a clinical review nurse and has an appointment set up with them in the month.. He has pain and his left leg along with swelling today. Denies any injury or trauma to cause leg pain or swelling. Patient says he was referred to clinical review nurse here at [facility] but was told it would be a month so he did not take an appointment. He then tried getting set up with a clinical review nurse in [place] and the earliest appointment he can get in with them was a little over a month. Patient says he canceled both those appointments. He would like to get referral to clinical review nurse as soon as possible here at [facility]. Associated symptoms: Deny chest pain, fever(s) or rash Review of Systems Const: Denies: fever(s), chills or fatigue Eyes: Denies: change in vision or eye discomfort ENMT: Denies: throat pain, odynophagia, nasal discharge or nasal congestion Card: Denies: chest pain, palpitations, edema, swelling of feet/ankles, dyspnea on exertion or orthopnea Resp: Denies: dyspnea, productive cough or non-productive cough GI: Denies: abdominal pain, nausea, vomiting, diarrhea, constipation or hematochezia : Denies: flank pain, difficulty urinating, dysuria or hematuria Musc: Reports: extremity swelling (left leg swelling); Denies: neck pain or back pain Skin/Breast: Denies: rash or new lesions Neuro: Denies: headache(s), numbness in extremities or weakness in extremities [facility] ED PFSH: Medical History Anemia Chewing tobacco use Chronic gout Chronic idiopathic constipation -bowel regimen Chronic knee pain DDD (degenerative disc disease) Diabetic neuropathy, painful Encounter for long-term opiate analgesic use Erectile disorder, lifelong, generalized, mild Essential hypertension Essential hypertension -VSS; continue to monitor -continue oral antihypertensives History of amputation of left great toe 12/08/19 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 Taylor S/P routine circumcision Family History Other Heart disease Kidney disease Denies family history of Anesthesia complication Bleeding disorder Social History Smoking and tobacco status: never smoked Second hand smoke exposure: No Alcohol intake: current Alcohol intake frequency: other Alcohol type: beer Counseling given: Yes Type of alcohol counseling provided: other Other alcohol counseling details: DISCUSSED ALCOHOL USE PROHIBITED WITH PAIN MEDICATIONS Current occupational status: retired History of recent travel: No Physical Exam Const: COMMON NORMALS: no acute distress, patient oriented x3 and alert GENERAL APPEARANCE: cooperative and comfortable HENMT: COMMON NORMALS: normocephalic HEAD & SCALP: normocephalic MOUTH: Normal oral and palatal mucosa present THROAT: posterior oropharynx normal and uvula midline Neck/C-Spine: COMMON NORMALS: supple GENERAL: Yes normal visual inspection Resp: COMMON NORMALS: normal respiratory effort, No retractions, No use of accessory muscles and clear to auscultation bilaterally AUSCULTATION: clear to auscultation bilaterally Cardio: COMMON NORMALS: regular rate, regular rhythm, S1 normal heart sound present, S2 normal heart sound present, No gallops present (Cardio), No clicks present (Cardio), No murmurs present (Cardio) and Peripheral pulses 2+ throughout RATE: regular rate RHYTHM: regular rhythm HEART SOUNDS: S1 normal heart sound present and S2 normal heart sound present PERIPHERAL PULSES: Peripheral pulses 2+ throughout GI: COMMON NORMALS: Normal to inspection, nondistended, normoactive bowel sounds present, Soft to palpation, non-tender and no masses PALPATION: Yes Soft to palpation : COMMON NORMALS: Yes no CVA tenderness BLADDER/KIDNEY EXAM: Yes no CVA tenderness Back/Pelvis: COMMON NORMALS: no CVA tenderness Extremity: NARRATIVE EXTREMITY EXAM: Left leg 2+ pitting edema up to knee. Right leg no pitting edema noted. Neuro: COMMON NORMALS: patient oriented x3 and moves all extremities SENSORIUM/ORIENTATION: Yes alert Skin: GENERAL SKIN EXAM: dry skin Course Vital Signs: Vital signs: Vital Signs Temperature 97.8 F 08/09/21 11:08 Pulse Rate 81 08/09/21 11:27 Respiratory Rate 16 08/09/21 11:27 Blood Pressure 118/67 08/09/21 11:27 Pulse Oximetry 98 08/09/21 11:27 MDM - Extremity (Nontraumatic) Medical Decision Making Patient is a 71-year-old male comes to the ED with left leg edema. Denies any chest pain, shortness of breath or hemoptysis. He has been seen by his PCP about leg swelling multiple times over the past 2 months. PCP put him on a diuretic for a month and it did not help and due to his CKD he took him off diuretic. Patient said he was referred to an [facility] clinical review nurse previously but due to the appointment not being soon enough for him to be canceled the appointment. He tried to get an appointment with [place] clinical review nurse and was not able to get in any sooner there. Patient says he would like to get a referral again to the clinical review nurse here at [facility]. I placed an order with case management for patient to be referred to cardiology. Here in the ED patient's vitals are stable. He appears nontoxic and in no acute distress or pain. He has 2+ pitting edema on the left lower extremity goes up to the knee. No pitting edema in right leg noted. Ultrasound venous duplex of left lower extremity showed no DVT or blood clots seen. Patient was diagnosed with leg edema and was discharged home. He was told director of casework department will be contacting you next several days set up an appointment with cardiology. Elevate left leg and use Messi wraps to compress left leg to help with swelling as well. Return ED precautions given. Patient understood and agree with plan. Imaging Data US Vascular: Radiologist's impression: Ultrasound venous duplex of left lower extremity?prelim report?no DVT or blood clots seen. Discharge Plan Discharge Patient Disposition: Home Clinical Impression: Leg edema, left Condition: Stable Prescriptions: No Action silver sulfadiazine [Silvadene] 1 % cream 1 applic topical BID Qty: 50 0RF Rx Instructions: apply a 1.5 mm thickness oxycodone-acetaminophen 5-325 mg tablet 1 tab PO BID PRN (Reason: pain) 30 Days Qty: 60 0RF (DME) compression stockings See Rx Instructions .Route .MEDSUPPLY Qty: 2 0RF Rx Instructions: As directed aspirin 81 mg tablet,delayed release (DR/EC) 81 mg PO QDAY 0RF testosterone cypionate 200 mg/mL oil 200 mg IM .Q 2 WEEKS 30 Days Qty: 2 2RF metformin 1,000 mg tablet 1,000 mg PO BID 30 Days Qty: 60 6RF Hold Instructions: Doctor's Order Jardiance 10 mg tablet 10 mg PO DAILY 30 Days Qty: 30 6RF gabapentin [Neurontin] 800 mg tablet 800 mg PO QID 30 Days Qty: 120 6RF atorvastatin 20 mg tablet 20 mg PO DAILY 30 Days Qty: 30 6RF allopurinol 300 mg tablet 300 mg PO DAILY 30 Days Qty: 30 6RF Januvia 100 mg tablet 100 mg PO DAILY 30 Days Qty: 30 6RF naproxen 500 mg tablet See Rx Instructions .ROUTE .COMPLEX Qty: 60 2RF Dose Instruction: TAKE ONE TABLET BY MOUTH TWICE DAILY NEEDED FOR PAIN Rx Instructions: TAKE ONE TABLET BY MOUTH TWICE DAILY NEEDED FOR PAIN potassium chloride 20 mEq tablet,ER particles/crystals See Rx Instructions .ROUTE .COMPLEX Qty: 30 2RF Dose Instruction: TAKE 1 TABLET BY MOUTH EVERY DAY FOR 30 DAYS Rx Instructions: TAKE 1 TABLET BY MOUTH EVERY DAY FOR 30 DAYS furosemide 40 mg tablet See Rx Instructions .ROUTE .COMPLEX Qty: 30 2RF Dose Instruction: TAKE 1 TABLET BY MOUTH EVERY DAY FOR 30 DAYS Rx Instructions: TAKE 1 TABLET BY MOUTH EVERY DAY FOR 30 DAYS lisinopril 10 mg tablet See Rx Instructions .ROUTE .COMPLEX Qty: 30 2RF Hold Instructions: Adverse Reaction Dose Instruction: TAKE ONE TABLET BY MOUTH EVERY DAY Rx Instructions: TAKE ONE TABLET BY MOUTH EVERY DAY Discharge Orders: Discharge ED (Routine); Ordered 08/09/21 Ordered By: Manny Crawford Discharge Diet: Regular Discharge Activity: Increase activity as tolerated Patient Instructions: Leg Edema (ED) Activity Restrictions/Additional Instructions: Follow-up with medical provider as directed. Case management should be contacting you in the next several days to set up an appointment with cardiology. Continue taking all home medications as previously prescribed. Use Messi wrap on left leg to help with swelling. Elevate left leg as well daily to help with swelling. Return to the ER or your medical provider if condition worsens. Please read and understand discharge instructions. Thank you for choosing [facility] for your healthcare needs today. Please realize this is an emergency room and that we are providing you with a medical screening exam and this may not be complete and all inclusive of all the testing and or work up that you may need to determine your ailment or severity of your illness. It is very important that you follow up as instructed or that you return to the Emergency Department should you have concerns or if your condition changes or worsens in any way. Coding Level of Care Code ED Specialty Person for Joselin Vega Exam Comprehensive
--- NOTE | 2021-08-09 11:50 | USCV_ITS ---
FrancescoAlen Age: 71 Gender: M : 1950 Exam Date: 08/09/2021 12:16 Ordering Phys: Manny Crawford Technologist: Mumtaz Mcgill [place] [facility] [place]: leg swelling PROCEDURES: Venous duplex imaging was performed in only the left lower extremity. The following venous structures were evaluated: common femoral vein, profunda vein, proximal portion of the greater saphenous vein, superficial femoral vein, and the popliteal vein. In addition, the posterior tibial and peroneal trunk were evaluated. Serial compression, augmentation maneuvers, and spectral Doppler flow evaluation were performed. FINDINGS: Normal 2-D Doppler and augmentation and compressibility throughout the lower extremity venous structures. Additional imaging through the proximal calf veins also reveals no thrombus. Limited evaluation of the greater saphenous vein is patent with no thrombus. CONCLUSIONS No DVT left lower extremity. Dr. Leah Rivas DO (Electronically Signed) Final Date: 09 August 2021 14:48 S
--- NOTE | 2021-08-15 14:31 | DCPLANNER ---
Addendum entered by Melissa Sparrow 09/28/21 09:53: Patient had a follow up appointment scheduled with heart care - patient did attend appointment. Original Note: sales communications manager had message to schedule a follow up appointment for patient with heart care. sales communications manager called [facility], spoke with Elly Foley, gave clinic patients information. A follow up appointment was scheduled for Sunday, September 21, 2021 at 9:[address] Petty. sales communications manager called and gave patient the appointment information.
== END 2021-08-09 13:20 | disposition home or self-care (01) ==
PROVIDERS: Emergency Provider Physician Assistant
DX: R60.0 Localized edema (principal); Z79.82 Long term (current) use of aspirin; Z79.84 Long term (current) use of oral hypoglycemic drugs; E11.40 Type 2 diabetes mellitus with diabetic neuropathy, unspecified; I10 Essential (primary) hypertension; E78.2 Mixed hyperlipidemia
CPT/HCPCS: 93971; 99283

== ENCOUNTER → 2021-09-21 09:33 | Outpatient (BNVA) | payer MEDICARE, MEDICAID, SELFPAY | PROVIDERS: Visit Provider Internal Medicine Cardiovascular Disease | DX: R60.0 Localized edema (principal); I10 Essential (primary) hypertension; E78.2 Mixed hyperlipidemia; M19.90 Unspecified osteoarthritis, unspecified site; Z87.891 Personal history of nicotine dependence; Z79.82 Long term (current) use of aspirin | CPT/HCPCS: 99204 ==

== ENCOUNTER → 2021-10-19 09:31 | Outpatient (BNVA) | payer MEDICARE, MEDICAID, SELFPAY | PROVIDERS: Visit Provider Podiatrist Foot & Ankle Surgery | DX: E11.621 Type 2 diabetes mellitus with foot ulcer (principal); L97.522 Non-pressure chronic ulcer of other part of left foot with fat layer exposed; N18.9 Chronic kidney disease, unspecified | CPT/HCPCS: 11042 ==

== ENCOUNTER → 2021-10-27 13:51 | Outpatient (BNVA) | payer MEDICARE, MEDICAID, SELFPAY | PROVIDERS: Visit Provider Family Medicine | DX: E11.42 Type 2 diabetes mellitus with diabetic polyneuropathy (principal); E11.40 Type 2 diabetes mellitus with diabetic neuropathy, unspecified; M25.569 Pain in unspecified knee; M17.0 Bilateral primary osteoarthritis of knee; M19.90 Unspecified osteoarthritis, unspecified site; G89.29 Other chronic pain; Z79.891 Long term (current) use of opiate analgesic | CPT/HCPCS: 83036 ==

== ENCOUNTER → 2021-11-08 10:54 | Outpatient (BNVA) | payer MEDICARE, MEDICAID, SELFPAY | PROVIDERS: Visit Provider Podiatrist Foot & Ankle Surgery | DX: E11.621 Type 2 diabetes mellitus with foot ulcer (principal); L97.522 Non-pressure chronic ulcer of other part of left foot with fat layer exposed; N18.9 Chronic kidney disease, unspecified; Z89.422 Acquired absence of other left toe(s) | CPT/HCPCS: 99213; 99214 ==

== ENCOUNTER → 2021-11-30 09:49 | Outpatient (BNVA) | payer MEDICARE, MEDICAID, SELFPAY | PROVIDERS: Visit Provider Podiatrist Foot & Ankle Surgery | DX: R60.0 Localized edema (principal); M19.90 Unspecified osteoarthritis, unspecified site; I10 Essential (primary) hypertension; E78.2 Mixed hyperlipidemia; E11.621 Type 2 diabetes mellitus with foot ulcer; L97.522 Non-pressure chronic ulcer of other part of left foot with fat layer exposed; N18.9 Chronic kidney disease, unspecified; E11.69 Type 2 diabetes mellitus with other specified complication; M76.822 Posterior tibial tendinitis, left leg; Z89.412 Acquired absence of left great toe | CPT/HCPCS: 99213; 99214 ==

== ENCOUNTER 2022-01-10 08:52 | Outpatient (CLI) | payer MEDICARE, MEDICAID, SELFPAY ==
--- NOTE | 2022-01-10 09:15 | USCV_ITS ---
Alen Maya Age: 71 Gender: M : 1950 Exam Date: 01/10/2022 09:35 Ordering Phys: Cynthia Petty MD ([email or web address]) Technologist: Mumtaz Mcgill Exam Location: [facility] [place] Indication: Shortness of breath BP: 109 / 69 HR: 69 Rhythm: Sinus Technical Quality: Adequate MEASUREMENTS (Male / Female) Normal Values 2D ECHO LV Diastolic Diameter PLAX 1.7 cm 4.2 - 5.9 / 3.9 - 5.3 cm LV Systolic Diameter PLAX 1.2 cm IVS Diastolic Thickness 1.5 cm 0.6 - 1.0 / 0.6 - 0.9 cm IVS Systolic Thickness 1.6 cm LVPW Diastolic Thickness 1.0 cm 0.6 - 1.0 / 0.6 - 0.9 cm LVPW Systolic Thickness 1.5 cm LVOT Diameter 2.0 cm LV Ejection Fraction 2D Teich 64.0 % LV Ejection Fraction MOD 2C 65.6 % LV Ejection Fraction 2C AL 67.1 % LA Diameter 3.3 cm LA Width 3.2 cm LA Height 5.8 cm RA Width 4.2 cm RA Height 5.0 cm Aorta at Sinotubular Diameter 2.9 cm IVC Diameter 1.5 cm M-MODE Aortic Annulus Diameter 2.8 cm LA Ao Ratio MM 1.1 MV E Point Septal Separation 0.7 cm DOPPLER AV Peak Velocity 143.7 cm/s LVOT Peak Velocity 98.0 cm/s AV Area Cont Eq vti 2.0 cm squared AV Area Cont Eq pk 2.2 cm squared MV Peak Velocity 104.0 cm/s MV Area PHT 4.0 cm squared Mitral E to A Ratio 0.8 MV E' Velocity 36.0 cm/s Mitral E to MV E' Ratio 6.0 Mitral E to LV E' Lateral Ratio 5.6 Mitral E to LV E' Septal Ratio 6.6 TR Peak Velocity 326.0 cm/s TR Peak Gradient 42.5 mmHg TR Mean Velocity 254.0 cm/s TR Mean Gradient 26.9 mmHg TR Velocity Time Integral 90.8 cm Right Atrial Pressure 3.0 mmHg Pulmonary Artery Systolic Pressu 45.5 mmHg RV Acceleration Time 0.1 s RV Ejection Time 0.3 s RV AcT/ET 0.4 FINDINGS Left Ventricle Normal left ventricular size, systolic function and mildly increased wall thickness, with no regional wall motion abnormalities. Left ventricular ejection fraction is estimated at 68 %. Grade I diastolic dysfunction (abnormal relaxation filling pattern), normal to mildly elevated filling pressures. Right Ventricle Normal right ventricular size and systolic function, RVSP 39 mmHg. Right Atrium Normal right atrial size. Right atrial pressure estimated at 3 mmHg. Left Atrium Mildly increased left atrial size. Mitral Valve Mildly thickened mitral valve. No mitral valve stenosis. Trace mitral valve regurgitation. Aortic Valve Structurally normal trileaflet aortic valve. No aortic valve stenosis. No aortic valve regurgitation. Tricuspid Valve Structurally normal tricuspid valve. No tricuspid valve stenosis. Trace tricuspid valve regurgitation. Pulmonic Valve Pulmonic valve not well visualized. No pulmonary valve stenosis. No pulmonary valve regurgitation. Pericardium No pericardial effusion. Aorta Normal size aortic root and proximal ascending aorta. IVC Normal IVC dimension with >50% respiratory change of the inferior vena cava. CONCLUSIONS 1. Normal left ventricular size, systolic function and mildly increased wall thickness, with no regional wall motion abnormalities. Left ventricular ejection fraction is estimated at 68 %. Grade I diastolic dysfunction (abnormal relaxation filling pattern), normal to mildly elevated filling pressures. 2. Normal right ventricular size and systolic function, 3. No significant valvular abnormality. 4. Mildly increased left atrial size. 5. When compared to previous study dated 01/02/2017, there may not have been any significant change. Cynthia Petty MD (Electronically Signed) Final Date: 17 January 2022 13:02 S
== END 2022-01-10 08:53 | disposition home or self-care (01) ==
LOC: RAD 08:57
PROVIDERS: Visit Provider Internal Medicine Cardiovascular Disease
DX: R06.02 Shortness of breath (principal); I05.9 Rheumatic mitral valve disease, unspecified
CPT/HCPCS: 93306

== ENCOUNTER 2022-06-04 06:00 | Outpatient (RCR) | payer MEDICARE, MEDICAID, SELFPAY | END 2022-07-04 23:59 | disposition home or self-care (01) | LOC: WPT 06:00 | PROVIDERS: PCP Family Medicine; Visit Provider Orthopaedic Surgery | DX: Z98.890 Other specified postprocedural states (principal); Z96.652 Presence of left artificial knee joint | CPT/HCPCS: 97110; 97112; 97116; 97163; 97530 ==

== ENCOUNTER 2022-06-13 15:23 | Emergency (ER) | payer MEDICARE, MEDICAID, SELFPAY ==
[2022-06-13 15:28] VITALS: BP 106/62; PULSE 103; RESP 16; TEMP 36.4; O2SAT 97; BMI 29.8
--- NOTE | 2022-06-13 15:35 | ECG_ITS ---
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 Measurements Intervals [place] Rate: 80 P: 0 AL: 0 QRS: 34 QRSD: 85 T: 32 QT: 344 QTc: 399 Interpretive Statements SINUS RHYTHM WITH 2ND DEGREE AV BLOCK, 2:1 OR MOBITZ TYPE II Compared to ECG 11/22/2017 12:26:51 First degree AV block no longer present Electronically Signed On 06-13-2022 17:23:58 WEB DEVELOPMENT MANAGER by Bg Henson M.D. [id number]
--- NOTE | 2022-06-13 16:44 | XRR_ITS ---
PROCEDURE INFORMATION: Exam: XR Chest Exam date and time: 06/13/2022 5:05 PM Age: 72 years old Clinical indication: Cough and other: Weakness, weight loss, falling; Patient HX: C/O weakness, weight loss, falling TECHNIQUE: Imaging protocol: Radiologic exam of the chest. Views: 1 view. COMPARISON: CR XR chest 1V portable [id number] 12/02/2019 1:31 PM FINDINGS: Lungs: Punctate calcified granulomas are noted in the right lung. No consolidative pulmonary infiltrates are noted. Pleural spaces: No pleural effusion. No pneumothorax. Heart/Mediastinum: No cardiomegaly. Diaphragm: Mild elevation of the left hemidiaphragm. Bones/joints: Degenerative spine changes are noted. XR/XR chest 1V portable [id number] IMPRESSION: 1. No acute abnormality demonstrated. 2. There is no interval change from the prior examination.
--- NOTE | 2022-06-13 16:45 | W.ED.WEAKNES ---
HPI - Weakness General: Chief complaint: Weakness Stated complaint: weak,weight loss,falling Time Seen by Provider: 06/13/22 15:42 Source: patient and family Mode of arrival: wheelchair Limitations: no limitations History of Present Illness: This patient was sent to the emergency department from physical therapy and a 1 unit clinic. He apparently was there for physical therapy after he has left knee replacement. They noted that he seemed to be globally weak and they noted the seem to have an irregular heartbeat and referred him for further evaluation. His history is remarkable in that he has diabetes as well as has chronic severe osteoarthritis of both knees. He is just recently had a left knee replacement performed in [place]. He went through home physical therapy and is now continuing his physical therapy at the physical therapy clinic. He denies any falls, chest pain, palpitations, fevers etc. He states that he has not been hungry for several weeks. He states that he does not think the food tastes well and he cannot seem to swallow normally. He does not have any difficulty swallowing liquids however. He denies any black or tarry stools, blood in his stools, blood in his urine, etc. He does chew tobacco. He denies any current alcohol although he used to drink alcohol in the past. He does not smoke tobacco. No known exposure to infectious disease recently. reports that he uses a wheelchair and a walker at home. She states that he is really been inactive prior to his knee replacement. MD Complaint: generalized weakness Associated symptoms: Denies chest pain, chills, melena, dysuria, easy bruising, fever(s), headache(s), nausea, syncope or vomiting Review of Systems Const: Reports: change in appetite, change in weight and fatigue; Denies: fever(s) or chills Eyes: Denies: change in vision ENMT: Denies: throat pain, odynophagia, nasal discharge, nasal congestion or nasal obstruction Card: Denies: chest pain, palpitations, irregular heart rhythm, edema, syncope or pre-syncope Resp: Denies: dyspnea, productive cough or non-productive cough GI: Reports: dysphagia; Denies: abdominal pain, nausea, vomiting, hematochezia or melena : Denies: flank pain, difficulty urinating, dysuria or urinary frequency Musc: Reports: extremity pain (Knees right greater than left postoperatively) and joint swelling; Denies: neck pain or back pain Skin/Breast: Denies: rash Neuro: Denies: headache(s), numbness in extremities, weakness in extremities, dizziness, vertigo or Slurred speech present Psych: Denies: anxiety Chris/Lymph: Denies: easy bruising or easy bleeding PFSH ED PFSH: Medical History Anemia Chewing tobacco use Chronic gout Chronic idiopathic constipation -bowel regimen Chronic knee pain DDD (degenerative disc disease) Diabetic neuropathy, painful Encounter for long-term opiate analgesic use Erectile disorder, lifelong, generalized, mild Essential hypertension Essential hypertension -VSS; continue to monitor -continue oral antihypertensives History of amputation of left great toe 12/08/19 Dr. 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 Taylor S/P routine circumcision Family History Mother Myocardial infarct Father Kidney disease Other Heart disease Social History Smoking and tobacco status: never smoked Second hand smoke exposure: No Alcohol intake: current Alcohol intake frequency: other Alcohol type: beer Counseling given: Yes Type of alcohol counseling provided: other Other alcohol counseling details: DISCUSSED ALCOHOL USE PROHIBITED WITH PAIN MEDICATIONS Current occupational status: retired History of recent travel: No Physical Exam Narrative: EXAM NARRATIVE: Patient lying comfortably on the bed. He answers questions readily. He appears to be in no acute distress. Const: COMMON NORMALS: no acute distress, average body habitus and patient oriented x3 GENERAL APPEARANCE: cooperative and comfortable ORIENTATION/CONSCIOUSNESS: Yes awake HENMT: COMMON NORMALS: normocephalic, Normal nasal mucous membranes and turbinates present, moist oral mucous membranes and oropharynx normal HEAD & SCALP: normocephalic FACE & SINUS: normal facial exam NOSE: Normal nasal mucous membranes and turbinates present Eye: COMMON NORMALS: Equal, round and reactive pupils present, EOMs intact bilaterally and conjunctivae normal CONJUNCTIVA: Yes conjunctivae normal PUPIL: Yes Equal, round and reactive pupils present Neck/C-Spine: COMMON NORMALS: full ROM, no JVD and No carotid bruits Chest: COMMONS NORMALS: normal inspection of the chest and normal palpation of entire chest wall Resp: COMMON NORMALS: normal respiratory effort, No retractions, No use of accessory muscles and clear to auscultation bilaterally AUSCULTATION: clear to auscultation bilaterally Cardio: COMMON NORMALS: no JVD, regular rate, regular rhythm, No murmurs present (Cardio) and Peripheral pulses 2+ throughout RATE: regular rate RHYTHM: regular rhythm PERIPHERAL PULSES: Peripheral pulses 2+ throughout GI: COMMON NORMALS: Normal to inspection, nondistended, normoactive bowel sounds present, Soft to palpation, non-tender, No hepatosplenomegaly present and no masses PALPATION: Yes Soft to palpation and Yes No hepatosplenomegaly present Back/Pelvis: COMMON NORMALS: no thoracic nor lumbar tenderness, thoraco-lumbar ROM normal and straight leg raise negative bilaterally Extremity: COMMON NORMALS: full ROM, no calf tenderness and no pedal edema NARRATIVE EXTREMITY EXAM: He has a left knee which shows a well-healed anterior arthrotomy arthroplasty scar. No erythema, effusion, drainage. Right knee shows symmetrical enlargement without any erythema, warmth. Neuro: COMMON NORMALS: patient oriented x3, moves all extremities, no focal motor deficits and no sensory deficits noted CRANIAL NERVES: Yes CN normal except as noted Course Reevaluation(s): Reevaluation #1: The patient remained stable. We have seen occasional episodes of atrial fibrillation with controlled ventricular response but no other evidence of other worrisome arrhythmia. He has had his magnesium repleted and all his ancillary studies have returned. No evidence of ongoing ischemia. His troponin has fallen and his EKGs again have no ischemic changes and he has had no symptoms of chest pain or other anginal equivalents while in the emergency department. Time: 22:43 Vital Signs: Vital signs: Vital Signs Temperature 97.5 F L 06/13/22 15:28 Pulse Rate 82 06/13/22 20:52 Respiratory Rate 16 06/13/22 20:52 Blood Pressure 132/68 06/13/22 20:52 Pulse Oximetry 96 06/13/22 20:52 Oxygen Delivery Me thod 06/13/22 20:52 MDM - Weakness Medical Decision Making This patient was referred to the emergency department for evaluation from physical therapy clinic. They noted the seem to have somewhat of an irregular heartbeat during his evaluation there. He had a history of weight loss and generalized fatigue and is also had a recent left knee arthroplasty. He has history is as not remarkable for any history of arrhythmias etc. His evaluation in the emergency department to discern where there is any acute emergent etiology of his symptoms was not remarkable for a couple of findings. He did have what appeared to be some intermittent episodes of controlled atrial fibrillation without any ischemic changes. He also had a low magnesium which was repleted in the emergency department. We also reviewed the risks and benefits of anticoagulation for stroke prevention and given his global weakness and fatigue and fall risk it was a mutual he does arrive that decision to continue on 81 mg of aspirin only be at this does not provide for any significant stroke risk reduction it is felt that that is preferable over his risk of fall and suffering intracranial hemorrhage etc. He had some history of subjective swallowing difficulty but this was not observed during his clinical examination and it was apparently only with solids. He apparently is does not wear his dentures and this may or may not be a contributing factor but certainly he may need an EGD and a case management referral was placed to help facilitate this evaluation. He did not have any evidence at this time that would indicate any ongoing ischemia, uncontrolled arrhythmia, or other concerning clinical picture such as infection etc. that would necessitate acute hospitalization or prolonged observation. He is being discharged in a stable condition at this time for outpatient testing and additional follow-up with return precaution discussed and reviewed with both he and his spouse. They voiced understanding and were appreciative of care. Medical Records I reviewed the patient's medical records. Lab Data I reviewed the patient's lab results. 06/13/22 17:04 06/13/22 17:04 Radiology Impressions Chest X-Ray 06/13/22 16:44 IMPRESSION: 1. No acute abnormality demonstrated. 2. There is no interval change from the prior examination. Laboratory Results WBC 4.2 10^3/uL (4.0-10.0) 06/13/22 17:04 RBC 4.06 10^6/uL (4.1-5.3) L 06/13/22 17:04 Hgb 9.2 g/dL (11.7-16.6) L 06/13/22 17:04 Hct 31.1 % (42.0-52.0) L 06/13/22 17:04 MCV 76.6 fl (80-94) L 06/13/22 17:04 MCH 22.7 pg (28.0-34.0) L 06/13/22 17:04 MCHC 29.6 g/dL (30.0-36.0) L 06/13/22 17:04 RDW 17.2 % (12.1-15.1) H 06/13/22 17:04 Plt Count 258 10^3/cmm (130-400) 06/13/22 17:04 MPV 9.3 fL (7.4-10.4) 06/13/22 17:04 Neut % (Auto) 62.3 % 06/13/22 17:04 Lymph % (Auto) 25.1 % 06/13/22 17:04 [place] % (Auto) 10.0 % 06/13/22 17:04 Eos % (Auto) 1.7 % 06/13/22 17:04 Baso % (Auto) 0.2 % 06/13/22 17:04 Neut # (Auto) 2.63 10^3/uL (1.8-7.7) 06/13/22 17:04 Lymph # (Auto) 1.1 10^3/uL (0.8-4.8) 06/13/22 17:04 [place] # (Auto) 0.4 10^3/uL (0.2-0.9) 06/13/22 17:04 Eos # (Auto) 0.1 10^3/uL (0.0-0.8) 06/13/22 17:04 Baso # (Auto) 0.0 10^3/uL (0.0-0.1) 06/13/22 17:04 Nucleated RBC % (auto) 0 % 06/13/22 17:04 Nucleated RBCs # 0.0 /100WBC 06/13/22 17:04 Sodium 136 mmol/L (136-145) 06/13/22 17:04 Potassium 4.8 mmol/L (3.5-5.1) 06/13/22 17:04 Chloride 101 mmol/L (98-107) 06/13/22 17:04 Carbon Dioxide 25 mmol/L (22-29) 06/13/22 17:04 Anion Gap 14.8 (5-19) 06/13/22 17:04 BUN 20 mg/dL (8-23) 06/13/22 17:04 Creatinine 0.9 mg/dL (0.7-1.2) 06/13/22 17:04 GFR Calculation Not Reportable 06/13/22 17:04 Glucose 140 mg/dL (65-115) H 06/13/22 17:04 Calculated Osmolality 287 mOsm/kg (285-295) 06/13/22 17:04 Calcium 9.5 mg/dL (8.5-10.5) 06/13/22 17:04 Magnesium 1.5 mg/dL (1.7-2.3) L 06/13/22 17:04 Total Bilirubin 0.4 mg/dL (0.15-1.2) 06/13/22 17:04 AST 25 U/L (0-40) 06/13/22 17:04 ALT 24 U/L (0-41) 06/13/22 17:04 Alkaline Phosphatase 134 U/L (40-130) H 06/13/22 17:04 Troponin T Gen 5 ng/L 25 ng/L (0-15) H 06/13/22 17:04 Troponin T 120 Minute 22.37 ng/L (0-15) H 06/13/22 19:28 Delta Troponin T -2.63 ABS# (0-10) L 06/13/22 19:28 NT-Pro-B Natriuret Pep 252 pg/mL (0-125) H 06/13/22 17:04 Total Protein 6.5 g/dL (6.6-8.7) L 06/13/22 17:04 Albumin 3.2 g/dL (3.5-5.2) L 06/13/22 17:04 Globulin 3.3 g/dL (1.3-4.6) 06/13/22 17:04 TSH 1.32 uIU/mL (0.27-4.20) 06/13/22 17:04 Urine Color Yellow (Yellow) 06/13/22 21:26 Urine Appearance Clear (CLEAR) 06/13/22 21: Urine pH 5 (5-7) 06/13/22 21: Ur Specific [place] 1.015 (1.005-1.030) 06/13/22: Urine Protein Neg (Negative) 06/13/22: Urine Glucose (UA) 4+ (Normal) H 06/13/22: Urine Ketones Negative (Negative) 06/13/22: Urine Blood Neg (Negative) 06/13/22: Urine Nitrate Negative (Negative) 06/13/22: Urine Bilirubin Neg (Negative) 06/13/22: Urine Urobilinogen Norm mg/dL (Negative) 06/13/22: Ur Leukocyte Esterase Negative (Negative) 06/13/22: EKG Data EKG 1: I personally reviewed and interpreted this EKG as follows: Interpretation: Contemporaneous review of EKG reveals a ventricular rate of 80 bpm. Generally sinus rhythm he does have 2 episodes of dropped QRS without any change in the [place] interval possible type II second-degree AV block. He has normal QRS duration, normal QTc interval, normal axis. No acute ST-T wave changes noted. EKG 2: I personally reviewed and interpreted this EKG as follows: Interpretation: Contemporaneous review of second EKG reveals a ventricular rate of 66 bpm. Tracing now reveals what appears to be atrial fibrillation with a controlled ventricular response. No acute ST-T wave changes noted. Discharge Plan Discharge Patient Disposition: Home Clinical Impression: Hypomagnesemia, Atrial fibrillation, controlled, Knee osteoarthritis Condition: Stable Prescriptions: No Action (DME) compression stockings See Rx Instructions .Route .MEDSUPPLY Qty: 2 0RF Rx Instructions: As directed aspirin 81 mg tablet,delayed release (DR/EC) 81 mg PO DAILY (DME) Diabetic Shoes See Rx Instructions .Route .MEDSUPPLY Qty: 1 3RF Rx Instructions: As directed (DME) diabetic shoes See Rx Instructions .Route .MEDSUPPLY Qty: 2 0RF Rx Instructions: As directed gabapentin [Neurontin] 800 mg tablet 800 mg PO QID 90 Days Qty: 360 1RF metformin 1,000 mg tablet 1,000 mg PO BID 90 Days Qty: 180 1RF Hold Instructions: Doctor's Order Januvia 100 mg tablet 100 mg PO DAILY 90 Days Qty: 90 1RF (DME) Left Ankle AFO See Rx Instructions .Route .MEDSUPPLY Qty: 1 0RF Rx Instructions: As directed Jardiance 10 mg tablet See Rx Instructions .ROUTE .COMPLEX Qty: 30 6RF Dose Instruction: TAKE 1 TABLET BY MOUTH EVERY DAY FOR 30 DAYS Rx Instructions: TAKE 1 TABLET BY MOUTH EVERY DAY FOR 30 DAYS atorvastatin 20 mg tablet 20 mg PO DAILY lisinopril 10 mg tablet 10 mg PO DAILY allopurinol 300 mg tablet 300 mg PO DAILY oxycodone 5 mg Tablet 5 mg PO Q6H PRN (Reason: Pain) Discharge Orders: Discharge ED (Routine); Ordered 06/13/22 Ordered By: Alen Metzger Referrals: Suman Fregoso MD [Primary Care Provider] - Discharge Diet: Usual diet Discharge Activity: Increase activity as tolerated, Use walker/crutches as instructed and As per PT/OT instructions Patient Instructions: Opioid Safety, Pain Management Activity Restrictions/Additional Instructions: SeeingContinue all your usual medications. We also recommend magnesium oxide 4 mg and taking 1 tablet daily. We have also placed a consult in with case management to help arrange follow-up for a EGD to evaluate your swallowing. If you have any new, worsening or other concerning symptoms return to this or the nearest emergency department otherwise follow-up with Dr. Pascual in the next 2 to 3 weeks or sooner if possible. Coding Level of Care Code ED Tool Designer for Joselin Fwd Exam Comprehensive
[2022-06-13 17:12] LABS: Basophils % 0.2 %; Eosinophils # 0.1 10^3/uL (0.0-0.8); Eosinophils % 1.7 %; Hematocrit 31.1 % (42.0-52.0); Hemoglobin 9.2 g/dL (11.7-16.6); Lymphocytes # 1.1 10^3/uL (0.8-4.8); Lymphocytes % 25.1 %; Mean Corpuscular HGB Conc 29.6 g/dL (30.0-36.0); Mean Corpuscular Hemoglobin 22.7 pg (28.0-34.0); Mean Corpuscular Volume 76.6 fl (80-94); Mean Platelet Volume 9.3 fL (7.4-10.4); Monocytes # 0.4 10^3/uL (0.2-0.9); Neutrophils # 2.63 10^3/uL (1.8-7.7); Neutrophils % 62.3 %; Nucleated Red Blood Cells % 0 %; Platelet Count 258 10^3/cmm (130-400); Red Blood Count 4.06 10^6/uL (4.1-5.3); Red Cell Distribution Width 17.2 % (12.1-15.1); White Blood Count 4.2 10^3/uL (4.0-10.0)
[2022-06-13 17:36] LABS: Troponin T (5th) Once 25 ng/L (0-15)
[2022-06-13 17:42] LABS: Alanine Aminotransferase 24 U/L (0-41); Albumin Level 3.2 g/dL (3.5-5.2); Alkaline Phosphatase 134 U/L (40-130); Anion Gap 14.8 (5-19); Aspartate Amino Transferase 25 U/L (0-40); Blood Urea Nitrogen 20 mg/dL (8-23); Calcium 9.5 mg/dL (8.5-10.5); Carbon Dioxide 25 mmol/L (22-29); Chloride 101 mmol/L (98-107); Creatinine Clr Calc Pharmacy 90.7464; Globulin 3.3 g/dL (1.3-4.6); Glucose 140 mg/dL (65-115); Magnesium 1.5 mg/dL (1.7-2.3); NT Pro B Type Natriuretic Pept 252 pg/mL (0-125); Osmolality Calculated 287 mOsm/kg (285-295); Potassium 4.8 mmol/L (3.5-5.1); Sodium 136 mmol/L (136-145); Thyroid Stimulating Hormone 1.32 uIU/mL (0.27-4.20); Total Bilirubin 0.4 mg/dL (0.15-1.2); Total Protein 6.5 g/dL (6.6-8.7)
[2022-06-13] MEDS: sodium chloride 0.9% 1,000 ML 999 ML IV (18:47)
--- NOTE | 2022-06-13 20:07 | ECG_ITS ---
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 Measurements Intervals [place] Rate: 66 P: 0 NC: 0 QRS: 26 QRSD: 93 T: 36 QT: 399 QTc: 418 Interpretive Statements Sinus rhythm with a first-degree AV block. Sinus pauses. Features of sinus node dysfunction Electronically Signed On 06-14-2022 21:45:09 APPLICATIONS ENGINEER by Francesco Ty M.D. [id number]
[2022-06-13 20:29] LABS: Troponin 5 2HR 22.37 ng/L (0-15)
[2022-06-13 20:33] LABS: Troponin 5 2HR Delta -2.63 ABS# (0-10)
[2022-06-13] MEDS: magnesium sulfate premix 2 GM/50 ML PIGGYBACK IV (20:51)
[2022-06-13 20:52] VITALS: BP 132/68; PULSE 82; RESP 16; O2SAT 96
[2022-06-13 21:32] LABS: Add Urine Microscopic? NO; Charge for UA Resulting for Rev
[2022-06-13 21:47] LABS: Bilirubin Urine Neg (Negative); Blood Urine Neg (Negative); Glucose Urine UA 4+ (Normal); Ketones Urine Negative (Negative); Leukocyte Esterase Urine Negative (Negative); Nitrate Urine Negative (Negative); Protein Urine Neg (Negative); Specific Gravity, Urine 1.015 (1.005-1.030); Urine Appearance Clear (CLEAR); Urine Color Yellow (Yellow); Urobilinogen Urine Norm (Negative); pH Urine 5 (5-7)
--- NOTE | 2022-06-14 09:35 | DCPLANNER ---
Addendum entered by Melissa Sparrow 08/02/22 07:51: This appointment was rescheduled Addendum entered by Melissa Sparrow 06/21/22 12:31: Patient has a follow up appointment scheduled for Monday, July 11, 2022 at 2:[address] Enriquez at general surgery. Clinic will call patient with appointment information. Original Note: manager rail had message to schedule a follow up appointment for patient with general surgery. manager rail sent patients information to the front office staff at general surgery. Patients information will be printed and reviewed. Clinic will call patient with appointment information.
== END 2022-06-13 22:59 | disposition home or self-care (01) ==
PROVIDERS: Emergency Provider Emergency Medicine; PCP Family Medicine
DX: E83.42 Hypomagnesemia (principal); I48.91 Unspecified atrial fibrillation; Z79.82 Long term (current) use of aspirin; Z79.84 Long term (current) use of oral hypoglycemic drugs; E11.9 Type 2 diabetes mellitus without complications; I10 Essential (primary) hypertension; E78.2 Mixed hyperlipidemia
CPT/HCPCS: 36415; 71045; 80053; 81003; 83735; 83880; 84443; 84484; 85025; 93005; 96365; 99285; J3475; J7030

== ENCOUNTER → 2022-06-26 11:14 | Outpatient (BNVA) | payer MEDICARE, MEDICAID, SELFPAY | PROVIDERS: PCP Family Medicine; Visit Provider Nurse Practitioner | DX: I95.9 Hypotension, unspecified (principal); E11.69 Type 2 diabetes mellitus with other specified complication | CPT/HCPCS: 80048; 83036 ==

== ENCOUNTER 2022-07-05 06:00 | Outpatient (RCR) | payer MEDICARE, MEDICAID, SELFPAY | END 2022-08-01 23:59 | disposition home or self-care (01) | LOC: WPT 06:00 | PROVIDERS: PCP Family Medicine; Visit Provider Orthopaedic Surgery | DX: Z47.1 Aftercare following joint replacement surgery (principal); Z96.652 Presence of left artificial knee joint | CPT/HCPCS: 97110; 97112; 97530 ==

== ENCOUNTER 2022-08-02 06:00 | Outpatient (RCR) | payer MEDICARE, MEDICAID, SELFPAY | END 2022-09-01 23:59 | disposition home or self-care (01) | LOC: WPT 06:00 | PROVIDERS: PCP Family Medicine; Visit Provider Orthopaedic Surgery | DX: Z47.1 Aftercare following joint replacement surgery (principal); Z96.652 Presence of left artificial knee joint | CPT/HCPCS: 97110; 97112; 97116; 97164; 97530; 99203 ==

== ENCOUNTER → 2022-08-02 13:56 | Outpatient (BNVA) | payer MEDICARE, MEDICAID, SELFPAY | PROVIDERS: PCP Family Medicine; Visit Provider Surgery | DX: R13.10 Dysphagia, unspecified (principal); Z12.11 Encounter for screening for malignant neoplasm of colon | CPT/HCPCS: 99203; 99213 ==

== ENCOUNTER 2022-08-02 15:44 | Outpatient (CLI) | payer MEDICARE, MEDICAID, SELFPAY | END 2022-08-02 15:45 | disposition home or self-care (01) | LOC: SPT 15:44 | PROVIDERS: PCP Family Medicine; Visit Provider Podiatrist Foot & Ankle Surgery | DX: Z46.89 Encounter for fitting and adjustment of other specified devices (principal); M76.822 Posterior tibial tendinitis, left leg | CPT/HCPCS: 97760; L1902 ==

== ENCOUNTER → 2022-08-15 13:06 | Outpatient (BNVA) | payer MEDICARE, MEDICAID, SELFPAY | PROVIDERS: PCP Family Medicine; Visit Provider Family Medicine | DX: R63.4 Abnormal weight loss (principal); D64.9 Anemia, unspecified; E11.69 Type 2 diabetes mellitus with other specified complication; Z87.891 Personal history of nicotine dependence; R19.06 Epigastric swelling, mass or lump; N18.9 Chronic kidney disease, unspecified; T14.8XXA Other injury of unspecified body region, initial encounter; X58.XXXA Exposure to other specified factors, initial encounter | CPT/HCPCS: 80053; 80061; 82728; 83036; 83540; 85025 ==

== ENCOUNTER 2022-08-25 15:40 | Outpatient (CLI) | payer MEDICARE, MEDICAID, SELFPAY ==
--- NOTE | 2022-08-25 16:13 | CT_ITS ---
WS: [id number] CT chest abdomen wo con 08/25/2022 4:13 PM REASON FOR EXAM: D64.9 - Anemia, unspecified COMPARISON: None ORDER DATE: 08/25/2022 4:13 PM FINDINGS: Band of scarring or subsegmental atelectasis left lower lobe. There is an elongated soft ti ssue nodule associated with one linear band of scar which measures nearly 20 mm in length and 10 mm i n width without calcification no sign of any adjacent dilated bronchus. It is within 1 cm of the pleu ra. No pleural effusions or pericardial effusion. Tracheal bronchial anatomy is patent. Esophagus and gastroesophageal junction are grossly normal. Left and right coronary artery calcifications. Minor c alcific plaque of nonaneurysmal thoracic aorta. The central pulmonary arteries are nonenlarged. Calci fied granulomas in the right paratracheal region, AP window and subcarinal region from remote granulo matous disease. No axillary, supraclavicular, mediastinal or hilar masses or adenopathy. Normal adren al glands. Partial fatty replacement of included portions of the pancreas. Calcified granulomas in th e enlarged spleen. No space-occupying lesion of included portions of the liver. Gallbladder is unrema rkable. Kidneys unremarkable. No evidence of retroperitoneal adenopathy. Mild atherosclerotic aortic change without aneurysm. Mild generalized kyphosis of the thoracic spine secondary to disc space narr owing. No acute bony abnormality. Remote healed left seventh and eighth rib fractures. No lytic or bl astic bony destructive lesions. CT/CT chest abdomen wo con IMPRESSION: 1. Concerning nodule in the left lower lobe recommend PET/CT imaging or histol ogic diagnosis. 2. Remote granulomatous disease. 3. Atherosclerotic coronary artery calcifications. 4. Left lower lobe scarring or subsegmental atelectasis. 5. Splenomegaly
== END 2022-08-25 15:41 | disposition home or self-care (01) ==
LOC: RAD 15:45
PROVIDERS: PCP Family Medicine; Visit Provider Family Medicine
DX: D64.9 Anemia, unspecified (principal); R63.4 Abnormal weight loss; Z87.891 Personal history of nicotine dependence; R91.1 Solitary pulmonary nodule; I25.10 Atherosclerotic heart disease of native coronary artery without angina pectoris; D71 Functional disorders of polymorphonuclear neutrophils; R16.1 Splenomegaly, not elsewhere classified
CPT/HCPCS: 71250; 74150

== ENCOUNTER 2022-08-30 09:24 | Day surgery (SDC) | payer MEDICARE, MEDICAID, SELFPAY ==
[2022-08-28 11:49] VITALS: BMI 26.7
[2022-08-30 09:51] VITALS: BP 174/94; PULSE 93; RESP 18; TEMP 36.1; O2SAT 99
[2022-08-30] MEDS: sodium chloride 0.9% 1,000 ML 30 ML IV (10:09)
[2022-08-30 10:10] LABS: Glucose Point of Care 146 mg/dL (70-110)
--- NOTE | 2022-08-30 11:34 | P.ANESASSM_ITS ---
Pre-Anesthetic Assessment Height/Weight: Height 1.83 m Weight 89.358 kg Temp Pulse Resp BP Pulse Ox O2 Del Method 97 F L 93 18 174/94 99 08/30/22 09:51 08/30/22 09:51 08/30/22 09:51 08/30/22 09:51 08/30/22 09:51 08/30/22 09:51 Preop Diagnosis: screening, dysphagia Operation Date: 08/30/22 11:00 Proposed Procedures p 70340 EGD with ball 50012 COlon Z12.11 R13.1(Not Applicable) - DO charlie Saucedo Colonoscopy(Not Applicable) - [place] Enriquez DO Familial anesthetic complications: None Was Beta Taurus taken within 24 hours: N/A Was Clonidine taken within 24 hours: N/A Last intake: Intake Last Liquid Date 08/29/22 Last Liquid Time 21:00 Last Solid Date 08/28/22 Last Solid Time 19:00 Social Tobacco (chewing tobacco ) and No alcohol Exam alert, oriented x 3 and clear to auscultation bilaterally Airway Submandibular: within normal limits Cervical ROM: within normal limits Mallampati: Class III Dentition: false History/ROS No significant history except as noted Pulmonary None reported CV/HEM Anemia and Hypertension None reported Hepatic None reported GI None reported Metabolic Diabetes Mellitus Musc/skel Osteoarthritis/DJD Neuropsych None reported Anesthetic Plan ASA status: 3 Anesthesia: Anesthesia Evaluation and MAC Risk of > 500 ml blood loss (7ml/kg in children): No Medications/Allergies Home Medications Medication Instructions Recorded Confirmed Last Taken Type aspirin 81 mg tablet,delayed 81 mg PO DAILY 06/24/19 08/30/22 08/22/22 History release compression stockings #2 ea 07/19/21 08/30/22 Unknown Rx Diabetic Shoes #1 ea 10/19/21 08/30/22 Unknown Rx diabetic shoes #2 ea 10/27/21 08/30/22 Unknown Rx gabapentin 800 mg tablet 800 mg PO QID 90 days #360 tabs 10/27/21 08/28/22 08/28/22 Rx (Neurontin) metformin 1,000 mg tablet 1,000 mg PO BID 90 days #180 tabs 10/27/21 08/28/22 08/28/22 Rx sitagliptin phosphate 100 mg 100 mg PO DAILY 90 days #90 tabs 10/27/21 08/30/2223 Rx tablet (Januvia) Left Ankle AFO #1 ea 11/30/21 08/30/22 Unknown Rx allopurinol 300 mg tablet 300 mg PO DAILY 06/13/22 08/30/22 08/29/22 History atorvastatin 20 mg tablet 20 mg PO DAILY 06/13/22 08/30/22 08/29/22 History XXL ASO to the Left #1 ea 08/02/22 08/30/22 Unknown Rx oxycodone 5 mg tablet 5 mg PO Q6H PRN Pain 30 days #60 08/03/22 08/28/22 08/28/22 Rx tabs sertraline 25 mg tablet (Zoloft) 25 mg PO DAILY for mood / 08/03/22 08/28/22 08/28/22 Rx depression #30 tabs pantoprazole 40 mg tablet,delayed 40 mg PO BID 30 days #60 tabs 08/15/22 08/30/22 08/29/22 Rx release (Protonix) sucralfate 1 gram tablet (Carafate) 1 g PO BID 30 days #60 tabs 08/15/22 08/30/22 08/28/22 Rx ferrous sulfate 325 mg (65 mg 325 mg PO DAILY 30 days #30 tabs 08/17/22 08/28/22 08/28/22 Rx iron) tablet empagliflozin 10 mg tablet 1 mg PO DAILY 08/28/22 08/30/22 08/29/22 History (Jardiance) Allergies Allergy/AdvReac Type Severity Reaction Status Date / Time pregabalin [From Lyrica] Allergy Severe swelling Verified 08/28/22 11:53 in lower extremeties Current Medications Generic Name Dose Route Start Last Admin Trade Name Freq PRN Reason Stop Dose Admin Sodium Chloride 1,000 mls @ 30 mls/hr 08/30/22 09:45 08/30/22 10:09 Sodium Chloride 0.9% IV 08/31/22 09:44 30 mls/hr .Q24H YESI Administration PFSH Anesthesia Medical History Anemia Chewing tobacco use Chronic gout Chronic idiopathic constipation -bowel regimen Chronic knee pain DDD (degenerative disc disease) Diabetic neuropathy, painful Encounter for long-term opiate analgesic use Erectile disorder, lifelong, generalized, mild Essential hypertension Essential hypertension -VSS; continue to monitor -continue oral antihypertensives History of amputation of left great toe 12/08/19 Dr. 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 Taylor S/P routine circumcision Family History Mother Myocardial infarct Father Kidney disease Other Heart disease Social History Smoking and tobacco status: never smoked Second hand smoke exposure: No Alcohol intake: current Alcohol intake frequency: other Alcohol type: beer Counseling given: Yes Type of alcohol counseling provided: other Other alcohol counseling details: DISCUSSED ALCOHOL USE PROHIBITED WITH PAIN MEDICATIONS Current occupational status: retired Data Anesthesia Cardiac Studies: Echocardiogram 01/10/22
--- NOTE | 2022-08-30 11:58 | W.PM.OPSUD ---
Surgery/Procedure H&P Update DATE OF PROCEDURE: August 30, 2022 DATE H&P PERFORMED: 08/02/22 H&P UPDATE INFORMATION: I have reviewed H&P completed within last 30 days, I have examined patient prior to procedure and No changes to prior documentation PREOP DIAGNOSIS: screening, dysphagia PLANNED PROCEDURE: Operation Date: 08/30/22 11:00 Proposed Procedures p 78627 EGD with ball [id number] COlon Z12.11 R13.1(Not Applicable) - DO charlie Saucedo Colonoscopy(Not Applicable) - [place] Enriquez DO
[2022-08-30 12:31] VITALS: BP 147/78; PULSE 73; RESP 16; TEMP 36.1; O2SAT 97
[2022-08-30 12:36] VITALS: BP 137/81; PULSE 72; RESP 18; O2SAT 99
[2022-08-30 12:46] VITALS: BP 165/85; PULSE 74; RESP 18; O2SAT 99
--- NOTE | 2022-08-30 16:37 | ANE.PACU2 ---
Inpatient post-anesthesia follow up: Airway intact: Yes Vital signs: Temperature 97.0 F Pulse Rate 74 Respiratory Rate 18 Blood Pressure 165/85 Pulse Oximetry 99 Oxygen Delivery Me thod Room Air Oxygen Flow Rate Fraction of Inspir ed Oxygen Hydration adequate: Yes Nausea and vomiting: No Pain level: 2 Mental status: Baseline
== END 2022-08-30 12:58 | disposition home or self-care (01) ==
PROVIDERS: PCP Family Medicine; Visit Provider Surgery
PROC: 0DJD8ZZ Inspection of Lower Intestinal Tract, Via Natural or Artificial Opening Endoscopic (ICD-10-PCS; CPT 45378; 2022-08-30 11:00)
DX: Z12.11 Encounter for screening for malignant neoplasm of colon (principal); R13.10 Dysphagia, unspecified; K57.30 Diverticulosis of large intestine without perforation or abscess without bleeding; F17.220 Nicotine dependence, chewing tobacco, uncomplicated; I10 Essential (primary) hypertension; Z79.82 Long term (current) use of aspirin; E11.40 Type 2 diabetes mellitus with diabetic neuropathy, unspecified; E78.2 Mixed hyperlipidemia
CPT/HCPCS: 36416; 43235; 82962; G0121; J2704; J7030

== ENCOUNTER 2022-09-02 06:00 | Outpatient (RCR) | payer MEDICARE, MEDICAID, SELFPAY | END 2022-10-01 23:59 | disposition home or self-care (01) | LOC: WPT 06:00 | PROVIDERS: PCP Family Medicine; Visit Provider Orthopaedic Surgery | DX: Z47.1 Aftercare following joint replacement surgery (principal); Z96.652 Presence of left artificial knee joint | CPT/HCPCS: 97110; 97112; 97530 ==

== ENCOUNTER 2022-10-02 06:00 | Outpatient (RCR) | payer MEDICARE, MEDICAID, SELFPAY | END 2022-11-01 23:59 | disposition home or self-care (01) | LOC: WPT 06:00 | PROVIDERS: PCP Family Medicine; Visit Provider Orthopaedic Surgery | DX: Z47.1 Aftercare following joint replacement surgery (principal); Z96.652 Presence of left artificial knee joint | CPT/HCPCS: 97110; 97112; 97164; 97530 ==

== ENCOUNTER 2022-11-04 05:46 | Outpatient (CLI) | payer MEDICARE, MEDICAID, SELFPAY ==
--- NOTE | 2022-11-04 09:00 | PETR_ITS ---
PROCEDURE INFORMATION: Exam: PET/CT Skull Base to Mid-thigh Exam date and time: 11/04/2022 9:28 AM Age: 72 years old Clinical indication: Abnormal findings; Nonspecific abnormal finding of lung field; Additional info: R91.8 - other nonspecific abnormal finding of lung field LABS AND CLINICAL REPORTS: Glucose: 141 mg/dl Treatment strategy for malignancy (PET staging): Initial Staging (PI) TECHNIQUE: Imaging protocol: Following at least four-hour fasting and following the injection of radiopharmaceutical, low dose CT images were obtained. Then, PET images were obtained. Attenuation corrected images were constructed using the CT scan. Fused images of PET and CT were reviewed. The standardized uptake values (SUV) reported below are maximum values within a region of interest, expressed in gm/ml. Exam includes orbital meatal line to mid-thigh. Radiopharmaceutical: 12.32 mCi F-18 FDG (Fluorodeoxyglucose), IV. Time of imaging post radiopharmaceutical administration: 1 hour Injection site: Right antecubital COMPARISON: CT chest abdomen wo con 08/25/2022 4:15 PM, CT chest 12/09/2017 FINDINGS: Brain: Visualized brain has normal physiologic uptake. Pharynx: No abnormal uptake. Larynx: No abnormal uptake. Lungs, pleura and trachea: No abnormal uptake. A previously noted ovoid nodular density in the posterior left lower lobe is similar in size compared with 08/25/2022 measuring 1.7 x 1.0 cm in the axial plane on series 3, image 70 and is not radiotracer avid, SUV max 0.7. This nodule appears similar in size compared with at least 12/09/2017. A right middle lobe calcified granuloma is present. Heart: Normal physiologic uptake. Mediastinal space: No abnormal uptake. Liver: No abnormal uptake. Gallbladder and bile ducts: No abnormal uptake. Pancreas: No abnormal uptake. Spleen: No abnormal uptake. Moderate splenomegaly. Calcified granulomas in the spleen are present. Adrenal glands: No abnormal uptake. Kidneys and ureters: Normal physiologic uptake. Stomach and bowel: Uptake within the colon is diffusely elevated and is likely physiologic without definitive evidence of a discrete lesion. Assessment of the wall of the bowel is limited without intraluminal contrast. Vasculature: No abnormal uptake. There are diffuse atherosclerotic changes including within the coronary arteries. Lymph nodes: There are non radiotracer avid calcified mediastinal and bilateral hilar lymph nodes. There are mildly prominent bilateral external iliac chain lymph nodes which are radiotracer avid for example on the left on series 3, image 148 measuring 3.1 x 1.8 cm, SUV max 5.9 and measuring 1.1 cm on the left on series 3, image 139, SUV max 3.2. A right external iliac chain lymph node measures 2.7 x 1.3 cm on series 3, image 145, SUV max 3.5. Bones/joints: There is symmetric appearing elevated uptake at the bilateral sternoclavicular joints accompanied by osteophyte formation and subcortical cystic changes which appears degenerative, SUV max 7.1 on the right and 6.4 on the left. Elevated uptake is identified in the region of the bilateral glenohumeral joints and distal supraspinatus and infraspinatus tendons which is greatest on the left, SUV max 6.0. On the left this is associated with apparent marked erosive changes of the posterior aspect of the humeral head measuring 1.7 cm in diameter on series 3, image 40 as well as a large joint effusion and probable abnormal fluid in the subacromial subdeltoid bursa. Degenerative appearing uptake is noted between the L3 and L4 spinous processes, SUV max 4.8. Uptake is identified in the region of the bilateral hip joint capsules which is greatest on the left, SUV max 6.6 associated with probable cortical erosive changes in the region of the bilateral femoral head/neck junctions. No acute fracture is identified. Soft tissues: No abnormal uptake in the visualized head, neck, chest, abdomen, pelvis, and extremities. METRICS: Mediastinal blood pool: SUV max 1.9 Liver uptake: SUV max 2.5 [facility] [id number] IMPRESSION: 1. Similar size of a solid appearing left lower lobe pulmonary nodule without elevated uptake. This nodule appears similar in size compared with at least 12/09/2017 favoring a benign etiology. 2. Radiotracer avid enlarged bilateral external iliac chain lymph nodes are noted.This may be reactive, secondary to infectious or inflammatory involvement. Neoplastic involvement cannot be excluded. 3. Splenomegaly without elevated uptake. 4. Old granulomatous changes. 5. Elevated uptake are noted involving the bilateral glenohumeral joints, bilateral hip joints, and bilateral sternoclavicular joints. While this uptake may be inflammatory in nature, related to underlying primary osteoarthritic changes, there appear to be osseous erosive changes without underlying abnormal marrow signal intensity involving the left humeral head and left femoral head associated with joint effusions for which inflammatory arthropathy is a consideration. Osteomyelitis is a less likely consideration given the involvement of more than one joint. Consider dedicated MRI of the left shoulder left hip for further assessment. 6. Diffusely elevated bowel uptake is likely physiologic. No definitive evidence of neoplastic involvement.
== END 2022-11-04 05:47 | disposition home or self-care (01) ==
LOC: RAD 11-06 05:46
PROVIDERS: PCP Family Medicine; Visit Provider Family Medicine
DX: R91.8 Other nonspecific abnormal finding of lung field (principal); R59.0 Localized enlarged lymph nodes; R16.1 Splenomegaly, not elsewhere classified; R93.7 Abnormal findings on diagnostic imaging of other parts of musculoskeletal system
CPT/HCPCS: 78815; A9552

== ENCOUNTER → 2022-12-01 09:09 | Outpatient (BNVA) | payer MEDICARE, MEDICAID, SELFPAY | PROVIDERS: PCP Family Medicine; Visit Provider Thoracic Surgery (Cardiothoracic Vascular Surgery) | DX: E11.52 Type 2 diabetes mellitus with diabetic peripheral angiopathy with gangrene (principal); L97.422 Non-pressure chronic ulcer of left heel and midfoot with fat layer exposed | CPT/HCPCS: 97597; 97598; 99213 ==

== ENCOUNTER → 2022-12-08 10:27 | Outpatient (BNVA) | payer MEDICARE, MEDICAID, SELFPAY | PROVIDERS: PCP Family Medicine; Visit Provider Thoracic Surgery (Cardiothoracic Vascular Surgery) | DX: E11.52 Type 2 diabetes mellitus with diabetic peripheral angiopathy with gangrene (principal); L97.422 Non-pressure chronic ulcer of left heel and midfoot with fat layer exposed | CPT/HCPCS: 11042; 11045; A6021; A6210; A6248 ==

== ENCOUNTER → 2022-12-15 09:00 | Outpatient (BNVA) | payer MEDICARE, MEDICAID, SELFPAY | PROVIDERS: PCP Family Medicine; Visit Provider Thoracic Surgery (Cardiothoracic Vascular Surgery) | DX: E11.52 Type 2 diabetes mellitus with diabetic peripheral angiopathy with gangrene (principal); L97.422 Non-pressure chronic ulcer of left heel and midfoot with fat layer exposed | CPT/HCPCS: 97597; 97598; A6021; A6210 ==

== ENCOUNTER → 2022-12-22 09:44 | Outpatient (BNVA) | payer MEDICARE, MEDICAID, SELFPAY | PROVIDERS: PCP Family Medicine; Visit Provider Thoracic Surgery (Cardiothoracic Vascular Surgery) | DX: E11.52 Type 2 diabetes mellitus with diabetic peripheral angiopathy with gangrene (principal); L97.422 Non-pressure chronic ulcer of left heel and midfoot with fat layer exposed | CPT/HCPCS: 11042; A6021; A6210 ==

== ENCOUNTER → 2022-12-29 12:57 | Outpatient (BNVA) | payer MEDICARE, MEDICAID, SELFPAY | PROVIDERS: PCP Family Medicine; Visit Provider Thoracic Surgery (Cardiothoracic Vascular Surgery) | DX: E11.52 Type 2 diabetes mellitus with diabetic peripheral angiopathy with gangrene (principal); L97.422 Non-pressure chronic ulcer of left heel and midfoot with fat layer exposed | CPT/HCPCS: 97597; A6021; A6210 ==

== ENCOUNTER → 2023-01-12 09:48 | Outpatient (BNVA) | payer MEDICARE, MEDICAID, SELFPAY | PROVIDERS: PCP Family Medicine; Visit Provider Thoracic Surgery (Cardiothoracic Vascular Surgery) | DX: E11.52 Type 2 diabetes mellitus with diabetic peripheral angiopathy with gangrene (principal); L97.422 Non-pressure chronic ulcer of left heel and midfoot with fat layer exposed | CPT/HCPCS: 11042; 97597 ==

== ENCOUNTER → 2023-02-02 10:11 | Outpatient (BNVA) | payer MEDICARE, MEDICAID, SELFPAY | PROVIDERS: PCP Family Medicine; Visit Provider Thoracic Surgery (Cardiothoracic Vascular Surgery) | DX: E11.621 Type 2 diabetes mellitus with foot ulcer (principal); L97.422 Non-pressure chronic ulcer of left heel and midfoot with fat layer exposed | CPT/HCPCS: 99212; A6210 ==

== ENCOUNTER 2023-03-15 06:00 | Outpatient (RCR) | payer MEDICARE, MEDICAID, SELFPAY | END 2023-04-03 23:59 | disposition home or self-care (01) | LOC: WPT 06:00 | PROVIDERS: Visit Provider Orthopaedic Surgery | DX: Z47.1 Aftercare following joint replacement surgery (principal); Z96.651 Presence of right artificial knee joint | CPT/HCPCS: 97110; 97112; 97161; 97530 ==

== ENCOUNTER 2023-04-04 06:00 | Outpatient (RCR) | payer MEDICARE, MEDICAID, SELFPAY | END 2023-05-03 23:59 | disposition home or self-care (01) | LOC: WPT 06:00 | PROVIDERS: Visit Provider Orthopaedic Surgery | DX: Z47.1 Aftercare following joint replacement surgery (principal); Z96.651 Presence of right artificial knee joint | CPT/HCPCS: 97110; 97112; 97116; 97530 ==

== ENCOUNTER 2023-05-04 06:00 | Outpatient (RCR) | payer MEDICARE, MEDICAID, SELFPAY | END 2023-06-03 23:59 | disposition home or self-care (01) | LOC: WPT 06:00 | PROVIDERS: Visit Provider Orthopaedic Surgery | DX: Z47.1 Aftercare following joint replacement surgery (principal); Z96.651 Presence of right artificial knee joint | CPT/HCPCS: 97110; 97112; 97530 ==

== ENCOUNTER 2023-06-04 06:00 | Outpatient (RCR) | payer MEDICARE, MEDICAID, SELFPAY | END 2023-07-04 23:59 | disposition home or self-care (01) | LOC: WPT 06:00 | PROVIDERS: Visit Provider Orthopaedic Surgery | DX: Z47.1 Aftercare following joint replacement surgery (principal); Z96.651 Presence of right artificial knee joint | CPT/HCPCS: 97110; 97112; 97530 ==

== ENCOUNTER → 2024-03-11 14:05 | Outpatient (BNVA) | payer MEDICAID, MEDICARE, SELFPAY | PROVIDERS: PCP Family Medicine; Visit Provider Nurse Practitioner Family | DX: Z12.5 Encounter for screening for malignant neoplasm of prostate (principal); Z79.891 Long term (current) use of opiate analgesic; I10 Essential (primary) hypertension; E78.2 Mixed hyperlipidemia; E11.69 Type 2 diabetes mellitus with other specified complication; E55.9 Vitamin D deficiency, unspecified; D64.9 Anemia, unspecified | CPT/HCPCS: 80053; 80061; 81003; 82306; 83036; 83550; 84443; 85025; G0103 ==

== ENCOUNTER → 2024-03-18 11:55 | Outpatient (BNVA) | payer MEDICARE, MEDICAID, SELFPAY | PROVIDERS: PCP Family Medicine; Visit Provider Nurse Practitioner Family | DX: I10 Essential (primary) hypertension (principal) | CPT/HCPCS: 85025 ==

== ENCOUNTER → 2024-04-14 14:58 | Outpatient (BNVA) | payer MEDICARE, MEDICAID, SELFPAY | PROVIDERS: PCP Family Medicine; Visit Provider Nurse Practitioner Family | DX: M1A.9XX0 Chronic gout, unspecified, without tophus (tophi) (principal) | CPT/HCPCS: 84550 ==

== ENCOUNTER 2024-06-17 06:00 | Outpatient (RCR) | payer MEDICARE, MEDICAID, SELFPAY | END 2024-07-04 23:59 | disposition home or self-care (01) | LOC: WPT 06:00 | PROVIDERS: Visit Provider Nurse Practitioner Family | DX: M25.569 Pain in unspecified knee (principal); G89.29 Other chronic pain | CPT/HCPCS: 97110; 97112; 97161; 97530 ==

== ENCOUNTER → 2024-06-18 09:04 | Outpatient (BNVA) | payer MEDICARE, MEDICAID, SELFPAY | PROVIDERS: Visit Provider Nurse Practitioner Family | DX: Z12.5 Encounter for screening for malignant neoplasm of prostate (principal); E11.69 Type 2 diabetes mellitus with other specified complication; I10 Essential (primary) hypertension; E78.2 Mixed hyperlipidemia; M15.9 Polyosteoarthritis, unspecified; D64.9 Anemia, unspecified; Z79.891 Long term (current) use of opiate analgesic | CPT/HCPCS: 80053; 80061; 81003; 82306; 82310; 83036; 83550; 83735; 83970; 84443; 85025; G0103 ==

== ENCOUNTER 2024-07-05 06:00 | Outpatient (RCR) | payer MEDICARE, MEDICAID, SELFPAY | END 2024-08-01 23:59 | disposition home or self-care (01) | LOC: WPT 06:00 | PROVIDERS: Visit Provider Nurse Practitioner Family | DX: M25.562 Pain in left knee (principal); G89.29 Other chronic pain | CPT/HCPCS: 97110; 97112; 97530 ==

== ENCOUNTER 2024-08-02 06:00 | Outpatient (RCR) | payer MEDICARE, MEDICAID, SELFPAY | END 2024-09-01 23:59 | disposition home or self-care (01) | LOC: WPT 06:00 | PROVIDERS: Visit Provider Nurse Practitioner Family | DX: M25.562 Pain in left knee (principal); G89.29 Other chronic pain | CPT/HCPCS: 97110; 97112; 97530 ==

== ENCOUNTER → 2025-01-08 09:23 | Outpatient (BNVA) | payer MEDICARE, MEDICAID, SELFPAY | PROVIDERS: PCP Nurse Practitioner Family; Visit Provider Family Medicine | DX: M1A.9XX0 Chronic gout, unspecified, without tophus (tophi) (principal) | CPT/HCPCS: 84550 ==

== ENCOUNTER → 2025-04-09 11:08 | Outpatient (BNVA) | payer MEDICARE, MEDICAID, SELFPAY | PROVIDERS: PCP Nurse Practitioner Family; Visit Provider Family Medicine | DX: E11.9 Type 2 diabetes mellitus without complications (principal) | CPT/HCPCS: 80053; 83036 ==

== ENCOUNTER → 2025-04-23 09:12 | Outpatient (BNVA) | payer MEDICARE, MEDICAID, SELFPAY | PROVIDERS: PCP Nurse Practitioner Family; Visit Provider Podiatrist Foot & Ankle Surgery | DX: M14.672 Charcot's joint, left ankle and foot (principal); E11.42 Type 2 diabetes mellitus with diabetic polyneuropathy; Z79.84 Long term (current) use of oral hypoglycemic drugs | CPT/HCPCS: 99203 ==